=== PATIENT | male | born 1960 | race Caucasian/White ===

== ENCOUNTER 2020-01-26 09:06 | Outpatient (REF) | payer OTHER, SELFPAY ==
--- NOTE | 2020-01-26 09:42 | XR_ITS ---
EXAMINATION: XR HAND, LEFT XR HAND, RIGHT CLINICAL INFORMATION: Hand pain COMPARISON: Left hand radiographs 05/17/2016 TECHNIQUE: 3 views of each hand FINDINGS: Left hand: No fracture or dislocation. There is fusion at the first metacarpophalangeal joint, unchanged from prior. Remaining joint spaces are maintained. Small osteophytes at the first interphalangeal joint. The soft tissues are unremarkable. No osseous erosions. Right hand: No fracture or dislocation. Alignment is maintained. Mild joint space narrowing at the first metacarpophalangeal joint and first interphalangeal joint with osteophyte formation. Osteophytes are also noted at the second and third metacarpophalangeal joints. No osseous erosions. The soft tissues are unremarkable. XR/XR hand RT min 3V IMPRESSION: Arthritic changes as above. Chronic fusion of the left hand first metacarpophalangeal joint.
--- NOTE | 2020-01-26 09:42 | XR_ITS ---
EXAMINATION: XR HAND, LEFT XR HAND, RIGHT CLINICAL INFORMATION: Hand pain COMPARISON: Left hand radiographs 05/17/2016 TECHNIQUE: 3 views of each hand FINDINGS: Left hand: No fracture or dislocation. There is fusion at the first metacarpophalangeal joint, unchanged from prior. Remaining joint spaces are maintained. Small osteophytes at the first interphalangeal joint. The soft tissues are unremarkable. No osseous erosions. Right hand: No fracture or dislocation. Alignment is maintained. Mild joint space narrowing at the first metacarpophalangeal joint and first interphalangeal joint with osteophyte formation. Osteophytes are also noted at the second and third metacarpophalangeal joints. No osseous erosions. The soft tissues are unremarkable. XR/XR hand LT min 3V IMPRESSION: Arthritic changes as above. Chronic fusion of the left hand first metacarpophalangeal joint.
[2020-01-26 10:14] LABS: MANUAL DIFF FLAG NO
[2020-01-26 10:33] LABS: Basophils Percent Auto 0.3 % (0-2); Eosinophils Absolute Auto 0.2 X10*3/uL (0.0-0.4); Eosinophils Percent Auto 2.5 % (0-4); Hematocrit 41.3 % (42-52); Hemoglobin 13.5 g/dl (14.0-18.0); Imm Gran Abs Auto 0.04 X10*3/uL (0.00-0.03); Imm Gran Pct Auto 0.5 % (0.0-0.4); Mean Corpuscular HGB Conc 32.7 g/dl (31.0-36.0); Mean Corpuscular Hemoglobin 29.7 pg (27.0-33.0); Mean Corpuscular Volume 90.8 fL (80-98); Monocytes Absolute Auto 0.6 X10*3/uL (0.1-1.2); Monocytes Percent Auto 7.1 % (2-11); Neutrophils Absolute Auto 4.7 X10*3/uL (2.0-8.3); Neutrophils Percent Auto 54.6 % (45-73); Platelet Count 259 X10*3/uL (160-400); Red Blood Count 4.55 X10*6/uL (4.60-5.80); Red Cell Distribution Width 11.9 % (11.0-16.0); White Blood Count 8.6 X10*3/uL (4.8-10.8)
[2020-01-26 11:00] LABS: Alanine Aminotransferase 33 U/L (0-40); Albumin Level 4.5 g/dL (3.5-5.0); Alkaline Phosphatase 48 U/L (39-117); Anion Gap 14 (12-20); Aspartate Amino Transferase 24 U/L (5-37); Bilirubin Total 0.7 mg/dL (0.0-1.0); Blood Urea Nitrogen 17 mg/dL (9-16); Calcium 9.4 mg/dL (8.4-10.2); Carbon Dioxide 25 mmol/L (22-29); Chloride 104 mmol/L (96-108); Cholesterol 230 mg/dL; Estimated Glomerular Filt Rate 59; Glucose Random 89 mg/dL (60-115); HDL Cholesterol 41 mg/dL; LDL Cholesterol Calculated 147 mg/dl; Sodium 139 mmol/L (135-145); Total Protein 7.5 g/dL (6.5-8.0); Triglycerides 210 mg/dL
[2020-01-26 11:11] LABS: Free T4 (Free Thyroxine) 0.94 ng/dL (0.71-1.85); Prostate Specific Antigen Scr 1.73 ng/mL (<0.05-4.0); Thyroid Stimulating Hormone 1.24 uIU/mL (0.32-4.0)
[2020-01-26 11:42] LABS: Folate 12.5 ng/mL (> or = 4.0); Vitamin B12 323 pg/mL (200-900)
== END 2020-01-26 09:07 | disposition home or self-care (01) ==
LOC: HO.LAB 09:06
PROVIDERS: PCP Internal Medicine; Visit Provider Internal Medicine
DX: E78.2 Mixed hyperlipidemia (principal); E78.00 Pure hypercholesterolemia, unspecified; M79.641 Pain in right hand; M79.642 Pain in left hand
CPT/HCPCS: 36415; 73130; 80053; 80061; 82607; 82746; 84153; 84439; 84443; 85025

== ENCOUNTER 2020-08-02 06:58 | Outpatient (REF) | payer OTHER, SELFPAY ==
[2020-08-02 08:24] LABS: MANUAL DIFF FLAG NO
[2020-08-02 08:38] LABS: Basophils Percent Auto 0.4 % (0-2); Eosinophils Percent Auto 9.5 % (0-4); Hematocrit 41.3 % (42-52); Hemoglobin 13.2 g/dl (14.0-18.0); Imm Gran Abs Auto 0.06 X10*3/uL (0.00-0.03); Imm Gran Pct Auto 0.6 % (0.0-0.4); Immature Retic Fraction 13.6 % (2.3-13.4); Lymphocytes Absolute Auto 3.1 X10*3/uL (1.2-4.9); Lymphocytes Percent Auto 29.7 % (20-40); Mean Corpuscular Hemoglobin 29.4 pg (27.0-33.0); Mean Platelet Volume 10.2 fL (9.4-12.4); Monocytes Absolute Auto 0.8 X10*3/uL (0.1-1.2); Monocytes Percent Auto 7.9 % (2-11); Neutrophils Absolute Auto 5.4 X10*3/uL (2.0-8.3); Neutrophils Percent Auto 51.9 % (45-73); Platelet Count 239 X10*3/uL (160-400); Red Blood Count 4.49 X10*6/uL (4.60-5.80); Retic HGB Equivalent 34.1 pg (30.0-35.0); Reticulocyte Percent 2.6 % (0.5-1.8); Reticulocytes Absolute 0.115 X10*6/uL (0.026-0.095); White Blood Count 10.4 X10*3/uL (4.8-10.8)
[2020-08-02 08:53] LABS: Alanine Aminotransferase 36 U/L (0-40); Albumin Level 4.4 g/dL (3.5-5.0); Alkaline Phosphatase 39 U/L (39-117); Anion Gap 13 (12-20); Aspartate Amino Transferase 19 U/L (5-37); Bilirubin Total 0.8 mg/dL (0.0-1.0); Blood Urea Nitrogen 26 mg/dL (9-16); Calcium 9.6 mg/dL (8.4-10.2); Carbon Dioxide 24 mmol/L (22-29); Chloride 107 mmol/L (96-108); Cholesterol 236 mg/dL; Estimated Glomerular Filt Rate > 60; Glucose Random 89 mg/dL (60-115); HDL Cholesterol 46 mg/dL; Iron 131 mcg/dL (45-160); LDL Cholesterol Calculated 145 mg/dl; Percent Iron Saturation 34 % (15-50); Sodium 140 mmol/L (135-145); Total Iron Binding Capacity 390 mcg/dL (228-428); Total Protein 7.3 g/dL (6.5-8.0); Triglycerides 228 mg/dL; Unsaturated Iron Binding 259 ug/dL
[2020-08-02 09:14] LABS: HIV AB/AG Nonreactive (Nonreactive); HIV Num 1 0.13 S/CO (0.00-0.99); Hepatitis B Surface Antigen Negative (Negative); ~HepC Num1 0.11 S/CO (0.00-0.79); ~Hepatitis C Antibody Nonreactive (Nonreactive)
[2020-08-02 09:22] LABS: Ferritin 291 ng/mL (20-250); Free T4 (Free Thyroxine) 0.95 ng/dL (0.71-1.85); Thyroid Stimulating Hormone 1.78 uIU/mL (0.32-4.0)
[2020-08-02 09:35] LABS: Folate 11.9 ng/mL (> or = 4.0); Vitamin B12 266 pg/mL (200-900)
[2020-08-02 09:51] LABS: CT PCR NOT DETECTED (Not Detect.); NG PCR NOT DETECTED (Not Detect.)
[2020-08-02 09:54] LABS: HBS Num1 0.25 mIU/mL (0-7.99); HBc Num1 0.09 S/CO (0.00-0.79); Hepatitis B Core Antibody Nonreactive (Nonreactive); ~Hepatitis B Surface Antibody NONREACTIVE (Nonreactive)
[2020-08-02 09:55] LABS: Prostate Specific Antigen Scr 2.61 ng/mL (<0.05-4.0)
[2020-08-03 08:02] LABS: Syphilis Screen Nonreactive (Nonreactive)
== END 2020-08-02 06:59 | disposition home or self-care (01) ==
LOC: HO.LAB 06:58
PROVIDERS: PCP Internal Medicine; Visit Provider Internal Medicine
DX: Z01.84 Encounter for antibody response examination (principal); Z12.5 Encounter for screening for malignant neoplasm of prostate; Z11.4 Encounter for screening for human immunodeficiency virus [HIV]; Z11.3 Encounter for screening for infections with a predominantly sexual mode of transmission; E78.00 Pure hypercholesterolemia, unspecified; K21.9 Gastro-esophageal reflux disease without esophagitis; E78.2 Mixed hyperlipidemia; D64.9 Anemia, unspecified
CPT/HCPCS: 80053; 80061; 82607; 82728; 82746; 83540; 84153; 84439; 84443; 85025; 85045; 86704; 86706; 86780; 86803; 87340; 87389; 87491; 87591

== ENCOUNTER 2020-10-19 08:18 | Outpatient (REF) | payer OTHER, SELFPAY ==
--- NOTE | 2020-10-19 08:22 | EMG_ITS ---
This is a 60-year-old man, who is a poor historian, has had bilateral upper extremity pain, numbness, and tingling for an undetermined period of time. He is not on medications except something for high cholesterol, but does not know the name. PHYSICAL EXAMINATION: On examination, he is alert and oriented with normal intellectual functions. Cranial nerves normal. Muscle tone and strength are normal. DTRs symmetrical. No Tinel or Phalen sign. IMPRESSION: Rule out carpal tunnel syndrome. Nerve conduction EMG study: Early carpal tunnel syndrome on the right, otherwise normal study. Normal EMG of the right C5-T1 innervated muscles. MD KOLTON Roman/STUART / [id number]
== END 2020-10-19 08:19 | disposition home or self-care (01) ==
LOC: HO.NEURO 08:18
PROVIDERS: PCP Internal Medicine; Visit Provider Physician Assistant
DX: R20.0 Anesthesia of skin (principal)
CPT/HCPCS: 95885; 95913

== ENCOUNTER 2021-01-17 06:50 | Outpatient (REF) | payer OTHER, SELFPAY ==
[2021-01-17 06:56] LABS: MANUAL DIFF FLAG NO
[2021-01-17 07:28] LABS: Basophils Percent Auto 0.4 % (0-2); Eosinophils Absolute Auto 0.3 X10*3/uL (0.0-0.4); Eosinophils Percent Auto 3.3 % (0-4); Hematocrit 41.4 % (42.0-52.0); Hemoglobin 13.4 g/dl (14.0-18.0); Imm Gran Abs Auto 0.03 X10*3/uL (0.00-0.03); Imm Gran Pct Auto 0.4 % (0.0-0.4); Immature Retic Fraction 9.7 % (2.3-13.4); Lymphocytes Absolute Auto 2.6 X10*3/uL (1.2-4.9); Lymphocytes Percent Auto 30.5 % (20-40); Mean Corpuscular HGB Conc 32.4 g/dl (31.0-36.0); Mean Corpuscular Hemoglobin 29.1 pg (27.0-33.0); Mean Platelet Volume 9.8 fL (9.4-12.4); Monocytes Absolute Auto 0.8 X10*3/uL (0.1-1.2); Monocytes Percent Auto 9.4 % (2-11); Neutrophils Absolute Auto 4.7 x10*3/uL (2.0-8.3); Platelet Count 236 X10*3/uL (160-400); Retic HGB Equivalent 32.6 pg (30.0-35.0); Reticulocyte Percent 2.4 % (0.5-1.8); Reticulocytes Absolute 0.109 X10*6/uL (0.026-0.095); White Blood Count 8.4 X10*3/uL (4.8-10.8)
[2021-01-17 08:26] LABS: Ferritin 265 ng/mL (20-250)
[2021-01-17 08:41] LABS: Alanine Aminotransferase 26 U/L (0-40); Albumin Level 4.5 g/dL (3.5-5.0); Alkaline Phosphatase 40 U/L (39-117); Anion Gap 13 (12-20); Aspartate Amino Transferase 17 U/L (5-37); Bilirubin Total 0.6 mg/dL (0.0-1.0); Blood Urea Nitrogen 17 mg/dL (9-16); Calcium 9.5 mg/dL (8.4-10.2); Carbon Dioxide 24 mmol/L (22-29); Chloride 106 mmol/L (96-108); Cholesterol 196 mg/dL; Estimated Glomerular Filt Rate > 60; Glucose Random 102 mg/dL (60-115); HDL Cholesterol 43 mg/dL; Iron 94 mcg/dL (45-160); LDL Cholesterol Calculated 119 mg/dl; Percent Iron Saturation 24 % (15-50); Potassium 3.8 mmol/L (3.3-5.1); Sodium 139 mmol/L (135-145); Total Iron Binding Capacity 388 mcg/dL (228-428); Total Protein 7.3 g/dL (6.5-8.0); Triglycerides 170 mg/dL; Unsaturated Iron Binding 294 ug/dL
[2021-01-17 09:22] LABS: Folate 15.7 ng/mL (> or = 4.0); Vitamin B12 579 pg/mL (200-900)
== END 2021-01-17 06:51 | disposition home or self-care (01) ==
LOC: HO.LAB 06:50
PROVIDERS: PCP Internal Medicine; Visit Provider Internal Medicine
DX: E53.8 Deficiency of other specified B group vitamins (principal); D64.9 Anemia, unspecified; E78.00 Pure hypercholesterolemia, unspecified; E78.2 Mixed hyperlipidemia
CPT/HCPCS: 36415; 80053; 80061; 82607; 82728; 82746; 83540; 85025; 85045

== ENCOUNTER 2022-01-09 07:50 | Outpatient (REF) | payer OTHER, SELFPAY ==
[2022-01-09 07:58] LABS: MANUAL DIFF FLAG NO
[2022-01-09 08:45] LABS: Basophils Percent Auto 0.2 % (0-2); Eosinophils Absolute Auto 0.2 X10*3/uL (0.0-0.4); Eosinophils Percent Auto 2.1 % (0-4); Hematocrit 42.2 % (42.0-52.0); Hemoglobin 13.7 g/dl (14.0-18.0); Imm Gran Abs Auto 0.04 X10*3/uL (0.00-0.03); Imm Gran Pct Auto 0.4 % (0.0-0.4); Lymphocytes Percent Auto 34.2 % (20-40); Mean Corpuscular HGB Conc 32.5 g/dl (31.0-36.0); Mean Corpuscular Hemoglobin 29.1 pg (27.0-33.0); Mean Corpuscular Volume 89.8 fL (80.0-98.0); Mean Platelet Volume 9.9 fL (9.4-12.4); Monocytes Absolute Auto 0.8 X10*3/uL (0.1-1.2); Monocytes Percent Auto 8.4 % (2-11); Neutrophils Absolute Auto 4.9 x10*3/uL (2.0-8.3); Neutrophils Percent Auto 54.7 % (45-73); Platelet Count 256 X10*3/uL (160-400); Red Cell Distribution Width 11.9 % (11.0-16.0); White Blood Count 8.9 X10*3/uL (4.8-10.8)
[2022-01-09 08:55] LABS: Estimated Average Glucose 105 mg/dL; Hemoglobin A1c % 5.3 %
[2022-01-09 09:24] LABS: Alanine Aminotransferase 23 U/L (0-40); Albumin Level 4.7 g/dL (3.5-5.0); Alkaline Phosphatase 41 U/L (39-117); Anion Gap 17 (12-20); Aspartate Amino Transferase 17 U/L (5-37); Bilirubin Total 0.3 mg/dL (0.0-1.0); Blood Urea Nitrogen 18 mg/dL (9-16); Calcium 9.9 mg/dL (8.4-10.2); Carbon Dioxide 24 mmol/L (22-29); Chloride 106 mmol/L (96-108); Cholesterol 227 mg/dL; Estimated Glomerular Filt Rate 58; Glucose Random 96 mg/dL (60-115); HDL Cholesterol 44 mg/dL; LDL Cholesterol Calculated 131 mg/dl; Potassium 4.2 mmol/L (3.3-5.1); Sodium 143 mmol/L (135-145); Total Protein 7.6 g/dL (6.5-8.0); Triglycerides 262 mg/dL
[2022-01-09 09:49] LABS: Prostate Specific Antigen Scr 2.31 ng/mL (<0.05-4.0); Thyroid Stimulating Hormone 1.35 uIU/mL (0.32-4.0)
[2022-01-09 09:59] LABS: Folate 14.9 ng/mL (> or = 4.0); Vitamin B12 530 pg/mL (200-900)
== END 2022-01-09 07:51 | disposition home or self-care (01) ==
LOC: HO.LAB 07:50
PROVIDERS: PCP Internal Medicine; Visit Provider Internal Medicine
DX: E78.2 Mixed hyperlipidemia (principal); E78.00 Pure hypercholesterolemia, unspecified
CPT/HCPCS: 36415; 80053; 80061; 82607; 82746; 83036; 84153; 84439; 84443; 85025

== ENCOUNTER 2022-01-25 08:26 | Outpatient (REF) | payer OTHER, SELFPAY ==
--- NOTE | ~2022-01-25 | XR_ITS ---
EXAMINATION: BILATERAL KNEE X-RAY CLINICAL INFORMATION: Pain COMPARISON: None TECHNIQUE: 2 views of each knee FINDINGS: Bone alignment is normal. No fracture or dislocation. Normal joint spaces. No joint effusion. Atherosclerotic disease. XR/XR knee LT 2V IMPRESSION: Atherosclerotic disease otherwise unremarkable exam.
--- NOTE | ~2022-01-25 | XR_ITS ---
EXAMINATION: BILATERAL KNEE X-RAY CLINICAL INFORMATION: Pain COMPARISON: None TECHNIQUE: 2 views of each knee FINDINGS: Bone alignment is normal. No fracture or dislocation. Normal joint spaces. No joint effusion. Atherosclerotic disease. XR/XR knee RT 2V IMPRESSION: Atherosclerotic disease otherwise unremarkable exam.
== END 2022-01-25 08:27 | disposition home or self-care (01) ==
LOC: HO.XRAY 08:26
PROVIDERS: PCP Internal Medicine; Visit Provider Internal Medicine
DX: M25.561 Pain in right knee (principal); M25.562 Pain in left knee
CPT/HCPCS: 73560

== ENCOUNTER 2022-04-16 07:51 | Outpatient (REF) | payer OTHER, SELFPAY ==
[2022-04-16 08:03] LABS: MANUAL DIFF FLAG NO
[2022-04-16 08:25] LABS: Basophils Absolute Auto 0.1 X10*3/uL (0.0-0.2); Basophils Percent Auto 0.5 % (0-2); Eosinophils Absolute Auto 0.3 X10*3/uL (0.0-0.4); Hematocrit 43.3 % (42.0-52.0); Hemoglobin 14.2 g/dl (14.0-18.0); Imm Gran Abs Auto 0.08 X10*3/uL (0.00-0.03); Imm Gran Pct Auto 0.7 % (0.0-0.4); Immature Retic Fraction 12.7 % (2.3-13.4); Lymphocytes Absolute Auto 3.2 X10*3/uL (1.2-4.9); Lymphocytes Percent Auto 29.5 % (20-40); Mean Corpuscular HGB Conc 32.8 g/dl (31.0-36.0); Mean Corpuscular Hemoglobin 29.6 pg (27.0-33.0); Mean Corpuscular Volume 90.2 fL (80.0-98.0); Mean Platelet Volume 9.9 fL (9.4-12.4); Monocytes Percent Auto 8.9 % (2-11); Neutrophils Absolute Auto 6.2 x10*3/uL (2.0-8.3); Neutrophils Percent Auto 57.4 % (45-73); Platelet Count 246 X10*3/uL (160-400); Retic HGB Equivalent 34.7 pg (30.0-35.0); Reticulocyte Percent 2.6 % (0.5-1.8); Reticulocytes Absolute 0.126 X10*6/uL (0.026-0.095); White Blood Count 10.8 X10*3/uL (4.8-10.8)
[2022-04-16 08:57] LABS: Alanine Aminotransferase 35 U/L (0-40); Albumin Level 4.6 g/dL (3.5-5.0); Alkaline Phosphatase 42 U/L (39-117); Anion Gap 16 (12-20); Aspartate Amino Transferase 22 U/L (5-37); Bilirubin Total 0.8 mg/dL (0.0-1.0); Blood Urea Nitrogen 21 mg/dL (9-16); Calcium 9.9 mg/dL (8.4-10.2); Carbon Dioxide 23 mmol/L (22-29); Chloride 105 mmol/L (96-108); Cholesterol 227 mg/dL; Estimated Glomerular Filt Rate > 60; Glucose Random 106 mg/dL (60-115); HDL Cholesterol 47 mg/dL; Iron 109 mcg/dL (45-160); LDL Cholesterol Calculated 133 mg/dl; Percent Iron Saturation 28 % (15-50); Potassium 4.1 mmol/L (3.3-5.1); Sodium 140 mmol/L (135-145); Total Iron Binding Capacity 386 mcg/dL (228-428); Total Protein 7.4 g/dL (6.5-8.0); Triglycerides 237 mg/dL; Unsaturated Iron Binding 277 ug/dL
[2022-04-16 09:27] LABS: Ferritin 306 ng/mL (20-250); Folate 9.5 ng/mL (> or = 4.0); Vitamin B12 787 pg/mL (200-900)
== END 2022-04-16 07:52 | disposition home or self-care (01) ==
LOC: HO.LAB 07:51
PROVIDERS: PCP Internal Medicine; Visit Provider Internal Medicine
DX: D64.9 Anemia, unspecified (principal); E78.2 Mixed hyperlipidemia; E78.00 Pure hypercholesterolemia, unspecified
CPT/HCPCS: 36415; 80053; 80061; 82607; 82728; 82746; 83540; 85025; 85045

== ENCOUNTER 2022-05-16 06:34 | Outpatient (REF) | payer OTHER, SELFPAY ==
--- NOTE | ~2022-05-16 | XR_ITS ---
EXAMINATION: XR CHEST CLINICAL INFORMATION: Mild intermittent asthma. COMPARISON: None TECHNIQUE: 2 views of the chest were obtained. FINDINGS: The lungs are somewhat expanded but clear acute pneumonic process. There is mild increased interstitial markings. The heart size and pulmonary vascularity is normal. No gross bony abnormality seen. XR/XR chest 2V IMPRESSION: Unremarkable chest exam. No change from 09/03/2015
[2022-05-16 07:27] LABS: Estimated Average Glucose 111 mg/dL; Hemoglobin A1c % 5.5 %
[2022-05-16 07:35] LABS: Alanine Aminotransferase 30 U/L (0-40); Albumin Level 4.4 g/dL (3.5-5.0); Alkaline Phosphatase 41 U/L (39-117); Anion Gap 13 (12-20); Aspartate Amino Transferase 17 U/L (5-37); Bilirubin Total 0.6 mg/dL (0.0-1.0); Blood Urea Nitrogen 15 mg/dL (9-16); Calcium 9.3 mg/dL (8.4-10.2); Carbon Dioxide 25 mmol/L (22-29); Chloride 108 mmol/L (96-108); Estimated Glomerular Filt Rate > 60; Glucose Random 103 mg/dL (60-115); Potassium 3.9 mmol/L (3.3-5.1); Sodium 142 mmol/L (135-145)
[2022-05-16 07:53] LABS: HBS Num1 0.11 mIU/mL (0-7.99); HBc Num1 0.08 S/CO (0.00-0.79); HBsAGNum1 0.29 S/CO (0.00-0.99); HIV AB/AG Nonreactive (Nonreactive); HIV Num 1 0.12 S/CO (0.00-0.99); Hepatitis B Core Antibody Nonreactive (Nonreactive); Hepatitis B Surface Antigen Negative (Negative); Syphilis Screen Nonreactive (Nonreactive); ~HepC Num1 0.13 S/CO (0.00-0.79); ~Hepatitis B Surface Antibody NONREACTIVE (Nonreactive); ~Hepatitis C Antibody Nonreactive (Nonreactive)
== END 2022-05-16 06:35 | disposition home or self-care (01) ==
LOC: HO.XRAY 06:34
PROVIDERS: PCP Internal Medicine; Visit Provider Internal Medicine
DX: Z11.4 Encounter for screening for human immunodeficiency virus [HIV] (principal); Z20.2 Contact with and (suspected) exposure to infections with a predominantly sexual mode of transmission; R79.89 Other specified abnormal findings of blood chemistry; R73.01 Impaired fasting glucose; E78.2 Mixed hyperlipidemia; J45.20 Mild intermittent asthma, uncomplicated
CPT/HCPCS: 36415; 71046; 80053; 83036; 86704; 86706; 86780; 86803; 87340; 87389

== ENCOUNTER → 2022-06-04 08:42 | Outpatient (REF) | payer OTHER, SELFPAY ==
--- NOTE | 2022-06-04 08:44 | CA_ITS ---
Acquisition Time: 2022-06-04 08:52:05 Total Exercise Time: 00:04:28 Test Indications: R06.02 - Shortness of breath Medications: Protocol: KODI Max HR: 118 BPM 75% of Pred: 156 BPM Max BP: 140/090 mmHG Max Work Load: 6.3 METS Exercise stress test with exercise 4 min 28 sec of Kodi protocol, achieving 75% MPHR with request to stop due to knee pain, with report of 8/10 chest tightness and mild to moderate sob with exercise, without arrythmia, with normotensive response to exercise, with nondiagnostic EKG for ischemia due to suboptimal heart rate. In recovery his symptoms gradually resolved. Test reviewed with Dr Cabrera Message sent to Dr Robertson with results and recommendation for a pharmacological nuclear stress test for further evaluation. Referred By: Brain Robertson Overread By: HERSON MONTEMAYOR
== END ==
LOC: HO.CARD 08:42
PROVIDERS: PCP Internal Medicine; Visit Provider Internal Medicine
DX: R06.02 Shortness of breath (principal)
CPT/HCPCS: 93017

== ENCOUNTER → 2022-06-21 08:02 | Outpatient (REF) | payer OTHER, SELFPAY ==
--- NOTE | ~2022-06-21 | NM_ITS ---
Myocardial perfusion study Indication: Shortness of breath evaluate for myocardial ischemia Technique: The patient was brought in for a Lexiscan perfusion study on 06/21/2022. Patient performed low-level exercise and was injected 0.4 mg of Lexiscan intravenously. Within a minute of injection, 30 mCi of sestamibi was given intravenously. Images were obtained using the SPECT gamma camera interlaced with the gating device. Images were obtained in supine position. Resting perfusion study was performed on 06/22/2022. Patient was administered 30 mCi of sestamibi intravenously at rest. Images were then obtained in supine position. Images obtained with and without CT attenuation. Total DLP 95 mGy-cm. Images were processed with the software and compared side to side in short axis, horizontal long axis and vertical long axis views. Findings: The stress perfusion study showed non attenuated images show mildly reduced uptake in the basal inferior and basal inferolateral wall of the LV myocardium. Remainder of the LV myocardium is normally perfused. Attenuation corrected images show mildly reduced uptake in the apex of the LV myocardium.. The gated study shows normal LV systolic function with calculated LVEF of 73%. LV cavity is mildly dilated size. The gated study shows no wall thickening and contraction of segments. Resting study shows no change in perfusion pattern compared to stress perfusion study. Gating at rest reveals normal systolic wall motion with ejection fraction at greater than 60%. The findings are consistent with no reversible defect, most likely normal myocardial perfusion. NM/NM cardiolite stress test Impression: 1. Myocardial perfusion imaging study shows likely normal myocardial perfusion 2. Gated LVEF is greater than 60% 3. Transient ischemic dilatation not present EKG is nondiagnostic for ischemia
--- NOTE | 2022-06-21 08:07 | CA_ITS ---
Acquisition Time: 2022-06-21 08:21:27 Total Exercise Time: 00:02:00 Test Indications: Dyspnea Medications: FENOFIBRATE MELOXICAM PRAVASTATIN ZOLPIDEM Protocol: LEXISCAN Max HR: 096 BPM 61% of Pred: 156 BPM Max BP: 146/074 mmHG Max Work Load: 1.0 METS Pharmacological stress test with Lexiscan injection while sitting and kicking his legs, without anignal symptoms, without arryhtmias, with normotensive response to injection, without EKG changes. Nuclear images pending. Test reciewed with Dr. Trujillo. Referred By: Brain Robertson Overread By: HERSON MONTEMAYOR
== END ==
LOC: HO.CARD 08:02
PROVIDERS: Visit Provider Internal Medicine
DX: R06.02 Shortness of breath (principal)
CPT/HCPCS: 78452; 93017; A9500; J0280; J2785

== ENCOUNTER 2022-07-11 10:10 | Outpatient (REF) | payer OTHER, SELFPAY ==
--- NOTE | ~2022-07-11 | US_ITS ---
EXAMINATION: NONINVASIVE ASSESSMENT OF THE ARTERIES OF BOTH LOWER EXTREMITIES WITH BILATERAL LOWER EXTREMITY DUPLEX CLINICAL INFORMATION: Peripheral vascular disease TECHNIQUE: Bilateral lower extremity duplex Doppler techniques with wave form analysis and measurement of velocities in the common femoral, profunda femoral, superficial femoral, popliteal and tibial arteries. The study was performed only at rest. COMPARISON: None FINDINGS: a) AT REST: RIGHT LEG: Right direct duplex Doppler findings: Normal * Common femoral artery: 125 cm/s, Diastolic flow reversal: Yes * Superficial femoral artery (proximal, mid, distal): 87, 108 and 73 cm/s, Diastolic flow reversal: Yes * Popliteal artery: 83 cm/s, Diastolic flow reversal: Yes * Posterior tibial artery: 85 cm/s, Diastolic flow reversal: Yes LEFT LE. Left direct duplex Doppler findings: Normal * Common femoral artery: 103 cm/s, Diastolic flow reversal: Yes * Superficial femoral artery (proximal, mid, distal): 77, 89 and 75 cm/s, Diastolic flow reversal: Yes * Popliteal artery: 78 cm/s, Diastolic flow reversal: Yes * Posterior tibial artery: 75 cm/s, Diastolic flow reversal: Yes * US/US arterial duplex LE IMPRESSION: There is no evidence of any hemodynamically significant lower extremity arterial disease by duplex Doppler criteria at rest.
== END 2022-07-11 10:11 | disposition home or self-care (01) ==
LOC: HO.US 10:10
PROVIDERS: PCP Internal Medicine; Visit Provider Internal Medicine
DX: I73.9 Peripheral vascular disease, unspecified (principal)
CPT/HCPCS: 93925

== ENCOUNTER 2022-08-01 06:23 | Outpatient (REF) | payer OTHER, SELFPAY ==
[2022-08-01 08:21] LABS: Cholesterol 202 mg/dL; HDL Cholesterol 38 mg/dL; Triglycerides 663 mg/dL
== END 2022-08-01 06:24 | disposition home or self-care (01) ==
LOC: HO.LAB 06:23
PROVIDERS: PCP Internal Medicine; Visit Provider Internal Medicine
DX: E78.00 Pure hypercholesterolemia, unspecified (principal); E78.2 Mixed hyperlipidemia
CPT/HCPCS: 36415; 80061

== ENCOUNTER 2022-10-10 08:12 | Outpatient (AMB) | payer OTHER, SELFPAY ==
[2022-10-10 08:16] VITALS: BP 122/68; PULSE 65; O2SAT 97; BMI 30.2
--- NOTE | 2022-10-10 08:16 | A.OFFPC_ITS ---
Vital Signs 10/10/22 08:16 Height 5 ft 6 in Weight 187 lb BMI 30.2 BP 122/68 Blood Pressure Location Lt brachial Position Sitting Pulse 65 Pulse Source Pulse Oximeter Pulse Oximetry (%) 97 Oxygen Delivery Method Room Air Intake Visit Reasons: Hypercholesterolemia,IGT,anemia, left knee pain Allergies No Known Allergies [No Known Allergies*] Allergy (Verified 10/10/22 08:17) Tobacco use date assessed: 05/11/22 Fall risk assessment: No Falls in past year Last assessed Fall Risk: 10/10/22 Dental Screening Dental Screen Date: 10/10/22 Did you have a dental visit in the last 12 months?: Yes Did you have a dental problem in the last 6 months where you did not have access to dental care?: No Was dental information given to patient?: Patient has dentist HPI Hypercholesterolemia,IGT,anemia HPI Details 62-year-old obese male with hypercholesterolemia GERD impaired glucose tolerance peripheral arterial disease asthma coming in for follow-up. Last seen in May 2022 for physical exam. Patient had arterial workup of the lower extremity results:There is no evidence of any hemodynamically significant lower extremity arterial disease by duplex Doppler criteria at rest. July 2022 Nuclear stress test June 2022Myocardial perfusion imaging study shows likely normal myocardial perfusion 2. Gated LVEF is greater than 60% 3. Transient ischemic dilatation not present [facility] Medical History (Updated 10/10/22 @ 08:53 by Brain Robertson MD) Alcohol abuse Anemia Anxiety and depression Asthma Bilateral hand numbness BPH (benign prostatic hyperplasia) Fatty liver GERD (gastroesophageal reflux disease) Hard of hearing Hyperlipidemia Obesity (BMI 30-39.9) SOB (shortness of breath) on exertion Vitamin D deficiency Surgical History History of deviated nasal septum History of thumb surgery Family History (Updated 10/10/22 @ 08:17 by Ashley Wilder CMA) Father Medical history unknown Mother No problems noted. Sister Heart attack Other Breast cancer Social History (Updated 05/11/22 @ 16:50 by Brain Robertson MD) Housing: Apartment Alcohol intake: current Alcohol intake frequency: holidays/special occasions only Alcohol type: beer and wine Patient Tobacco Use Status: Never used Tobacco e-Cigarette/Vaping Use: Never Used Second Hand Smoke Exposure: No service: No Current occupational status: unemployed Cognitive needs: No Hearing needs: No Vision needs: No Questionnaire PHQ-9 Over the last 2 weeks, how often have you been bothered by any of the following problems? 1. Little interest or pleasure in doing things: not at all 2. Feeling down, depressed, or hopeless: not at all 3. Trouble falling or staying asleep, or sleeping too much: not at all 4. Feeling tired or having little energy: not at all 5. Poor appetite or overeating: not at all 6. Feeling bad about yourself - or that you are a failure or have let yourself or your family down: not at all 7. Trouble concentrating on things, such as reading the newspaper or watching television: not at all 8. Moving or speaking so slowly that other people could have noticed. Or the opposite - being so fidgety or restless that you have been moving around a lot more than usual: not at all 9. Thoughts that you would be better off or of hurting yourself in some way: not at all Total score: 0 Depression Screening Interpretation: Negative Source: Developed by Drs. Pavan Thomas, Leanne Sam, Mathew Wray and colleagues, with an educational mario from [employer]. Thrive Questionnaire Date Thrive assessed: 05/11/22 AUDIT C Alcohol Use Questionnaire (AUDIT-C) 1. How often do you have a drink containing alcohol?: Monthly or less 2. How many drinks containing alcohol do you have on a typical day when you are drinking?: 1 or 2 3. How often do you have six or more drinks on one occasion?: Never Total Score: 1 JOCELYN-7 AMB Questionnaire JOCELYN-7 Date JOCELYN - 7 assessed: 05/11/22 Source: Developed by Drs. Pavan Thomas, Leanne Sam, Mathew Wray and colleagues, with an educational mario from [employer]. Physical exam (Primary Care) Vital Signs: Last Vital Signs Pulse 65 10/10/22 08:16 BP 122/68 10/10/22 08:16 Pulse Ox 97 10/10/22 08:16 Oxygen Delivery Method Room Air 10/10/22 08:16 BMI result Body Mass Index 30.2 Tobacco/Smoking Status: Tobacco use Status Tobacco use date assessed 05/11/22 10/10/22 08:21 Patient Tobacco Use Status Never used Tobacco 10/10/22 08:21 e-Cigarette/Vaping Use Never Used 10/10/22 08:21 PHQ-9: PHQ-9 Score PHQ-9: Total score 0 10/10/22 08:21 Depression Screening Interpretation: Negative Thrive Assessment: Date of Thrive Assessment Date Thrive assessed 05/11/22 10/10/22 08:21 Const General: alert; No acute distress Eyes Conjunctivae: conjunctivae normal Resp Auscultation: clear to auscultation bilaterally Cardio Rate: regular rate Rhythm: regular rhythm GI Inspection: Yes normal to inspection Extrem General: Yes normal to inspection and No edema Assessment and Plan Assessment & Plan (1) Peripheral arterial disease: Comment: July 2022 workup negative Code(s): I73.9 - Peripheral vascular disease, unspecified Plan: Test normal no problem with circulation (2) Impaired fasting blood sugar: Code(s): R73.01 - Impaired fasting glucose Plan: Decrease the amount of carbohydrate intake, pasta, bread, rice and potatoes are all sugar and that is aside from all the sweet stuff, remember that fruits are good but they are Sweet also. (3) Obesity (BMI 30-39.9): Code(s): E66.9 - Obesity, unspecified Plan: Diet and exercise noted waiting (4) Hyperlipidemia: Code(s): E78.5 - Hyperlipidemia, unspecified Qualifiers: Hyperlipidemia type: mixed hyperlipidemia Qualified Code(s): E78.2 - Mixed hyperlipidemia Plan: Avoid fried foods, chicken skin, eggs, butter margarine, pastries and meat. Be it pork or beef they have a lot of cholesterol LDL going of less than 30 and triglyceride of less than 150 patient is presently on atorvastatin 40 in fenofibrate 160 mg once a day (5) Asthma: Comment: PFT 2011 Code(s): J45.909 - Unspecified asthma, uncomplicated Qualifiers: Asthma severity: mild Asthma persistence: intermittent Asthma complication type: uncomplicated Qualified Code(s): J45.20 - Mild intermittent asthma, uncomplicated Plan: Continue with the inhalers (6) GERD (gastroesophageal reflux disease): Code(s): K21.9 - Gastro-esophageal reflux disease without esophagitis Qualifiers: Esophagitis presence: without esophagitis Qualified Code(s): K21.9 - Gastro-esophageal reflux disease without esophagitis Plan: Avoid the foods that causes that usually spicy foods, tomato products, juices, coffee, soda and foods that your sensitive to. After eating do not lie down, allow 3-4 hours before in lie down. And keep the head of bed above 30 degrees to avoid the acid from going up. (7) Hip pain, left: Code(s): M25.552 - Pain in left hip Orders: Orders Comprehensive Met. Panel Today E78.2 - Mixed hyperlipidemia Hemoglobin A1c Today R73.01 - Impaired fasting glucose Lipid Panel Today E78.00 - Pure hypercholesterolemia, unspecified, E78.2 - Mixed hyperlipidemia Free T4 (Free Thyroxine) Today R73.01 - Impaired fasting glucose Thyroid Stimulating Hormone Today R73.01 - Impaired fasting glucose XR hip LT min 2V Today M25.552 - Pain in left hip Coding Level of Care Code Est Pt Level 4 (39069) Diagnoses Peripheral arterial disease I73.9 Impaired fasting blood sugar R73.01 Obesity (BMI 30-39.9) E66.9 Hyperlipidemia E78.2 Hyperlipidemia type: mixed hyperlipidemia Asthma J45.20 Asthma severity: mild Asthma persistence: intermittent Asthma complication type: uncomplicated GERD (gastroesophageal reflux disease) K21.9 Esophagitis presence: without esophagitis Hip pain, left M25.552 Additional Codes PHQ-9 - 07346 - PHQ-9 Billing: Y ([id number])
== END 2022-10-10 09:23 | disposition home or self-care (01) ==
PROVIDERS: PCP Internal Medicine; Visit Provider Internal Medicine
DX: I73.9 Peripheral vascular disease, unspecified (principal); E66.9 Obesity, unspecified; J45.20 Mild intermittent asthma, uncomplicated; Z68.30 Body mass index [BMI] 30.0-30.9, adult; K21.9 Gastro-esophageal reflux disease without esophagitis; R73.01 Impaired fasting glucose; E78.2 Mixed hyperlipidemia; M25.552 Pain in left hip
CPT/HCPCS: 99214

== ENCOUNTER 2022-10-10 09:09 | Outpatient (REF) | payer OTHER, SELFPAY ==
--- NOTE | ~2022-10-10 | XR_ITS ---
EXAMINATION: XR HIP, LEFT With One View Pelvis CLINICAL INFORMATION: Pain in left hip COMPARISON: None available. TECHNIQUE: Two views of the left hip. AP pelvis FINDINGS: No fracture. Alignment is anatomic. The sacroiliac joints and hip joints are normal. Minimal degenerative change of the pubic symphysis. Soft tissues are unremarkable. XR/XR hip LT w PEL1V IMPRESSION: Minimal degenerative change of the pubic symphysis. No bony abnormality of the left hip.
[2022-10-10 10:13] LABS: Estimated Average Glucose 100 mg/dL; Hemoglobin A1c % 5.1 %
[2022-10-10 11:08] LABS: Alanine Aminotransferase 29 U/L (0-40); Albumin Level 4.4 g/dL (3.5-5.0); Alkaline Phosphatase 69 U/L (39-117); Anion Gap 15 (12-20); Aspartate Amino Transferase 20 U/L (5-37); Bilirubin Total 0.7 mg/dL (0.0-1.0); Blood Urea Nitrogen 16 mg/dL (9-16); Calcium 9.7 mg/dL (8.4-10.2); Carbon Dioxide 24 mmol/L (22-29); Chloride 106 mmol/L (96-108); Cholesterol 190 mg/dL; Estimated Glomerular Filt Rate > 60; Glucose Random 106 mg/dL (60-115); HDL Cholesterol 38 mg/dL; Potassium 4.2 mmol/L (3.3-5.1); Sodium 141 mmol/L (135-145); Total Protein 7.5 g/dL (6.5-8.0); Triglycerides 444 mg/dL
[2022-10-10 11:15] LABS: Free T4 (Free Thyroxine) 0.85 ng/dL (0.71-1.85); Thyroid Stimulating Hormone 1.33 uIU/mL (0.32-4.0)
== END 2022-10-10 09:10 | disposition home or self-care (01) ==
LOC: HO.LAB 09:09
PROVIDERS: PCP Internal Medicine; Visit Provider Internal Medicine
DX: E78.2 Mixed hyperlipidemia (principal); M25.552 Pain in left hip; R73.01 Impaired fasting glucose; E78.00 Pure hypercholesterolemia, unspecified
CPT/HCPCS: 36415; 73502; 80053; 80061; 83036; 84439; 84443

== ENCOUNTER 2023-01-22 08:04 | Outpatient (AMB) | payer OTHER, SELFPAY ==
--- NOTE | 2023-01-22 08:29 | MHC.PC.OV ---
Vital Signs 01/22/23 08:31 Height 5 ft 6 in Weight 191 lb 8 oz BMI 30.9 BP 130/70 Blood Pressure Location Lt brachial Position Sitting Pulse 80 Pulse Source Pulse Oximeter Pulse Oximetry (%) 95 Oxygen Delivery Method Room Air Intake Visit Reasons: hypertriglyceride, L hip pain Intake Note: Patient is here to follow up on hypertriglyceride, left hip pain. Complaint of right need pain and difficult sleep. 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 Allergies No Known Allergies [No Known Allergies*] Allergy (Verified 01/22/23 08:30) Medication List - Last Reconciled 01/22/23 by Brain Robertson MD albuterol sulfate 90 mcg/actuation (Proventil HFA) 2 puffs inhalation Q4-6H PRN albuterol sulfate 90 mcg/actuation (Ventolin HFA) 2 puffs inhalation Q6H PRN atorvastatin 40 mg PO BEDTIME cyanocobalamin (vitamin B-12) 1,000 mcg PO DAILY docusate sodium (Colace) 100 mg PO DAILY fenofibrate 160 mg PO DAILY meloxicam 15 mg PO DAILY zolpidem 10 mg PO BEDTIME PRN Tobacco use date assessed: 01/22/23 Fall risk assessment: 2 + Falls in past year Last assessed Fall Risk: 01/22/23 Dental Screening Dental Screen Date: 01/22/23 Did you have a dental visit in the last 12 months?: Yes Did you have a dental problem in the last 6 months where you did not have access to dental care?: No Was dental information given to patient?: Patient has dentist HPI hypertriglyceride, L hip pain HPI Details 62-year-old obese male with impaired glucose tolerance hypercholesterolemia asthma and GERD last seen in October 2022. Colonoscopy is up-to-date September 2013 patient comes in for follow-up REPLACED BY [facility] Medical History (Updated 01/22/23 @ 08:43 by Brain Robertson MD) Insomnia SOB (shortness of breath) on exertion Bilateral hand numbness Hard of hearing Obesity (BMI 30-39.9) BPH (benign prostatic hyperplasia) Vitamin D deficiency Hyperlipidemia Alcohol abuse Anxiety and depression Fatty liver Asthma Anemia GERD (gastroesophageal reflux disease) Surgical History History of thumb surgery History of deviated nasal septum Family History Father Medical history unknown Mother No problems noted. Sister Heart attack Other Breast cancer Social History Housing: Apartment Alcohol intake: current Alcohol intake frequency: holidays/special occasions only Alcohol type: beer and wine Patient Tobacco Use Status: Never used Tobacco e-Cigarette/Vaping Use: Never Used Second Hand Smoke Exposure: No service: No Current occupational status: unemployed Cognitive needs: No Hearing needs: No Vision needs: No Questionnaire Thrive Questionnaire Date Thrive assessed: 05/11/22 JOCELYN-7 AMB Questionnaire JOCELYN-7 Date JOCELYN - 7 assessed: 05/11/22 Source: Developed by Drs. Pavan Thomas, Leanne Sam, Mathew Wray and colleagues, with an educational mario from [employer]. Physical exam (Primary Care) Vital Signs: Last Vital Signs Pulse 80 01/22/23 08:31 BP 130/70 01/22/23 08:31 Pulse Ox 95 01/22/23 08:31 Oxygen Delivery Method Room Air 01/22/23 08:31 BMI result Body Mass Index 30.9 Tobacco/Smoking Status: Tobacco use Status Tobacco use date assessed 01/22/23 01/22/23 08:38 Patient Tobacco Use Status Never used Tobacco 01/22/23 08:38 e-Cigarette/Vaping Use Never Used 01/22/23 08:38 Thrive Assessment: Date of Thrive Assessment Date Thrive assessed 05/11/22 01/22/23 08:38 Const General: alert; No acute distress Eyes Conjunctivae: conjunctivae normal Resp Auscultation: clear to auscultation bilaterally Cardio Rate: regular rate Rhythm: regular rhythm GI Inspection: Yes normal to inspection Extrem General: Yes normal to inspection and No edema Office Procedures Flu Questionnaire Does the patient have a severe egg allergy?: No Does the patient have severe life threatening allergies?: No Does the patient have a fever or illness today?: No Has the patient ever had Guillain-[place] Syndrome?: No Has the patient ever had any past reaction to a flu shot?: No Immunizations flu vacc [id number] 6mos up(PF) 60 mcg(15 mcgx4)/0.5 mL IM syringe Performing Provider: Brain Robertson MD [facility] Administered by: Ashley Wilder CMA on 01/22/23 08:42 Dose Route Admin Location Dispensed Lot Number Expiration Date [employer] 0.5 mL IM Left Deltoid 0.5 mL [id number] 09/07/22 [id number] [employer] VIS Given Date VIS Provided VIS Publication Date 01/22/23 Single Vaccine 20 Eligibility Eligibility Date Funding Source Not [facility] Eligible 01/22/23 Private Assessment and Plan Assessment & Plan (1) Obesity (BMI 30-39.9): Code(s): E66.9 - Obesity, unspecified Plan: Diet and exercise patient continues to gain weight (2) Hyperlipidemia: Code(s): E78.5 - Hyperlipidemia, unspecified Qualifiers: Hyperlipidemia type: mixed hyperlipidemia Qualified Code(s): E78.2 - Mixed hyperlipidemia Plan: Avoid fried foods, chicken skin, eggs, butter margarine, pastries and meat. Be it pork or beef they have a lot of cholesterol LDL goal of less than 130 and triglyceride of less than 150 patient is presently on fenofibrate and atorvastatin (3) Asthma: Comment: PFT 2011 Code(s): J45.909 - Unspecified asthma, uncomplicated Qualifiers: Asthma complication type: uncomplicated Asthma persistence: intermittent Asthma severity: mild Qualified Code(s): J45.20 - Mild intermittent asthma, uncomplicated Plan: Continue with inhaler (4) GERD (gastroesophageal reflux disease): Code(s): K21.9 - Gastro-esophageal reflux disease without esophagitis Qualifiers: Esophagitis presence: without esophagitis Qualified Code(s): K21.9 - Gastro-esophageal reflux disease without esophagitis Plan: Avoid the foods that causes that usually spicy foods, tomato products, juices, coffee, soda and foods that your sensitive to. After eating do not lie down, allow 3-4 hours before in lie down. And keep the head of bed above 30 degrees to avoid the acid from going up. (5) Impaired fasting blood sugar: Code(s): R73.01 - Impaired fasting glucose Plan: Decrease the amount of carbohydrate intake, pasta, bread, rice and potatoes are all sugar and that is aside from all the sweet stuff, remember that fruits are good but they are Sweet also. (6) Insomnia: Code(s): G47.00 - Insomnia, unspecified Plan: Continue with medication as needed Orders: Orders Influenza [id number] Immunization Today Z23 - Encounter for immunization Comprehensive Met. Panel 3 Months E78.2 - Mixed hyperlipidemia Thyroid Stimulating Hormone 3 Months E78.2 - Mixed hyperlipidemia Hemoglobin A1c 3 Months R73.01 - Impaired fasting glucose Complete Blood Count Auto Diff 3 Months E78.2 - Mixed hyperlipidemia Lipid Panel 3 Months E78.00 - Pure hypercholesterolemia, unspecified, E78.2 - Mixed hyperlipidemia Free T4 (Free Thyroxine) 3 Months E78.2 - Mixed hyperlipidemia Medications: Changed From zolpidem (Ambien) 5 mg PO BEDTIME PRN 30 tabs 0RF sleep G47.00 - Insomnia, unspecified To zolpidem 10 mg PO BEDTIME PRN 30 tabs 1RF sleep G47.00 - Insomnia, unspecified Coding Level of Care Code Est Pt Level 4 (67258) Diagnoses Obesity (BMI 30-39.9) E66.9 Mixed hyperlipidemia E78.2 Hyperlipidemia type: mixed hyperlipidemia Mild intermittent asthma without complication J45.20 Asthma complication type: uncomplicated Asthma persistence: intermittent Asthma severity: mild Gastroesophageal reflux disease without esophagitis K21.9 Esophagitis presence: without esophagitis Impaired fasting blood sugar R73.01 Insomnia G47.00
[2023-01-22 08:31] VITALS: BP 130/70; PULSE 80; O2SAT 95; BMI 30.9
== END 2023-01-22 09:05 | disposition home or self-care (01) ==
PROVIDERS: PCP Internal Medicine; Visit Provider Internal Medicine
DX: E78.2 Mixed hyperlipidemia (principal); J45.20 Mild intermittent asthma, uncomplicated; E66.9 Obesity, unspecified; K21.9 Gastro-esophageal reflux disease without esophagitis; R73.01 Impaired fasting glucose; Z23 Encounter for immunization; G47.00 Insomnia, unspecified; Z68.30 Body mass index [BMI] 30.0-30.9, adult
CPT/HCPCS: 90471; 90686; 99214

== ENCOUNTER 2023-04-03 10:41 | Outpatient (REF) | payer OTHER, SELFPAY ==
[2023-04-03 11:19] LABS: MANUAL DIFF FLAG NO
[2023-04-03 11:59] LABS: Basophils Percent Auto 0.3 % (0-2); Eosinophils Absolute Auto 0.2 X10*3/uL (0.0-0.4); Eosinophils Percent Auto 2.2 % (0-4); Hematocrit 42.5 % (42.0-52.0); Hemoglobin 13.8 g/dl (14.0-18.0); Imm Gran Abs Auto 0.04 X10*3/uL (0.00-0.03); Imm Gran Pct Auto 0.4 % (0.0-0.4); Lymphocytes Absolute Auto 2.2 X10*3/uL (1.2-4.9); Lymphocytes Percent Auto 24.2 % (20-40); Mean Corpuscular HGB Conc 32.5 g/dl (31.0-36.0); Mean Corpuscular Hemoglobin 29.6 pg (27.0-33.0); Mean Platelet Volume 9.9 fL (9.4-12.4); Monocytes Absolute Auto 0.7 X10*3/uL (0.1-1.2); Monocytes Percent Auto 8.1 % (2-11); Neutrophils Absolute Auto 5.9 x10*3/uL (2.0-8.3); Neutrophils Percent Auto 64.8 % (45-73); Platelet Count 245 X10*3/uL (160-400); Red Blood Count 4.67 X10*6/uL (4.60-5.80); Red Cell Distribution Width 12.1 % (11.0-16.0); White Blood Count 9.1 X10*3/uL (4.8-10.8)
[2023-04-03 12:03] LABS: Estimated Average Glucose 103 mg/dL; Hemoglobin A1C 116.9153 umol/L; Hemoglobin A1c % 5.2 % (<6.0)
[2023-04-03 12:40] LABS: Alanine Aminotransferase 28 U/L (0-40); Albumin Level 4.5 g/dL (3.5-5.0); Alkaline Phosphatase 42 U/L (39-117); Anion Gap 13 (12-20); Aspartate Amino Transferase 18 U/L (5-37); Bilirubin Total 0.5 mg/dL (0.0-1.0); Blood Urea Nitrogen 16 mg/dL (9-16); Calcium 9.9 mg/dL (8.4-10.2); Carbon Dioxide 25 mmol/L (22-29); Chloride 104 mmol/L (96-108); Cholesterol 220 mg/dL (<200); Estimated Glomerular Filt Rate > 60; Glucose Random 92 mg/dL (60-115); HDL Cholesterol 44 mg/dL (>40); LDL Cholesterol Calculated 138 mg/dL (<100); Sodium 138 mmol/L (135-145); Total Protein 7.9 g/dL (6.5-8.0); Triglycerides 190 mg/dL (<150)
[2023-04-03 12:58] LABS: Free T4 (Free Thyroxine) 0.88 ng/dL (0.71-1.85); Thyroid Stimulating Hormone 1.11 uIU/mL (0.32-4.0)
== END 2023-04-03 10:42 | disposition home or self-care (01) ==
LOC: HO.LAB 10:41
PROVIDERS: PCP Internal Medicine; Visit Provider Internal Medicine
DX: E78.2 Mixed hyperlipidemia (principal); E78.00 Pure hypercholesterolemia, unspecified; R73.01 Impaired fasting glucose
CPT/HCPCS: 36415; 80053; 80061; 83036; 84439; 84443; 85025

== ENCOUNTER 2023-05-03 09:34 | Outpatient (AMB) | payer OTHER, SELFPAY ==
[2023-05-03 09:45] VITALS: BP 138/82; PULSE 64; O2SAT 96; BMI 29.7
--- NOTE | 2023-05-03 09:45 | A.OFFPC_ITS ---
Vital Signs 05/03/23 09:45 Height 5 ft 6 in Weight 184 lb BMI 29.7 BP 138/82 Blood Pressure Location Lt brachial Position Sitting Pulse 64 Pulse Source Pulse Oximeter Pulse Oximetry (%) 96 Oxygen Delivery Method Room Air Intake Visit Reasons: hypertriglyceride Fabric Normalizer Required: No Allergies No Known Allergies [No Known Allergies*] Allergy (Verified 01/22/23 08:30) Medication List - Last Reconciled 05/03/23 by Brain Robertson MD albuterol sulfate 90 mcg/actuation (Ventolin HFA) 2 puffs inhalation Q6H PRN atorvastatin 40 mg PO BEDTIME cyanocobalamin (vitamin B-12) 1,000 mcg PO DAILY docusate sodium (Colace) 100 mg PO DAILY fenofibrate 160 mg PO DAILY fluticasone propionate 110 mcg/actuation 2 inhalations inhalation BID meloxicam 15 mg PO DAILY zolpidem 10 mg PO BEDTIME PRN Tobacco use date assessed: 05/03/23 Fall risk assessment: No Falls in past year Last assessed Fall Risk: 05/03/23 Dental Screening Dental Screen Date: 05/03/23 Did you have a dental visit in the last 12 months?: Yes Did you have a dental problem in the last 6 months where you did not have access to dental care?: No Was dental information given to patient?: Patient has dentist HPI hypertriglyceride HPI Details 63-year-old overweight male with hyperch olesterolemia asthma GERD impaired glucose tolerance and insomnia last seen in January 2023. Patient's colonoscopy was last done in September 2013. daughter is interpret. discussed about the asthma med patient states that the albuterol inhaler has . Discussed about the albuterol inhaler and with him getting short of breath on exertion discussed about use of albuterol short-acting and will start on Flovent as a controller. Discussed about insurance coverages and they will call and let me know. Also as far as cholesterol is concerned discussed about the results and discussed about diet will increase atorvastatin to 80 mg and retest cholesterol in 3 months. Discussed about eating better also as for insomnia was asking for a higher dose but discussed that his dose is also high already and so will just need refill. [facility] Medical History (Updated 05/03/23 @ 10:12 by Brain Robertson MD) Insomnia SOB (shortness of breath) on exertion Bilateral hand numbness Hard of hearing Obesity (BMI 30-39.9) BPH (benign prostatic hyperplasia) Vitamin D deficiency Hyperlipidemia Alcohol abuse Anxiety and depression Fatty liver Asthma Anemia GERD (gastroesophageal reflux disease) Surgical History History of thumb surgery History of deviated nasal septum Family History Father Medical history unknown Mother No problems noted. Sister Heart attack Other Breast cancer Social History Housing: Apartment Alcohol intake: current Alcohol intake frequency: holidays/special occasions only Alcohol type: beer and wine Patient Tobacco Use Status: Never used Tobacco e-Cigarette/Vaping Use: Never Used Second Hand Smoke Exposure: No service: No Current occupational status: unemployed Cognitive needs: No Hearing needs: No Vision needs: No Questionnaire PHQ-9 Over the last 2 weeks, how often have you been bothered by any of the following problems? 1. Little interest or pleasure in doing things: not at all 2. Feeling down, depressed, or hopeless: not at all 3. Trouble falling or staying asleep, or sleeping too much: not at all 4. Feeling tired or having little energy: not at all 5. Poor appetite or overeating: not at all 6. Feeling bad about yourself - or that you are a failure or have let yourself or your family down: not at all 7. Trouble concentrating on things, such as reading the newspaper or watching television: not at all 8. Moving or speaking so slowly that other people could have noticed. Or the opposite - being so fidgety or restless that you have been moving around a lot more than usual: not at all 9. Thoughts that you would be better off or of hurting yourself in some way: not at all Total score: 0 Depression Screening Interpretation: Negative Depression Screening Done: Yes Source: Developed by Drs. Pavan Thomas, Leanne Sam, Mathew Wray and colleagues, with an educational mario from [employer]. Thrive Questionnaire Date Thrive assessed: 05/03/23 I am a: Patient What is your living situation today?: I have a steady place to live Within the past 12 months, did the food you bought not last and you didn't have the money to get more?: Never true Within the past 12 months, did you worry whether your food would run out before you got money to buy more?: Never true Do you have trouble paying for medicines?: No Do you have trouble getting transportation to medical appointments?: No Do you have trouble paying your heating and electricity bill?: No Do you have trouble taking care of your child, family member or friend?: No Do you have trouble with day-to-day activities such as bathing, preparing meals, shopping, managing finances, etc.?: No Are you currently unemployed and looking for a job?: No Are you interested in more education?: No Please select the resources that you would like help with: None THRIVE Score: 0 AUDIT C Alcohol Use Questionnaire (AUDIT-C) 1. How often do you have a drink containing alcohol?: Monthly or less 2. How many drinks containing alcohol do you have on a typical day when you are drinking?: 1 or 2 3. How often do you have six or more drinks on one occasion?: Never Total Score: 1 JOCELYN-7 AMB Questionnaire JOCELYN-7 Date JOCELYN - 7 assessed: 05/03/23 Feeling nervous, anxious, or on edge: 0 = Not at all Not being able to stop or control worryin = Not at all Worrying too much about different things: 0 = Not at all Trouble relaxin = Not at all Being so restless that it is hard to sit still: 0 = Not at all Becoming easily annoyed or irritable: 0 = Not at all Feeling afraid as if something awful might happen: 0 = Not at all Total JOCELYN-7 score (0-4 normal; 5-9 mild; 10-14 moderate; 15-21 severe): 0 Source: Developed by Drs. Pavan Thomas, Leanne Sam, Mathew Wray and colleagues, with an educational mario from [employer]. Physical exam (Primary Care) Vital Signs: Last Vital Signs Pulse 64 05/03/23 09:45 BP 138/82 05/03/23 09:45 Pulse Ox 96 05/03/23 09:45 Oxygen Delivery Method Room Air 05/03/23 09:45 BMI result Body Mass Index 29.7 Tobacco/Smoking Status: Tobacco use Status Tobacco use date assessed 05/03/23 05/03/23 09:50 Patient Tobacco Use Status Never used Tobacco 05/03/23 09:50 e-Cigarette/Vaping Use Never Used 05/03/23 09:50 PHQ-9: PHQ-9 Score PHQ-9: Total score 0 05/03/23 09:50 Depression Screening Interpretation: Negative Thrive Assessment: Date of Thrive Assessment Date Thrive assessed 05/03/23 05/03/23 09:50 Const General: alert; No acute distress Eyes Conjunctivae: conjunctivae normal Resp Auscultation: clear to auscultation bilaterally Cardio Rate: regular rate Rhythm: regular rhythm GI Inspection: Yes normal to inspection Extrem General: Yes normal to inspection and No edema Assessment and Plan Assessment & Plan (1) Overweight (BMI 25.0-29.9): Code(s): E66.3 - Overweight Plan: Continue with diet and exercise (2) Hyperlipidemia: Code(s): E78.5 - Hyperlipidemia, unspecified Qualifiers: Hyperlipidemia type: mixed hyperlipidemia Qualified Code(s): E78.2 - Mixed hyperlipidemia Plan: Avoid fried foods, chicken skin, eggs, butter margarine, pastries and meat. Be it pork or beef they have a lot of cholesterol LDL goal of less than 130 and triglyceride of less than 150. (3) GERD (gastroesophageal reflux disease): Code(s): K21.9 - Gastro-esophageal reflux disease without esophagitis Qualifiers: Esophagitis presence: without esophagitis Qualified Code(s): K21.9 - Gastro-esophageal reflux disease without esophagitis Plan: Avoid the foods that causes that usually spicy foods, tomato products, juices, coffee, soda and foods that your sensitive to. After eating do not lie down, allow 3-4 hours before in lie down. And keep the head of bed above 30 degrees to avoid the acid from going up. (4) Asthma: Comment: PFT 2011 Code(s): J45.909 - Unspecified asthma, uncomplicated Qualifiers: Asthma severity: mild Asthma persistence: intermittent Asthma complication type: uncomplicated Qualified Code(s): J45.20 - Mild intermittent asthma, uncomplicated Orders: Orders Comprehensive Met. Panel 3 Months E78.2 - Mixed hyperlipidemia Lipid Panel 3 Months E78.00 - Pure hypercholesterolemia, unspecified, E78.2 - Mixed hyperlipidemia Medications: New fluticasone propionate 110 mcg/actuation 2 inhalations inhalation BID 12 grams 12RF J45.20 - Mild intermittent asthma, uncomplicated Changed From atorvastatin 40 mg PO BEDTIME 90 tabs 1RF E78.2 - Mixed hyperlipidemia To atorvastatin 80 mg PO BEDTIME 90 days 90 tabs 3RF E78.2 - Mixed hyperlipidemia Refilled albuterol sulfate 90 mcg/actuation (Ventolin HFA) 2 puffs inhalation Q6H PRN 8.5 grams 0RF shortness of breath or wheezing J45.20 - Mild intermittent asthma, uncomplicated zolpidem 10 mg PO BEDTIME PRN 30 tabs 1RF sleep G47.00 - Insomnia, unspecified meloxicam 15 mg PO DAILY 90 tabs 1RF M79.641 - Pain in right hand, M79.642 - Pain in left hand Discontinued albuterol sulfate 90 mcg/actuation (Proventil HFA) Discontinued Reason: Doctor's Order 2 puffs inhalation Q4-6H PRN 8.5 grams 0RF Shortness Of Breath J45.20 - Mild intermittent asthma, uncomplicated, J45.909 - Unspecified asthma, uncomplicated Coding Level of Care Code Est Pt Level 4 (66313) Diagnoses Overweight (BMI 25.0-29.9) E66.3 Mixed hyperlipidemia E78.2 Hyperlipidemia type: mixed hyperlipidemia Gastroesophageal reflux disease without esophagitis K21.9 Esophagitis presence: without esophagitis Mild intermittent asthma without complication J45.20 Asthma severity: mild Asthma persistence: intermittent Asthma complication type: uncomplicated Additional Codes PHQ-9 - 12843 - PHQ-9 Billing: ([id number])
== END 2023-05-03 10:31 | disposition home or self-care (01) ==
PROVIDERS: PCP Internal Medicine; Visit Provider Internal Medicine
DX: E66.3 Overweight (principal); E78.2 Mixed hyperlipidemia; K21.9 Gastro-esophageal reflux disease without esophagitis; J45.20 Mild intermittent asthma, uncomplicated
CPT/HCPCS: 99214

== ENCOUNTER 2023-05-13 14:14 | Outpatient (AMB) | payer OTHER, SELFPAY ==
--- NOTE | 2023-05-13 14:21 | MHC.PC.OV ---
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 Allergies No Known Allergies [No Known Allergies*] Allergy (Verified 05/13/23 14:22) Medication List - Last Reconciled 05/13/23 by Brain Robertson MD albuterol sulfate 90 mcg/actuation (Ventolin HFA) 2 puffs inhalation Q6H PRN atorvastatin 80 mg PO BEDTIME 90 days cyanocobalamin (vitamin B-12) 1,000 mcg PO DAILY docusate sodium (Colace) 100 mg PO DAILY fenofibrate 160 mg PO DAILY fluticasone propionate 110 mcg/actuation 2 inhalations inhalation BID meloxicam 15 mg PO DAILY zolpidem 10 mg PO BEDTIME PRN Tobacco use date assessed: 05/03/23 Fall risk assessment: No Falls in past year Last assessed Fall Risk: 05/13/23 Dental Screening Dental Screen Date: 05/13/23 Did you have a dental visit in the last 12 months?: Yes Did you have a dental problem in the last 6 months where you did not have access to dental care?: No Was dental information given to patient?: Patient has dentist HPI pe HPI Details 63-year-old obese male with asthma hypercholesterolemia GERD coming in for physical exam. Last seen in April 2023. Patient is here for physical exam.occ dizzy, PFSH Medical History (Updated 05/13/23 @ 14:46 by Brain Robertson MD) Insomnia SOB (shortness of breath) on exertion Bilateral hand numbness Hard of hearing Obesity (BMI 30-39.9) BPH (benign prostatic hyperplasia) Vitamin D deficiency Hyperlipidemia Alcohol abuse Anxiety and depression Fatty liver Asthma Anemia GERD (gastroesophageal reflux disease) Surgical History History of thumb surgery History of deviated nasal septum Family History Father Medical history unknown Mother No problems noted. Sister Heart attack Other Breast cancer Social History (Updated 05/13/23 @ 14:43 by Brain Robertson MD) Housing: Apartment Alcohol intake: current Alcohol intake frequency: holidays/special occasions only Alcohol type: beer and wine Comment: once a week 6-8 glasses Patient Tobacco Use Status: Never used Tobacco e-Cigarette/Vaping Use: Never Used Second Hand Smoke Exposure: No service: No Current occupational status: unemployed Cognitive needs: No Hearing needs: No Vision needs: No Questionnaire Thrive Questionnaire Date Thrive assessed: 05/03/23 JOCELYN-7 AMB Questionnaire JOCELYN-7 Date JOCELYN - 7 assessed: 05/03/23 Source: Developed by Drs. Pavan Thomas, Leanne Sam, Mathew Wray and colleagues, with an educational mario from [employer]. Review of Systems Const Denies poor appetite and Denies weakness Eyes Denies no additional complaints ENT Reports Normal hearing present, Denies dizziness, Denies nasal congestion, Denies tinnitus and Denies sore throat Card Denies chest pain, Denies syncope, Denies rapid heart rate and Denies dyspnea Resp Denies cough and Denies dyspnea GI Denies change in stool character, Reports constipation, Denies diarrhea, Denies nausea and Denies vomiting Denies dysuria and Denies urinary frequency Neuro Reports Normal hearing present, Denies confusion, Denies dizziness, Denies syncope and Denies weakness Psych Denies confusion Physical exam (Primary Care) Vital Signs: Last Vital Signs Pulse 67 05/13/23 14:22 BP 148/90 H 05/13/23 14:22 Pulse Ox 96 05/13/23 14:22 Oxygen Delivery Method Room Air 05/13/23 14:22 BMI result Body Mass Index 30.7 Tobacco/Smoking Status: Tobacco use Status Tobacco use date assessed 05/03/23 05/13/23 14:22 Patient Tobacco Use Status Never used Tobacco 05/13/23 14:22 e-Cigarette/Vaping Use Never Used 05/13/23 14:22 Thrive Assessment: Date of Thrive Assessment Date Thrive assessed 05/03/23 05/13/23 14:22 Const General: No confusion Orientation/consciousness: No confusion HENMT Head: Yes normocephalic Ears: external ears normal and TM's normal bilaterally Face and sinus: Yes normal facial exam Mouth: moist mucous membranes Throat: Yes tonsils normal Eyes Conjunctivae: conjunctivae normal Pupils: Equal, round and reactive pupils present and Pupil accommodation reflex normal Direct Ophthalmoscopy: normal light reflex Neck Neck: No lymphadenopathy Thyroid: Thyroid normal Chest Chest palpation & inspection: normal inspection of the chest Resp Effort & Inspection: normal respiratory effort and no audible wheezes Auscultation: clear to auscultation bilaterally, no crackles, no wheezes and lung sounds not diminished Cardio Rate: regular rate Rhythm: regular rhythm Peripheral pulses: radial pulses present and dorsalis pedis present GI Palpation (GI): no masses Auscultation: normal bowel sounds and normoactive bowel sounds Rectal Exam - Male: Yes deferred Skin General skin exam: no rashes or lesions noted Rashes: no rashes Neuro General: No confusion Cranial nerves: Yes Equal, round and reactive pupils present and Yes Normal hearing present Cognition (Neuro): normal cognition Gait exam (Neuro): Normal gait present Motor exam (neuro): 5/5 motor strength present throughout Deep tendon reflexes (DTR's): Right brachioradialis reflex intensity grade: 2+, Left brachioradialis reflex intensity grade: 2+, Right patellar reflex intensity grade: 2+ and Left patellar reflex intensity grade: 2+ Extrem General: No edema Assessment and Plan Assessment & Plan (1) Annual physical exam: Code(s): Z00.00 - Encounter for general adult medical examination without abnormal findings (2) Impaired fasting blood sugar: Code(s): R73.01 - Impaired fasting glucose Plan: Decrease the amount of carbohydrate intake, pasta, bread, rice and potatoes are all sugar and that is aside from all the sweet stuff, remember that fruits are good but they are Sweet also. (3) Obesity (BMI 30-39.9): Code(s): E66.9 - Obesity, unspecified Plan: Diet and exercise (4) Hyperlipidemia: Code(s): E78.5 - Hyperlipidemia, unspecified Qualifiers: Hyperlipidemia type: mixed hyperlipidemia Qualified Code(s): E78.2 - Mixed hyperlipidemia Plan: Avoid fried foods, chicken skin, eggs, butter margarine, pastries and meat. Be it pork or beef they have a lot of cholesterol LDL goal of less than 130 and triglyceride of less than 150 presently on fenofibrate (5) Asthma: Comment: PFT 2011 Code(s): J45.909 - Unspecified asthma, uncomplicated Qualifiers: Asthma severity: mild Asthma persistence: intermittent Asthma complication type: uncomplicated Qualified Code(s): J45.20 - Mild intermittent asthma, uncomplicated Plan: Continue with the inhaler as needed (6) GERD (gastroesophageal reflux disease): Code(s): K21.9 - Gastro-esophageal reflux disease without esophagitis Qualifiers: Esophagitis presence: without esophagitis Qualified Code(s): K21.9 - Gastro-esophageal reflux disease without esophagitis Plan: Avoid the foods that causes that usually spicy foods, tomato products, juices, coffee, soda and foods that your sensitive to. After eating do not lie down, allow 3-4 hours before in lie down. And keep the head of bed above 30 degrees to avoid the acid from going up. (7) Blood pressure elevated without history of HTN: Code(s): R03.0 - Elevated blood-pressure reading, without diagnosis of hypertension Plan: monitor the BP (8) Colon cancer screening: Code(s): Z12.11 - Encounter for screening for malignant neoplasm of colon Orders: Referrals Gastroenterology Referral Z12.11 - Encounter for screening for malignant neoplasm of colon Medications: Refilled cyanocobalamin (vitamin B-12) 1,000 mcg PO DAILY 90 caps 3RF E53.8 - Deficiency of other specified B group vitamins Coding Level of Care Code Est Pt Prev Care >65y(84415) Diagnoses Annual physical exam Z00.00 Impaired fasting blood sugar R73.01 Obesity (BMI 30-39.9) E66.9 Mixed hyperlipidemia E78.2 Hyperlipidemia type: mixed hyperlipidemia Mild intermittent asthma without complication J45.20 Asthma severity: mild Asthma persistence: intermittent Asthma complication type: uncomplicated Gastroesophageal reflux disease without esophagitis K21.9 Esophagitis presence: without esophagitis Blood pressure elevated without history of HTN R03.0 Colon cancer screening Z12.11
[2023-05-13 14:22] VITALS: BP 148/90; PULSE 67; O2SAT 96; BMI 30.7
[2023-05-13 14:35] VITALS: BP 146/80
== END 2023-05-13 15:07 | disposition home or self-care (01) ==
PROVIDERS: Visit Provider Internal Medicine
DX: Z00.00 Encounter for general adult medical examination without abnormal findings (principal); R73.01 Impaired fasting glucose; E66.9 Obesity, unspecified; Z68.30 Body mass index [BMI] 30.0-30.9, adult; E78.2 Mixed hyperlipidemia; J45.20 Mild intermittent asthma, uncomplicated; K21.9 Gastro-esophageal reflux disease without esophagitis; R03.0 Elevated blood-pressure reading, without diagnosis of hypertension; Z12.11 Encounter for screening for malignant neoplasm of colon
CPT/HCPCS: 99397

== ENCOUNTER 2023-08-14 09:52 | Outpatient (AMB) | payer MEDICARE, MEDICAID, SELFPAY ==
[2023-08-14 10:00] VITALS: BP 148/92; PULSE 80; O2SAT 98
--- NOTE | 2023-08-14 10:00 | A.OFFPC_ITS ---
Vital Signs 08/14/23 10:00 Height 5 ft 6 in Weight 186 lb BMI 30.0 BP 148/92 H Blood Pressure Location Lt brachial Position Sitting Pulse 80 Pulse Source Pulse Oximeter Pulse Oximetry (%) 98 Oxygen Delivery Method Room Air Intake Visit Reasons: asthma, cholesterol, insomnia, BP elevated Allergies No Known Allergies [No Known Allergies*] Allergy (Verified 08/14/23 10:00) Medication List - Last Reconciled 08/14/23 by Brain Robertson MD albuterol sulfate 90 mcg/actuation (Ventolin HFA) 2 puffs inhalation Q6H PRN atorvastatin 80 mg PO BEDTIME 90 days cyanocobalamin (vitamin B-12) 1,000 mcg PO DAILY docusate sodium (Colace) 100 mg PO DAILY fenofibrate 160 mg PO DAILY fluticasone propionate 110 mcg/actuation 2 inhalations inhalation BID lisinopril-hydrochlorothiazide 10-12.5 mg 1 tab PO DAILY meloxicam 15 mg PO DAILY zolpidem 10 mg PO BEDTIME PRN Tobacco use date assessed: 05/03/23 Fall risk assessment: No Falls in past year Last assessed Fall Risk: 08/14/23 Dental Screening Dental Screen Date: 05/13/23 HPI asthma, cholesterol, insomnia, BP elevated HPI Details 63-year-old obese male with impaired glu cose tolerance hypercholesterolemia asthma GERD last seen in 05/29/2023 patient is due for colonoscopy and was reminded about this noted also to have an elevated blood pressure. Patient is here for follow-up. colon test September 2023 [facility] Medical History (Updated 08/14/23 @ 10:26 by Brain Robertson MD) Insomnia SOB (shortness of breath) on exertion Bilateral hand numbness Hard of hearing Obesity (BMI 30-39.9) BPH (benign prostatic hyperplasia) Vitamin D deficiency Hyperlipidemia Alcohol abuse Anxiety and depression Fatty liver Asthma Anemia GERD (gastroesophageal reflux disease) Surgical History History of thumb surgery History of deviated nasal septum Family History Father Medical history unknown Mother No problems noted. Sister Heart attack Other Breast cancer Social History (Updated 05/13/23 @ 14:43 by Brain Robertson MD) Housing: Apartment Alcohol intake: current Alcohol intake frequency: holidays/special occasions only Alcohol type: beer and wine Comment: once a week 6-8 glasses Patient Tobacco Use Status: Never used Tobacco e-Cigarette/Vaping Use: Never Used Second Hand Smoke Exposure: No service: No Current occupational status: unemployed Cognitive needs: No Hearing needs: No Vision needs: No Questionnaire PHQ-9 Over the last 2 weeks, how often have you been bothered by any of the following problems? 1. Little interest or pleasure in doing things: not at all 2. Feeling down, depressed, or hopeless: not at all 3. Trouble falling or staying asleep, or sleeping too much: not at all 4. Feeling tired or having little energy: not at all 5. Poor appetite or overeating: not at all 6. Feeling bad about yourself - or that you are a failure or have let yourself or your family down: not at all 7. Trouble concentrating on things, such as reading the newspaper or watching television: not at all 8. Moving or speaking so slowly that other people could have noticed. Or the opposite - being so fidgety or restless that you have been moving around a lot more than usual: not at all 9. Thoughts that you would be better off or of hurting yourself in some way: not at all Total score: 0 Depression Screening Interpretation: Negative Depression Screening Done: Yes Source: Developed by Drs. Pavan Thomas, Leanne Sam, Mathew Wray and colleagues, with an educational mario from [employer]. Thrive Questionnaire Date Thrive assessed: 05/03/23 AUDIT C Alcohol Use Questionnaire (AUDIT-C) 1. How often do you have a drink containing alcohol?: Monthly or less 2. How many drinks containing alcohol do you have on a typical day when you are drinking?: 1 or 2 3. How often do you have six or more drinks on one occasion?: Never Total Score: 1 JOCELYN-7 AMB Questionnaire JOCELYN-7 Date JOCELYN - 7 assessed: 05/03/23 Source: Developed by Drs. Pavan Thomas, Leanne Sam, Mathew Wray and colleagues, with an educational mario from [employer]. Physical exam (Primary Care) Vital Signs: Last Vital Signs Pulse 80 08/14/23 10:00 BP 148/92 H 08/14/23 10:00 Pulse Ox 98 08/14/23 10:00 Oxygen Delivery Method Room Air 08/14/23 10:00 BMI result Body Mass Index 30.0 Tobacco/Smoking Status: Tobacco use Status Tobacco use date assessed 05/03/23 08/14/23 10:06 Patient Tobacco Use Status Never used Tobacco 08/14/23 10:06 e-Cigarette/Vaping Use Never Used 08/14/23 10:06 PHQ-9: PHQ-9 Score PHQ-9: Total score 0 08/14/23 10:06 Depression Screening Interpretation: Negative Thrive Assessment: Date of Thrive Assessment Date Thrive assessed 05/03/23 08/14/23 10:06 Const General: alert; No acute distress Eyes Conjunctivae: conjunctivae normal Resp Auscultation: clear to auscultation bilaterally Cardio Rate: regular rate Rhythm: regular rhythm GI Inspection: Yes normal to inspection Extrem General: Yes normal to inspection and No edema Assessment and Plan Assessment & Plan (1) Colon cancer screening: Code(s): Z12.11 - Encounter for screening for malignant neoplasm of colon Plan: Patient is reminded about colonoscopy (2) Blood pressure elevated without history of HTN: Code(s): R03.0 - Elevated blood-pressure reading, without diagnosis of hypertension Plan: Patient is advised to have low salt diet (3) Obesity (BMI 30-39.9): Code(s): E66.9 - Obesity, unspecified Plan: Diet and exercise (4) Hyperlipidemia: Code(s): E78.5 - Hyperlipidemia, unspecified Qualifiers: Hyperlipidemia type: mixed hyperlipidemia Qualified Code(s): E78.2 - Mixed hyperlipidemia Plan: Avoid fried foods, chicken skin, eggs, butter margarine, pastries and meat. Be it pork or beef they have a lot of cholesterol LDL goal of less than 130 and triglyceride of less than 150 on fenofibrate 160 mg once a day and atorvastatin 80 mg once a day (5) Asthma: Comment: PFT 2011 Code(s): J45.909 - Unspecified asthma, uncomplicated Qualifiers: Asthma severity: mild Asthma persistence: intermittent Asthma complication type: uncomplicated Qualified Code(s): J45.20 - Mild intermittent asthma, uncomplicated Plan: Albuterol inhaler and Flovent. (6) GERD (gastroesophageal reflux disease): Code(s): K21.9 - Gastro-esophageal reflux disease without esophagitis Qualifiers: Esophagitis presence: without esophagitis Qualified Code(s): K21.9 - Gastro-esophageal reflux disease without esophagitis Plan: Avoid the foods that causes that usually spicy foods, tomato products, juices, coffee, soda and foods that your sensitive to. After eating do not lie down, allow 3-4 hours before in lie down. And keep the head of bed above 30 degrees to avoid the acid from going up. (7) Impaired fasting blood sugar: Code(s): R73.01 - Impaired fasting glucose Plan: Decrease the amount of carbohydrate intake, pasta, bread, rice and potatoes are all sugar and that is aside from all the sweet stuff, remember that fruits are good but they are Sweet also. (8) Hypertension: Code(s): I10 - Essential (primary) hypertension Orders: Orders Comprehensive Met. Panel Today I10 - Essential (primary) hypertension Medications: New lisinopril-hydrochlorothiazide 10-12.5 mg 1 tab PO DAILY 30 tabs 2RF I10 - Essential (primary) hypertension Coding Level of Care Code Est Pt Level 4 (53736) Complex EM visit Add On G2211 Diagnoses Colon cancer screening Z12.11 Blood pressure elevated without history of HTN R03.0 Obesity (BMI 30-39.9) E66.9 Mixed hyperlipidemia E78.2 Hyperlipidemia type: mixed hyperlipidemia Mild intermittent asthma without complication J45.20 Asthma severity: mild Asthma persistence: intermittent Asthma complication type: uncomplicated Gastroesophageal reflux disease without esophagitis K21.9 Esophagitis presence: without esophagitis Impaired fasting blood sugar R73.01 Hypertension I10 Additional Codes PHQ-9 - 72643 - PHQ-9 Billing: ([id number])
== END 2023-08-14 10:35 | disposition home or self-care (01) ==
PROVIDERS: PCP Internal Medicine; Visit Provider Internal Medicine
DX: R03.0 Elevated blood-pressure reading, without diagnosis of hypertension (principal); Z68.30 Body mass index [BMI] 30.0-30.9, adult; E66.9 Obesity, unspecified; Z12.11 Encounter for screening for malignant neoplasm of colon; E78.2 Mixed hyperlipidemia; J45.20 Mild intermittent asthma, uncomplicated; K21.9 Gastro-esophageal reflux disease without esophagitis; R73.01 Impaired fasting glucose; I10 Essential (primary) hypertension
CPT/HCPCS: 99214; G2211

== ENCOUNTER 2023-10-08 07:47 | Outpatient (REF) | payer MEDICARE, MEDICAID, SELFPAY ==
[2023-10-08 09:16] LABS: Alanine Aminotransferase 22 U/L (0-40); Albumin Level 4.5 g/dL (3.5-5.0); Alkaline Phosphatase 41 U/L (39-117); Anion Gap 14 (12-20); Aspartate Amino Transferase 15 U/L (5-37); Bilirubin Total 0.7 mg/dL (0.0-1.0); Blood Urea Nitrogen 20 mg/dL (9-16); Calcium 9.8 mg/dL (8.4-10.2); Carbon Dioxide 26 mmol/L (22-29); Chloride 103 mmol/L (96-108); Cholesterol 184 mg/dL (<200); Estimated Glomerular Filt Rate > 60; Glucose Random 98 mg/dL (60-115); HDL Cholesterol 42 mg/dL (>40); LDL Cholesterol Calculated 111 mg/dL (<100); Potassium 3.5 mmol/L (3.3-5.1); Sodium 139 mmol/L (135-145); Total Protein 7.5 g/dL (6.5-8.0); Triglycerides 158 mg/dL (<150)
== END 2023-10-08 07:48 | disposition home or self-care (01) ==
LOC: HO.LAB 07:47
PROVIDERS: PCP Internal Medicine; Visit Provider Internal Medicine
DX: E78.00 Pure hypercholesterolemia, unspecified (principal); I10 Essential (primary) hypertension; E78.2 Mixed hyperlipidemia
CPT/HCPCS: 36415; 80053; 80061

== ENCOUNTER 2023-10-24 10:07 | Outpatient (AMB) | payer OTHER, SELFPAY ==
--- NOTE | 2023-10-24 10:09 | MHC.PC.OV ---
Vital Signs 10/24/23 10:10 10/24/23 10:22 Height 5 ft 6 in Weight 184 lb BMI 29.7 BP 144/82 H 130/70 Blood Pressure Location Lt brachial Lt brachial Position Sitting Sitting Pulse 80 Pulse Source Pulse Oximeter Pulse Oximetry (%) 93 Oxygen Delivery Method Room Air Intake Visit Reasons: HTN, cholesterol Restaurant Front Manager Required: Yes Restaurant Front Manager Name: Leeroy [id number] Allergies No Known Allergies [No Known Allergies*] Allergy (Verified 10/24/23 10:10) Tobacco use date assessed: 05/03/23 Fall risk assessment: 1 Fall in past year Last assessed Fall Risk: 10/24/23 Dental Screening Dental Screen Date: 05/13/23 HPI HTN, cholesterol HPI Details 63-year-old overweight male with hypercholesterolemia asthma GERD impaired glucose tolerance and hypertension last seen in August 2023. Patient's colonoscopy was last done in September 2013 and has been referred to Gastroenterology. SHAKILA ELI [id number]. BP now is good with the BP med. GI has contacted november [facility] Medical History (Updated 10/24/23 @ 10:18 by Brain Robertson MD) Blood pressure elevated without history of HTN Insomnia SOB (shortness of breath) on exertion Bilateral hand numbness Hard of hearing Obesity (BMI 30-39.9) BPH (benign prostatic hyperplasia) Vitamin D deficiency Hyperlipidemia Alcohol abuse Anxiety and depression Fatty liver Asthma Anemia GERD (gastroesophageal reflux disease) Surgical History History of thumb surgery History of deviated nasal septum Family History Father Medical history unknown Mother No problems noted. Sister Heart attack Other Breast cancer Social History (Updated 05/13/23 @ 14:43 by Brain Robertson MD) Housing: Apartment Alcohol intake: current Alcohol intake frequency: holidays/special occasions only Alcohol type: beer and wine Comment: once a week 6-8 glasses Patient Tobacco Use Status: Never used Tobacco Tobacco use type: Cigarette e-Cigarette/Vaping Use: Never Used Second Hand Smoke Exposure: No service: No Current occupational status: unemployed Cognitive needs: No Hearing needs: No Vision needs: Yes Questionnaire PHQ-9 Over the last 2 weeks, how often have you been bothered by any of the following problems? 1. Little interest or pleasure in doing things: not at all 2. Feeling down, depressed, or hopeless: not at all 3. Trouble falling or staying asleep, or sleeping too much: not at all 4. Feeling tired or having little energy: not at all 5. Poor appetite or overeating: not at all 6. Feeling bad about yourself - or that you are a failure or have let yourself or your family down: not at all 7. Trouble concentrating on things, such as reading the newspaper or watching television: not at all 8. Moving or speaking so slowly that other people could have noticed. Or the opposite - being so fidgety or restless that you have been moving around a lot more than usual: not at all 9. Thoughts that you would be better off or of hurting yourself in some way: not at all Total score: 0 Depression Screening Interpretation: Negative Depression Screening Done: Yes Source: Developed by Drs. Pavan Thomas, Leanne Sam, Mathew Wray and colleagues, with an educational mario from [employer]. Thrive Questionnaire Date Thrive assessed: 05/03/23 AUDIT C Alcohol Use Questionnaire (AUDIT-C) 1. How often do you have a drink containing alcohol?: Monthly or less 2. How many drinks containing alcohol do you have on a typical day when you are drinking?: 1 or 2 3. How often do you have six or more drinks on one occasion?: Never Total Score: 1 JOCELYN-7 AMB Questionnaire JOCELYN-7 Date JOCELYN - 7 assessed: 05/03/23 Source: Developed by Drs. Pavan Thomas, Leanne Sam, Mathew Wray and colleagues, with an educational mario from [employer]. Physical exam (Primary Care) Vital Signs: Oxygen Delivery Method Room Air 10/24/23 10:10 BMI result Body Mass Index 29.7 Tobacco/Smoking Status: Tobacco use Status Tobacco use date assessed 05/03/23 10/24/23 10:09 Patient Tobacco Use Status Never used Tobacco 10/24/23 10:09 Tobacco use type Cigarette 10/24/23 10:12 e-Cigarette/Vaping Use Never Used 10/24/23 10:09 PHQ-9: PHQ-9 Score PHQ-9: Total score 0 10/24/23 10:12 Depression Screening Interpretation: Negative Thrive Assessment: Date of Thrive Assessment Date Thrive assessed 05/03/23 10/24/23 10:09 Const General: alert; No acute distress Eyes Conjunctivae: conjunctivae normal Resp Auscultation: clear to auscultation bilaterally Cardio Rate: regular rate Rhythm: regular rhythm GI Inspection: Yes normal to inspection Extrem General: Yes normal to inspection and No edema Assessment and Plan Assessment & Plan (1) Colon cancer screening: Code(s): Z12.11 - Encounter for screening for malignant neoplasm of colon Plan: Patient is reminded about colonoscopy (2) Overweight (BMI 25.0-29.9): Code(s): E66.3 - Overweight Plan: Diet and exercise (3) Hyperlipidemia: Code(s): E78.5 - Hyperlipidemia, unspecified Qualifiers: Hyperlipidemia type: mixed hyperlipidemia Qualified Code(s): E78.2 - Mixed hyperlipidemia Plan: Avoid fried foods, chicken skin, eggs, butter margarine, pastries and meat. Be it pork or beef they have a lot of cholesterol on atorvastatin 80 mg once a day and fenofibrate 160 mg once a day (4) GERD (gastroesophageal reflux disease): Code(s): K21.9 - Gastro-esophageal reflux disease without esophagitis Qualifiers: Esophagitis presence: without esophagitis Qualified Code(s): K21.9 - Gastro-esophageal reflux disease without esophagitis Plan: Avoid the foods that causes that usually spicy foods, tomato products, juices, coffee, soda and foods that your sensitive to. After eating do not lie down, allow 3-4 hours before in lie down. And keep the head of bed above 30 degrees to avoid the acid from going up. (5) Asthma: Comment: PFT 2011 Code(s): J45.909 - Unspecified asthma, uncomplicated Qualifiers: Asthma complication type: uncomplicated Asthma persistence: intermittent Asthma severity: mild Qualified Code(s): J45.20 - Mild intermittent asthma, uncomplicated Plan: Continue with albuterol inhaler and Flovent. (6) Hypertension: Code(s): I10 - Essential (primary) hypertension Plan: Continue with blood pressure medication. Decrease salt intake and exercise patient takes lisinopril hydrochlorothiazide 10/12.5 mg once a day (7) Constipation: Code(s): K59.00 - Constipation, unspecified Plan: increade oral fluids, eat more fiber and exercises Medications: New sennosides-docusate sodium 8.6-50 mg (Senna Plus) 2 tab-caps (2 x 8.6-50 mg) PO BEDTIME 60 caps 3RF K59.00 - Constipation, unspecified Discontinued docusate sodium (Colace) Discontinued Reason: Doctor's Order 100 mg PO DAILY 90 caps 3RF K59.00 - Constipation, unspecified Coding Level of Care Code Est Pt Level 4 (37786) Diagnoses Colon cancer screening Z12.11 Overweight (BMI 25.0-29.9) E66.3 Mixed hyperlipidemia E78.2 Hyperlipidemia type: mixed hyperlipidemia Gastroesophageal reflux disease without esophagitis K21.9 Esophagitis presence: without esophagitis Mild intermittent asthma without complication J45.20 Asthma complication type: uncomplicated Asthma persistence: intermittent Asthma severity: mild Hypertension I10 Constipation K59.00 Additional Codes PHQ-9 - 00589 - PHQ-9 Billing: ([id number])
[2023-10-24 10:10] VITALS: BP 144/82; PULSE 80; O2SAT 93; BMI 29.7
[2023-10-24 10:22] VITALS: BP 130/70
== END 2023-10-24 10:33 | disposition home or self-care (01) ==
PROVIDERS: PCP Internal Medicine; Visit Provider Internal Medicine
DX: E78.2 Mixed hyperlipidemia (principal); K21.9 Gastro-esophageal reflux disease without esophagitis; J45.20 Mild intermittent asthma, uncomplicated; I10 Essential (primary) hypertension; Z12.11 Encounter for screening for malignant neoplasm of colon; E66.3 Overweight; K59.00 Constipation, unspecified
CPT/HCPCS: 99214

== ENCOUNTER 2023-12-17 08:54 | Day surgery (SDC) | payer OTHER, SELFPAY ==
[2023-12-13 13:22] VITALS: BMI 29.1
--- NOTE | 2023-12-16 09:37 | HO.ANESPROP2 ---
Documented by User: Nohemy Aguilar NP 12/16/23 09:38 HPI - Anesthesia Eval Consult details Narrative: 63yo M for Colonoscopy PMFSH Active Problems Active Problems: All Active Problems Hypertension (Acute) Colon cancer screening (Acute) Overweight (BMI 25.0-29.9) (Acute) Insomnia (Acute) Hip pain, left (Acute) Sexually transmitted disease exposure (Acute) Peripheral arterial disease (Acute) Knee pain, bilateral (Acute) Hearing deficit (Acute) Annual physical exam (Acute) Impaired fasting blood sugar (Acute) Carpal tunnel syndrome of right wrist (Acute) Vitamin B12 deficiency (Acute) Right leg numbness (Acute) Anemia (Acute) Constipation (Acute) Osteoarthritis (Acute) Annual physical exam (Acute) Low back pain (Acute) Bilateral hand pain (Acute) Obesity (BMI 30-39.9) (Acute) Hyperlipidemia (Acute) Asthma (Acute) GERD (gastroesophageal reflux disease) (Acute) Past Medical History Medical History Blood pressure elevated without history of HTN Insomnia SOB (shortness of breath) on exertion Bilateral hand numbness Hard of hearing Obesity (BMI 30-39.9) BPH (benign prostatic hyperplasia) Vitamin D deficiency Hyperlipidemia Alcohol abuse Anxiety and depression Fatty liver Asthma Anemia GERD (gastroesophageal reflux disease) Family History Family History Father Medical history unknown Mother No problems noted. Sister Heart attack Other Breast cancer Surgical History Surgical History History of thumb surgery History of deviated nasal septum Social History Social History Housing: Apartment Are you a primary personal care worker to a significant other at home: No Do you presently have visiting nurse or other home services: No Alcohol intake: current Alcohol intake frequency: a few times a month Alcohol type: beer and wine Comment: once a week 6-8 glasses Patient Tobacco Use Status: Never used Tobacco Tobacco use type: Cigarette e-Cigarette/Vaping Use: Never Used Second Hand Smoke Exposure: No Use of substances other than those prescribed or required for medical reasons: No Have you been hit, kicked, punched, or otherwise hurt by someone within the past year? If so, by whom?: No Are you DNR?: No Advance Directives: No Advance Directives Information Provided: Yes Recently lost weight without trying: No service: No Current occupational status: unemployed Cognitive needs: No Hearing needs: No Vision needs: Yes Meds Allergies Allergy/AdvReac Type Severity Reaction Status Date / Time No Known Allergies Allergy Verified 10/24/23 10:10 [No Known Allergies*] Exam Height,Weight and Vital Signs: Height 5 ft 7 in Weight 84.141 kg Assessment and Plan Assessment Anesthesia Assessment: Chart Reviewed Documented by User: Cait Larose MD 12/17/23 11:00 [facility] Past Medical History Medical History Blood pressure elevated without history of HTN Insomnia SOB (shortness of breath) on exertion Bilateral hand numbness Hard of hearing Obesity (BMI 30-39.9) BPH (benign prostatic hyperplasia) Vitamin D deficiency Hyperlipidemia Alcohol abuse Anxiety and depression Fatty liver Asthma Anemia GERD (gastroesophageal reflux disease) Family History Family History Father Medical history unknown Mother No problems noted. Sister Heart attack Other Breast cancer Family history of problems with anesthesia: No Surgical History Surgical History History of thumb surgery History of deviated nasal septum History of Problems with Anesthesia: No Social History Social History Housing: Apartment Are you a primary personal care worker to a significant other at home: No Do you presently have visiting nurse or other home services: No Alcohol intake: current Alcohol intake frequency: a few times a month Alcohol type: beer and wine Comment: once a week 6-8 glasses Patient Tobacco Use Status: Never used Tobacco Tobacco use type: Cigarette e-Cigarette/Vaping Use: Never Used Second Hand Smoke Exposure: No Use of substances other than those prescribed or required for medical reasons: No Have you been hit, kicked, punched, or otherwise hurt by someone within the past year? If so, by whom?: No Are you DNR?: No Advance Directives: No Advance Directives Information Provided: Yes Recently lost weight without trying: No service: No Current occupational status: unemployed Cognitive needs: No Hearing needs: No Vision needs: Yes Meds Allergies Allergy/AdvReac Type Severity Reaction Status Date / Time No Known Allergies Allergy Verified 10/24/23 10:10 [No Known Allergies*] Exam Airway Mallampati Class: III TM Dist: <=3cm Neck ROM: Full Heart: rrr Lungs: cta Assessment and Plan Assessment Anesthesia Assessment: Anesthesia Plan Discussed Final Anesthetic Review Family History of Problems with Anesthesia: No History of Problems with Anesthesia: No NPO: Yes ASA Class: III Final Preanesthetic Review: No Changes in Pt Med Stat, Meds/Allgs Chart Reviewed, Consent Obtained/Reviewed and Anes Risks/Benef Reviewed Patient Risk: Intermediate Procedure Risk: Low Anesthetic Plan Anesthetic Plan: MAC: Disposition: Standard PACU
--- OUTSIDE RECORDS SUMMARY | 2023-12-17 08:56 | XMS_ITS | Continuity of Care Document ---
Author Organization [facility] Address [address] [place] [address]- Care Team Providers Care Liquor Grinding Mill Operator Name Role Phone Brain Robertson MD Primary Care Physician [place] [facility] [place]16[place]22 - 11/21/[address] [id number] Attending Physician: Brain Robertson MD Admitting Physician: Brain Robertson MD Patient Care team information Care Team Personnel Name: Brain Robertson MD Position: Reference Physician Member Role: PCP Address: Address: [address] [place] [id number] Care Team Related Persons Name: YANNICK LEWIS
--- OUTSIDE RECORDS SUMMARY | 2023-12-17 08:56 | XMS_ITS | Continuity of Care Document ---
Author Organization [facility] Address [address] [place] [address]- Care Team Providers Care Installer Apprentice Name Role Phone Brain Robertson MD Primary Care Physician [place] [facility] [place] - 03/01/[address] [address]- Attending Physician: Lora Jones Admitting Physician: Lora Jones Referring Physician: Admtr ArAnastasiya Patient Care team information Care Team Personnel Name: Brain Robertson MD Position: Reference Physician Member Role: PCP Address: Address: [address] [place] [address]- Care Team Related Persons Name: YANNICK LEWIS
[2023-12-17 10:05] VITALS: BMI 29.3
[2023-12-17] MEDS: Lactated Ringers 1,000 ML 100 ML IVCONT (10:23)
[2023-12-17 10:35] VITALS: PULSE 54; RESP 16; O2SAT 98
[2023-12-17] MEDS: Albuterol Sulfate (0.083%) 2.5 MG/3 ML VIAL.NEB INHALE (10:35)
--- NOTE | 2023-12-17 11:08 | MHC.SHP ---
Pre-Procedural Eval Section A - 24 Hr Update-Section A only Date of Service: 12/17/23 The patient is an INPATIENT: No Changes since office visit: No Cold of Flu in the past 2 weeks, No New Medical Problems, No Changes in Medication and No Patient answered all questions The patient has been examined within 24 hours of the surgical procedure. The History & Physical has been completed within 30 days and I have reviewed it.: Yes Section B - Complete if H&P > 30 days Chief Complaint: Encounter for screening for malignant neoplasm of Allergies: Allergies Allergy/AdvReac Type Severity Reaction Status Date / Time No Known Allergies Allergy Verified 10/24/23 10:10 [No Known Allergies*] Plan I have reviewed the history and physical and performed a pertinent physical examination on my patient. No changes have occurred unless specified. Time Spent With Patient Time: Total time managing care of this patient today ____ minutes.
[2023-12-17 11:36] VITALS: BP 108/64; PULSE 69; RESP 16; TEMP 37; O2SAT 93
[2023-12-17 11:51] VITALS: BP 136/81; PULSE 67; RESP 16; TEMP 37; O2SAT 96
--- NOTE | 2023-12-17 12:05 | OP_ITS ---
DATE OF SERVICE: 12/17/2023 SURGEON: Samy Munoz MD INDICATIONS: Colon cancer screening. PREOPERATIVE DIAGNOSIS: POSTOPERATIVE DIAGNOSIS: PROCEDURE PERFORMED: Colonoscopy to the terminal ileum. ESTIMATED BLOOD LOSS: COMPLICATIONS: ANESTHESIA: Monitored anesthesia care. ASSISTANTS: SPECIMENS: DESCRIPTION OF PROCEDURE: A history and physical performed. The risks and benefits of the procedure were explained to the patient and informed consent was obtained. The patient was placed in the left lateral decubitus position. A digital rectal exam was performed and was found to be normal. The Olympus pediatric video colonoscope was introduced into the rectum and advanced to the cecum. The cecum was identified by transillumination, palpation, and identification of ileocecal valve. Examination was performed. The scope was removed. He tolerated the procedure well and was returned to recovery area in stable condition. FINDINGS: The terminal ileum was normal. The visualized colonic mucosa was normal. The quality of prep was fair with a large amount of undigested food material limiting the sensitivity examination for detection of small polyps. This was washed and suctioned as best possible. No polyps were identified. There was mild sigmoid diverticulosis. Retroflexed examination showed moderate-sized internal hemorrhoids. IMPRESSION: Limited examination. RECOMMENDATION: Repeat colonoscopy in 6 to 12 months due to limitations of todays exam. MD SHELDON Castro/STUART / [id number] MTDD
[2023-12-17 12:06] VITALS: BP 128/77; PULSE 61; RESP 16; TEMP 37; O2SAT 95
== END 2023-12-17 12:32 | disposition home or self-care (01) ==
PROVIDERS: PCP Internal Medicine; Visit Provider Internal Medicine Gastroenterology
PROC: 0DJD8ZZ Inspection of Lower Intestinal Tract, Via Natural or Artificial Opening Endoscopic (ICD-10-PCS; CPT 45378; principal; 2023-12-17 10:50)
DX: Z12.11 Encounter for screening for malignant neoplasm of colon (principal); K57.30 Diverticulosis of large intestine without perforation or abscess without bleeding; K64.8 Other hemorrhoids; K59.00 Constipation, unspecified; K21.9 Gastro-esophageal reflux disease without esophagitis; K76.0 Fatty (change of) liver, not elsewhere classified; N40.0 Benign prostatic hyperplasia without lower urinary tract symptoms; E78.5 Hyperlipidemia, unspecified; J45.909 Unspecified asthma, uncomplicated; H91.90 Unspecified hearing loss, unspecified ear; E55.9 Vitamin D deficiency, unspecified; F41.8 Other specified anxiety disorders; Z79.899 Other long term (current) drug therapy; Z79.1 Long term (current) use of non-steroidal anti-inflammatories (NSAID)
CPT/HCPCS: G0121; 94640; J2003; J2704

== ENCOUNTER 2024-05-05 07:11 | Day surgery (SDC) | payer OTHER, SELFPAY ==
[2024-05-01 13:40] VITALS: BMI 28.2
--- OUTSIDE RECORDS SUMMARY | 2024-05-04 16:39 | XMS_ITS ---
Author Organization [facility] Address [address] [place] [address] Care Team Providers Care Certified Alcohol Drug Counselor Name Role Phone Brain Robertson MD Primary Care Provider Samy Garcia Jr Unavailable REASON FOR VISIT screening Encounters Encounter Location Date Provider Diagnosis [facility] [place] Out[place] [address] [place] [id number] 12/17/2023 Samy Munoz Jr Colon cancer screening Z12.11 ASSESSMENTS Encounter Date Diagnosis Assessment Notes Treatment Notes Treatment Clinical Notes 12/17/2023 Colon cancer screening (ICD-10 - Z12.11) PLAN OF TREATMENT Next Appt Details Provider Name:Samy concepcion Jr, 05/05/2024 07:30:00 AM, [address] [place] [address], [phone],
--- OUTSIDE RECORDS SUMMARY | 2024-05-04 16:40 | XMS_ITS ---
Author Organization [facility] Address [address] [place] [address] Care Team Providers Care Toll Collector Name Role Phone Brain Robertson MD Primary Care Provider Samy Garcia Jr Unavailable ALLERGIES No Known Allergies REASON FOR VISIT Patient presents today for a screening colonoscopy MEDICATIONS Medication SIG (Take, Route, Frequency, Duration) Notes Start Date End Date Status Senexon-S 8.6-50 MG Oral for 30 Active Meloxicam 15 MG TOME SEBASTIAN TABLETA TOD OS LOS D Oral for 30 Active Fluticasone Propionate HFA 110 MCG/ACT INHALE 2 PUFFS 2 TIMES A DAY Inhalation for 30 Active Albuterol Sulfate HFA 108 (90 Base) MCG/ACT TOME DOS INHALACIONES POR V A ORAL CADA SEIS HORAS CUANDO SEA NECESARIO Inhalation for 25 Active Atorvastatin Calcium 80 MG TOME SEBASTIAN TABL ETA TODOS LOS D AL ACOSTARSE POR 90 SILVA Oral for 90 Active Fenofibrate 160 MG Oral for 30 Active Zolpidem Tartrate 10 MG Oral for 30 Active Lisinopril-hydroCHLOROthia zide 10-12.5 MG Oral for 30 Active Simvastatin 20 MG TAKE 1 TABLET BY CAROLYNN TH EVERY DAY AT BEDTIME Oral for 30 Active SOCIAL HISTORY Sex Assigned At : Social History Observation Description Sex Assigned At Unknown Alcohol Screen Question Answer Notes Did you have a drink contain ing alcohol in the past year? Yes How often did you have a dri nk containing alcohol in the past year? 2 to 4 times a month (2 points) How many drinks did you have on a typical day when you were drinking in the past year? 7 to 9 drinks (3 points) How often did you have 6 or more drinks on one occasion in the past year? Weekly (3 points) Points 8 Interpretation Positive PROBLEMS Problem Type ICD Code Onset Dates Problem Status W/U Status Risk SNOMED Code Notes Problem Special screening for malignant neoplasms, colon (Z12.11) Active confirmed 026698239 Problem Constipation, unspecified constipation type (K59.00) Active confirmed 34498617 Problem Encounter for long-term (current) use of NSAIDs (Z79.1) Active confirmed 925569627626139 VITAL SIGNS Temperature 98.4 degrees Fahrenheit 11/18/19 24 Blood pressure systolic 000 mm Hg 11/18/19 24 Blood pressure diastolic 00 mm Hg 024 Height 67 in 11/18/2023 Weight 185 lb 8 oz lbs 11/18/2023 BMI 29.05 kg/m2 11/18/2023 Encounters Encounter Location Date Provider Diagnosis [facility] [address] [place] [address] 11/18/2023 Samy Munoz Jr Special screening for malignant neoplasms, colon Z12.11 ; Constipation, unspecified constipation type K59.00 and Encounter for long-term (current) use of NSAIDs Z79.1 ASSESSMENTS Encounter Date Diagnosis Assessment Notes Treatment Notes Treatment Clinical Notes 11/18/2023 Special screening for malignant neoplasms, colon (ICD-10 - Z12.11) 11/18/2023 Constipation, unspecified constipation type (ICD-10 - K59.00) 11/18/2023 Encounter for long-term (current) use of NSAIDs (ICD-10 - Z79.1) PLAN OF TREATMENT Future Test Test Name Order Date COLONOSCOPY 11/18/2023 Next Appt Details Follow Up: 1 Year, Reason: Provider Name:Samy concepcion Jr, 05/05/2024 07:30:00 AM, [address] [place] [address] , [place], [place], [phone], Progress Notes * Examination Category Sub-Category Detail Notes General Examination GENERAL APPEARANCE: in no ac fernando distress HEAD: normocephalic EYES: sclera non-icteric NECK/THYROID: no lymphadenopathy HEART: S1, S2 normal, no mu rmurs CHEST: normal shape and exp ansion LUNGS: clear to auscultatio n bilaterally ABDOMEN: soft, nontender, non distended, bowel sounds present, no organomegaly SKIN: anicteric EXTREMITIES: no clubbing, cyanosi s, or edema PSYCH: cognitive function i ntact ORAL CAVITY: mucosa moist
--- OUTSIDE RECORDS SUMMARY | 2024-05-04 16:40 | XMS_ITS ---
Author Organization [facility] Address [address] [place] [address] Care Team Providers Care Rabbet Operator Name Role Phone Brain Robertson MD Primary Care Provider Samy Garcia Jr Unavailable ALLERGIES No Known Allergies REASON FOR VISIT Patient presents today for a screening colon/to be repeated MEDICATIONS Medication SIG (Take, Route, Frequency, Duration) Notes Start Date End Date Status MiraLax (colon prep) 17 GM/SCOOP mixed with Gatorade or Crystal Light Orally begin at 5:00 p.m. the day before the procedure for 1 day 03/12/2024 Active Senexon-S 8.6-50 MG Oral for 30 Active [...] POR 90 SILVA Oral for 90 Active Simvastatin 20 MG TAKE 1 TABLET BY CAROLYNN TH EVERY DAY AT BEDTIME Oral for 30 Active Fenofibrate 160 MG Oral for 30 Active Zolpidem Tartrate 10 MG Oral for 30 Active Lisinopril-hydroCHLOROthia zide 10-12.5 MG Oral for 30 Active IMMUNIZATIONS Vaccine Route Administration Date Status Comme nts Influenza Unknown 03/09/2024 Refused SOCIAL HISTORY Sex Assigned At : Social [...] Weekly (3 points) Points 8 Interpretation Positive VITAL SIGNS Temperature 97.6 degrees Fahrenheit 03/09/20 24 Blood pressure systolic 000 mm Hg 03/09/20 24 Blood pressure diastolic 00 mm Hg 024 Height 67 in 03/09/2024 Weight 180 lbs 03/09/2024 BMI 28.19 kg/m2 03/09/2024 Encounters Encounter Location Date Provider Diagnosis [facility] [address] [place] [phone] 03/09/2024 Samy Munoz Jr Special screening for malignant neoplasms, colon Z12.11 and Encounter for long-term (current) use of NSAIDs Z79.1 ASSESSMENTS Encounter Date Diagnosis Assessment Notes Treatment Notes Treatment Clinical Notes 03/09/2024 Special screening for malignant neoplasms, colon (ICD-10 - Z12.11) Colonoscopy material was printed 03/09/2024 Encounter for long-term (current) use of NSAIDs (ICD-10 - Z79.1) 03/09/2024 Other Colonoscopy material was printed PLAN OF TREATMENT Medication Medication Name Sig Start Date Stop Date Notes MiraLax (colon prep) 17 GM/SCOOP mixed with Gatorade or Crystal Light Orally begin at 5:00 p.m. the day before the procedure for 1 day 03/12/2024 Treatment Notes Assessment Notes Special screening for malignant neoplasm s, colon Colonoscopy material was printed Other Colonoscopy material was printed Future Test Test Name Order Date COLONOSCOPY 03/12/2024 Next Appt Details Follow Up: 1 Year, Reason: Provider Name:Samy concepcion Jr, 05/05/2024 07:30:00 AM, [address] [place] [address] , [place], [place], [phone],
--- OUTSIDE RECORDS SUMMARY | 2024-05-04 16:40 | XMS_ITS | Patient Health Record ---
Author Organization [facility] Address [address] [place] [address] Care Team Providers Care Services Engineer Name Role Phone Brain Robertson MD Primary Care Provider Samy Garcia Jr Unavailable [phone] ALLERGIES No Known Allergies REASON FOR REFERRAL No Information MEDICATIONS Medication SIG (Take, Route, Frequency, Duration) Notes Start Date End Date Status Atorvastatin Calcium 80 MG TOME SEBASTIAN TABL ETA TODOS LOS D AL ACOSTARSE POR 90 SILVA Oral for 90 Active MiraLax (colon prep) 17 GM/SCOOP mixed with [...] CUANDO SEA NECESARIO Inhalation for 25 Active Simvastatin 20 MG TAKE 1 TABLET BY CAROLYNN TH EVERY DAY AT BEDTIME Oral for 30 Active Fenofibrate 160 MG Oral for 30 Active Zolpidem Tartrate 10 MG Oral for 30 Active Lisinopril-hydroCHLOROthia zide 10-12.5 MG Oral for 30 Active IMMUNIZATIONS Vaccine Route Administration Date Status Comme nts Influenza Unknown 01/29/2023 Administered Influenza Unknown 03/09/2024 Refused SOCIAL HISTORY Sex [...] for malignant neoplasms, colon (Z12.11) Active confirmed 381832431 Problem Encounter for long-term (current) use of NSAIDs (Z79.1) Active confirmed [id number] Problem Constipation, unspecified constipation type (K59.00) Active confirmed 49637672 VITAL SIGNS Temperature 97.6 degrees Fahrenheit 03/09/2024 Blood pressure diastolic 00 mm Hg 03/09/2024 Height 67 in 03/09/2024 Blood pressure systolic 000 mm Hg 03/09/2024 Weight 180 lbs 03/09/2024 BMI 28.19 kg/m2 03/09/2024 Encounters Encounter Location Date Provider Diagnosis [facility] [address] [place] [phone] 09/09/2023 Samy Munoz Jr [facility] [place] [address] [place] [phone] 12/17/2023 Samy Munoz Jr Colon cancer screening Z12.11 [facility] [address] [address] 11/18/2023 Samy Munoz Jr Special screening for malignant neoplasms, colon Z12.11 ; Constipation, unspecified constipation type K59.00 and Encounter for long-term (current) use of NSAIDs Z79.1 [facility] [address] [place] [address] 03/09/2024 Samy Munoz Jr Special screening for malignant neoplasms, colon Z12.11 and Encounter for long-term (current) use of NSAIDs Z79.1 [facility] [address] [address] 07/29/2023 Samy Munoz Jr [facility] [address] [address] 07/30/2023 Samy Munoz Jr ASSESSMENTS Encounter Date Diagnosis Assessment Notes Treatment Notes Treatment Clinical Notes 12/17/2023 Colon cancer screening (ICD-10 - Z12.11) 11/18/2023 Special screening for malignant neoplasms, colon (ICD-10 - Z12.11) 11/18/2023 Constipation, unspecified constipation type (ICD-10 - K59.00) 03/09/2024 Special screening for malignant neoplasms, colon (ICD-10 - Z12.11) Colonoscopy material was printed 03/09/2024 Encounter for long-term (current) use of NSAIDs (ICD-10 - Z79.1) 11/18/2023 Encounter for long-term (current) use of NSAIDs (ICD-10 - Z79.1) 03/09/2024 Other Colonoscopy material was printed PLAN OF TREATMENT Future Test Test Name Order Date COLONOSCOPY 09/09/2013 COLONOSCOPY 11/18/2023 COLONOSCOPY 03/12/2024 Next Appt Details Provider Name:Samy concepcion Jr, 05/05/2024 07:30:00 AM, [address] [place] [address] , [place], [place], [phone], Insurance Providers Payer Name Payer Address Payer Phone Subscriber Number Group Number Insured Name Patient Relationship to Insured Coverage Start Date Coverage End Date [facility] [address] Attn Claims ISAIAS Yi [id number] KELSEY LEWIS Self - patient is the insured MEDICAL (GENERAL) HISTORY Medical History History ICD Code Hyperlipidemia Gastroesophageal reflux disease BPH Asthma Hearing impairment Elevated BMI Vitamin D deficiency Anxiety/depression Fatty liver disease Surgical History Surgery Date(Month/Year)
[2024-05-05] MEDS: Lactated Ringers 1,000 ML 80 ML IVCONT (07:35)
[2024-05-05 07:42] VITALS: BP 154/89; PULSE 64; RESP 18; TEMP 36.7; O2SAT 96
[2024-05-05 07:44] VITALS: BMI 28.3
--- NOTE | 2024-05-05 08:28 | MHC.SHP ---
Pre-Procedural Eval Section A - 24 Hr Update-Section A only Date of Service: 05/05/24 Section B - Complete if H&P > 30 days Chief Complaint: screening Details of Present Illness: see H&P no changes Relevant Family History (Specify if Yes): No Relevant Social History: None Present Medications: see Short Stay Collaborative assessment Medical History: No relevant PMH History of Previous Operations: No relevant previous surgery Allergies: Allergies Allergy/AdvReac Type Severity Reaction Status Date / Time No Known Allergies Allergy Verified 10/24/23 10:10 [No Known Allergies*] Review of Systems Sugical H&P ROS: Negative: Constitution, Cardiovascular, Respiratory, Neurological, Psychiatric, Hem-Onc, Allergic/Immunologic, Gastrointestinal, Genitourinary, Musculoskeletal, Integumentary, Endocrine and Eyes/Ears/Nose/Throat Exam Surgical H&P Exam: Normal: HEENT, Normal: Heart, Normal: Lungs, Normal: Extremities, Normal: Abdomen, Normal: Skin and Normal: Neurological Plan Diagnosis/Plan: Unchanged I have reviewed the history and physical and performed a pertinent physical examination on my patient. No changes have occurred unless specified. Time Spent With Patient Time: Total time managing care of this patient today ____ minutes.
--- NOTE | 2024-05-05 08:43 | HO.ANESPROP2 ---
HPI - Anesthesia Eval Consult details Narrative: 64 M for colonoscopy [facility] Active Problems Active Problems: All Active Problems Hypertension (Acute) Colon cancer screening (Acute) Overweight (BMI 25.0-29.9) (Acute) Hip pain, left (Acute) Sexually transmitted disease exposure (Acute) Peripheral arterial disease (Acute) Knee pain, bilateral (Acute) Hearing deficit (Acute) Annual physical exam (Acute) Impaired fasting blood sugar (Acute) Carpal tunnel syndrome of right wrist (Acute) Vitamin B12 deficiency (Acute) Right leg numbness (Acute) Anemia (Acute) Constipation (Acute) Osteoarthritis (Acute) Annual physical exam (Acute) Low back pain (Acute) Bilateral hand pain (Acute) Insomnia (Acute) Obesity (BMI 30-39.9) (Acute) Hyperlipidemia (Acute) Asthma (Acute) GERD (gastroesophageal reflux disease) (Acute) Past Medical History Medical History Blood pressure elevated without history of HTN SOB (shortness of breath) on exertion Insomnia Bilateral hand numbness Hard of hearing Obesity (BMI 30-39.9) BPH (benign prostatic hyperplasia) Vitamin D deficiency Hyperlipidemia Alcohol abuse Anxiety and depression Fatty liver Asthma Anemia GERD (gastroesophageal reflux disease) Family History Family History Father Medical history unknown Mother No problems noted. Sister Heart attack Other Breast cancer Family history of problems with anesthesia: No Surgical History Surgical History (Updated 05/01/24 @ 13:40 by Ariela Hughes RN) H/O colonoscopy History of thumb surgery History of deviated nasal septum History of Problems with Anesthesia: No Social History Social History Housing: Apartment Are you a primary care nurse rn to a significant other at home: No Do you presently have visiting nurse or other home services: No Alcohol intake: current Alcohol intake frequency: a few times a month Alcohol type: beer and wine Comment: once a week 6-8 glasses Patient Tobacco Use Status: Never used Tobacco Tobacco use type: Cigarette e-Cigarette/Vaping Use: Never Used Second Hand Smoke Exposure: No Have you been hit, kicked, punched, or otherwise hurt by someone within the past year? If so, by whom?: No Are you DNR?: No Advance Directives: No Advance Directives Information Provided: Yes Recently lost weight without trying: No Nutrition Risks: No Nutritional Risk service: No Current occupational status: unemployed Cognitive needs: No Hearing needs: No Vision needs: Yes Meds Allergies Allergy/AdvReac Type Severity Reaction Status Date / Time No Known Allergies Allergy Verified 10/24/23 10:10 [No Known Allergies*] Active Medications: Current Medications Lactated Ringer's (Lr) 1,000 mls @ 80 mls/hr IVCONT .[id number] LEIGHA Last Admin: 05/05/24 07:35 Dose: 80 mls/hr Exam Height,Weight and Vital Signs: Height 5 ft 7 in Weight 181 lb Last Vital Signs Temp 98.0 F 05/05/24 07:42 Pulse 64 05/05/24 07:42 Resp 18 05/05/24 07:42 BP 154/89 H 05/05/24 07:42 Pulse Ox 96 05/05/24 07:42 O2 Del Method Room Air 05/05/24 07:42 Airway Mallampati Class: II TM Dist: >3cm Neck ROM: Full Partial: Upper Assessment and Plan Assessment Anesthesia Assessment: Anesthesia Plan Discussed and Chart Reviewed Final Anesthetic Review Family History of Problems with Anesthesia: No History of Problems with Anesthesia: No NPO: Yes ASA Class: II Final Preanesthetic Review: No Changes in Pt Med Stat, Meds/Allgs Chart Reviewed, Consent Obtained/Reviewed and Anes Risks/Benef Reviewed Patient Risk: Low Procedure Risk: Low Anesthetic Plan Anesthetic Plan: MAC: Disposition: Standard PACU
[2024-05-05 09:07] VITALS: BP 111/69; PULSE 68; RESP 20; TEMP 37; O2SAT 95
[2024-05-05 09:23] VITALS: BP 107/69; PULSE 54; RESP 16; TEMP 36.3; O2SAT 96
--- NOTE | 2024-05-05 09:41 | OP_ITS ---
DATE OF SERVICE: 05/05/2024 SURGEON: Samy Munoz MD INDICATIONS: Incomplete examination due to poor prep on 01/01, colon cancer screening. PREOPERATIVE DIAGNOSIS: POSTOPERATIVE DIAGNOSIS: PROCEDURE PERFORMED: Colonoscopy to the terminal ileum with snare polypectomy and biopsy. ESTIMATED BLOOD LOSS: COMPLICATIONS: ANESTHESIA: Monitored anesthesia care. ASSISTANTS: SPECIMENS: DESCRIPTION OF PROCEDURE: A history and physical were performed. The risks and benefits of the procedure were explained to the patient and informed consent was obtained. The patient was placed in the left lateral decubitus position. A digital rectal exam was performed and was found to be normal. The Olympus pediatric videocolonoscope was introduced into the rectum and advanced to the cecum. The cecum was identified by transillumination, palpation, and identification of ileocecal valve. Examination was performed. The scope was removed. He tolerated the procedure well and was taken to recovery area in stable condition. FINDINGS: The terminal ileum was examined and appeared normal. The visualized colonic mucosa was normal. The quality of the prep was good. Four polyps were identified and removed using a biopsy forceps and snare polypectomy with cold snare. All were less than 10 mm. These were located at 80 cm, 75 cm, 40 cm and in the rectum. Retroflexed examination showed moderate-sized internal hemorrhoids. IMPRESSION: Colon polyps. RECOMMENDATION: Follow up with the biopsy results. MD SHELDON Castro/STUART / [id number]
== END 2024-05-05 09:50 | disposition home or self-care (01) ==
PROVIDERS: PCP Internal Medicine; Visit Provider Internal Medicine Gastroenterology
PROC: 0DJD8ZZ Inspection of Lower Intestinal Tract, Via Natural or Artificial Opening Endoscopic (ICD-10-PCS; CPT 45378; principal; 2024-05-05 08:20)
DX: Z12.11 Encounter for screening for malignant neoplasm of colon (principal); D12.4 Benign neoplasm of descending colon; K63.5 Polyp of colon; K62.1 Rectal polyp; K64.8 Other hemorrhoids; K21.9 Gastro-esophageal reflux disease without esophagitis; K76.0 Fatty (change of) liver, not elsewhere classified; N40.0 Benign prostatic hyperplasia without lower urinary tract symptoms; E78.5 Hyperlipidemia, unspecified; J45.909 Unspecified asthma, uncomplicated; H91.90 Unspecified hearing loss, unspecified ear; E55.9 Vitamin D deficiency, unspecified; F41.8 Other specified anxiety disorders; Z79.1 Long term (current) use of non-steroidal anti-inflammatories (NSAID); Z79.51 Long term (current) use of inhaled steroids; Z79.899 Other long term (current) drug therapy
CPT/HCPCS: 45385; 45380; 88300; 88305; J2003; J2704

== ENCOUNTER 2024-05-22 09:30 | Outpatient (REF) | payer OTHER, SELFPAY ==
--- NOTE | ~2024-05-22 | XR_ITS ---
EXAMINATION: XR CHEST CLINICAL INFORMATION: J45.20 - Mild intermittent asthma, uncomplicated COMPARISON: 05/16/2022. TECHNIQUE: 2 views of the chest were obtained. FINDINGS: The cardiac, hilar, and mediastinal contours are normal. The lungs are clear bilaterally. There is no pneumothorax or pleural effusion. There is no focal osseous or soft tissue abnormality. XR/XR chest 2V IMPRESSION: Normal chest. Electronically signed by: Riki aHnna MD 05/22/2024 01:07 PM EDT
== END 2024-05-22 09:31 | disposition home or self-care (01) ==
LOC: HO.XRAY 09:30
PROVIDERS: PCP Internal Medicine; Visit Provider Internal Medicine
DX: Z00.00 Encounter for general adult medical examination without abnormal findings (principal); Z23 Encounter for immunization; J45.20 Mild intermittent asthma, uncomplicated; E78.2 Mixed hyperlipidemia; K21.9 Gastro-esophageal reflux disease without esophagitis; D64.9 Anemia, unspecified; I10 Essential (primary) hypertension; E66.3 Overweight; G47.00 Insomnia, unspecified; K59.00 Constipation, unspecified; F41.1 Generalized anxiety disorder
CPT/HCPCS: 71046; 90471; 90656; 96127; 99397

== ENCOUNTER 2024-05-22 09:30 | Outpatient (AMB) | payer OTHER, SELFPAY ==
--- NOTE | 2024-05-22 09:51 | A.OFFPC_ITS ---
Vital Signs 05/22/24 09:52 Height 5 ft 7 in Weight 182 lb 4 oz BMI 28.5 BP 110/74 Blood Pressure Location Lt brachial Position Sitting Pulse 62 Pulse Source Pulse Oximeter Temp 97.8 F Temp Source Temporal Artery Scan Pulse Oximetry (%) 94 Oxygen Delivery Method Room Air Intake Visit Reasons: annual exam Intake Note: Patient is here today for a physical. Toxicology Teacher Required: Yes Toxicology Teacher Language: Hand Compositor Name: Tennille (friend) Information Interpreted: non-clinical & clinical (pt decline production control specialist service, prefer friend to translate) Board Filler: Present Accompanied by: Friend Allergies No Known Allergies [No Known Allergies*] Allergy (Verified 05/22/24 09:52) Medication List - Last Reconciled 05/22/24 by Brain Robertson MD albuterol sulfate 90 mcg/actuation (Ventolin HFA) 2 puffs inhalation Q6H PRN atorvastatin 80 mg PO BEDTIME 90 days fenofibrate 160 mg PO DAILY fluticasone propionate 110 mcg/actuation 2 inhalations inhalation BID lisinopril-hydrochlorothiazide 10-12.5 mg 1 tab PO DAILY meloxicam 15 mg PO DAILY sennosides-docusate sodium 8.6-50 mg (Senna Plus) 2 tab-caps (2 x 8.6-50 mg) PO BEDTIME Tobacco use date assessed: 05/22/24 Fall risk assessment: No Falls in past year Last assessed Fall Risk: 05/22/24 Dental Screening Dental Screen Date: 05/22/24 Did you have a dental visit in the last 12 months?: Yes Did you have a dental problem in the last 6 months where you did not have access to dental care?: No Was dental information given to patient?: Patient has dentist HPI annual exam HPI Details frind interpreting tunisian. zolpidem not working [facility] Medical History (Updated 05/22/24 @ 11:05 by Brain Robertson MD) Colon cancer screening Blood pressure elevated without history of HTN SOB (shortness of breath) on exertion Insomnia Bilateral hand numbness Hard of hearing Obesity (BMI 30-39.9) BPH (benign prostatic hyperplasia) Vitamin D deficiency Hyperlipidemia Alcohol abuse Anxiety and depression Fatty liver Asthma Anemia GERD (gastroesophageal reflux disease) Surgical History H/O colonoscopy History of thumb surgery History of deviated nasal septum Family History Father Medical history unknown Mother No problems noted. Sister Heart attack Other Breast cancer Social History Housing: Apartment Are you a primary women's health care nurse practitioner to a significant other at home: No Do you presently have visiting nurse or other home services: No Alcohol intake: current Alcohol intake frequency: a few times a month Alcohol type: beer and wine Comment: once a week 6-8 glasses Patient Tobacco Use Status: Never used Tobacco Tobacco use type: Cigarette e-Cigarette/Vaping Use: Never Used Second Hand Smoke Exposure: No service: No Current occupational status: unemployed Cognitive needs: Yes (Cane) Hearing needs: No Vision needs: Yes Questionnaire PHQ-9 Over the last 2 weeks, how often have you been bothered by any of the following problems? 1. Little interest or pleasure in doing things: not at all 2. Feeling down, depressed, or hopeless: not at all 3. Trouble falling or staying asleep, or sleeping too much: not at all 4. Feeling tired or having little energy: not at all 5. Poor appetite or overeating: not at all 6. Feeling bad about yourself - or that you are a failure or have let yourself or your family down: not at all 7. Trouble concentrating on things, such as reading the newspaper or watching television: not at all 8. Moving or speaking so slowly that other people could have noticed. Or the opposite - being so fidgety or restless that you have been moving around a lot more than usual: not at all 9. Thoughts that you would be better off or of hurting yourself in some way: not at all Total score: 0 Depression Screening Interpretation: Negative Depression Screening Done: Yes Source: Developed by Drs. Pavan Thomas, Leanne Sam, Mathew Wray and colleagues, with an educational mario from [employer]. Thrive Questionnaire Date Thrive assessed: 05/22/24 I am a: Patient What is your living situation today?: I have a steady place to live Within the past 12 months, did the food you bought not last and you didn't have the money to get more?: Never true Within the past 12 months, did you worry whether your food would run out before you got money to buy more?: Never true Do you have trouble paying for medicines?: No Do you have trouble getting transportation to medical appointments?: No Do you have trouble paying your heating and electricity bill?: No Do you have trouble taking care of your child, family member or friend?: No Do you have trouble with day-to-day activities such as bathing, preparing meals, shopping, managing finances, etc.?: No Are you currently unemployed and looking for a job?: No Are you interested in more education?: No Please select the resources that you would like help with: None Currently or been in a relationship where the following occur: No concerns reported THRIVE Score: 0 AUDIT C Alcohol Use Questionnaire (AUDIT-C) 1. How often do you have a drink containing alcohol?: Monthly or less 2. How many drinks containing alcohol do you have on a typical day when you are drinking?: 1 or 2 Total Score: 1 JOCELYN-7 AMB Questionnaire JOCELYN-7 Date JOCELYN - 7 assessed: 05/22/24 Feeling nervous, anxious, or on edge: 1 = Several days Not being able to stop or control worryin = Several days Worrying too much about different things: 1 = Several days Trouble relaxin = Not at all Being so restless that it is hard to sit still: 0 = Not at all Becoming easily annoyed or irritable: 0 = Not at all Feeling afraid as if something awful might happen: 1 = Several days Total JOCELYN-7 score (0-4 normal; 5-9 mild; 10-14 moderate; 15-21 severe): 4 Source: Developed by Drs. Pavan Thomas, Leanne Sam, Mathew Wray and colleagues, with an educational mario from [employer]. Review of Systems Const Denies poor appetite and Denies weakness Eyes Denies no additional complaints ENT Reports Normal hearing present, Denies dizziness, Denies nasal congestion, Denies tinnitus and Denies sore throat Card Denies chest pain, Denies syncope, Denies rapid heart rate and Denies dyspnea Resp Denies cough and Denies dyspnea GI Denies change in stool character, Reports constipation, Denies diarrhea, Denies nausea and Denies vomiting Denies dysuria and Denies urinary frequency Neuro Reports Normal hearing present, Denies confusion, Denies dizziness, Denies syncope and Denies weakness Psych Denies confusion Physical exam (Primary Care) Vital Signs: Last Vital Signs Temp 97.8 F 05/22/24 09:52 Pulse 62 05/22/24 09:52 BP 110/74 05/22/24 09:52 Pulse Ox 94 05/22/24 09:52 Oxygen Delivery Method Room Air 05/22/24 09:52 BMI result Body Mass Index 28.5 Tobacco/Smoking Status: Tobacco use Status Tobacco use date assessed 05/22/24 05/22/24 09:59 Patient Tobacco Use Status Never used Tobacco 05/22/24 09:51 Tobacco use type Cigarette 05/22/24 09:51 e-Cigarette/Vaping Use Never Used 05/22/24 09:51 PHQ-9: PHQ-9 Score PHQ-9: Total score 0 05/22/24 11:15 Depression Screening Interpretation: Negative Thrive Assessment: Date of Thrive Assessment Date Thrive assessed 05/22/24 05/22/24 09:59 Currently or been in a relationship where the following occur: No concerns reported Const General: No confusion Orientation/consciousness: No confusion HENMT Head: Yes normocephalic Ears: external ears normal and TM's normal bilaterally Face and sinus: Yes normal facial exam Mouth: moist mucous membranes Throat: Yes tonsils normal Eyes Conjunctivae: conjunctivae normal Pupils: Equal, round and reactive pupils present and Pupil accommodation reflex normal Direct Ophthalmoscopy: normal light reflex Neck Neck: No lymphadenopathy Thyroid: Thyroid normal Chest Chest palpation & inspection: normal inspection of the chest Resp Effort & Inspection: normal respiratory effort and no audible wheezes Auscultation: clear to auscultation bilaterally, no crackles, no wheezes and lung sounds not diminished Cardio Rate: regular rate Rhythm: regular rhythm Peripheral pulses: radial pulses present and dorsalis pedis present GI Other: colon test just done Palpation (GI): no masses Auscultation: normal bowel sounds and normoactive bowel sounds Rectal Exam - Male: Yes deferred Male General Exam: Yes normal external exam Skin General skin exam: no rashes or lesions noted Rashes: no rashes Neuro General: No confusion Cranial nerves: Yes Equal, round and reactive pupils present and Yes Normal hearing present Cognition (Neuro): normal cognition Gait exam (Neuro): Normal gait present Motor exam (neuro): 5/5 motor strength present throughout Deep tendon reflexes (DTR's): Right brachioradialis reflex intensity grade: 2+, Left brachioradialis reflex intensity grade: 2+, Right patellar reflex intensity grade: 2+ and Left patellar reflex intensity grade: 2+ Extrem General: No edema Office Procedures Flu Questionnaire Does the patient have a severe egg allergy?: No Does the patient have severe life threatening allergies?: No Does the patient have a fever or illness today?: No Has the patient ever had Guillain-[place] Syndrome?: No Has the patient ever had any past reaction to a flu shot?: No Immunizations Fluarix Triv 4231-0448 (PF) 45 mcg (15 mcg x 3)/0.5 mL IM syringe Performing Provider: Brain Robertson MD Performing [facility] [place] [facility] Administered by: Ashley Wilder CMA on 05/22/24 11:15 Dose Route Admin Location Dispensed Lot Number Expiration Date NDC Real Property Appraiser 0.5 mL IM Left Deltoid 0.5 mL [id number] 09/07/24 [id number] [employer] VIS Given Date VIS Provided VIS Publication Date 05/22/24 Single Vaccine 20 Eligibility Eligibility Date Funding Source Not [facility] Eligible 05/22/24 Private Coding Level of Care Code Est Pt Prev Care >65y(24314) Diagnoses Annual physical exam Z00.00 Mild intermittent asthma without complication J45.20 Asthma complication type: uncomplicated Asthma persistence: intermittent Asthma severity: mild Mixed hyperlipidemia E78.2 Hyperlipidemia type: mixed hyperlipidemia Gastroesophageal reflux disease without esophagitis K21.9 Esophagitis presence: without esophagitis Anemia D64.9 Hypertension I10 Overweight (BMI 25.0-29.9) E66.3 Insomnia G47.00 Constipation K59.00 Generalized anxiety disorder F41.1 Assessment & Plan Assessment & Plan (1) Annual physical exam: Code(s): Z00.00 - Encounter for general adult medical examination without abnormal findings Category: Medical Plan: Patient is advised to eat healthy, keep well hydrated, keep active and have adeq uate sleep. (2) Asthma: Comment: PFT 2011 Code(s): J45.909 - Unspecified asthma, uncomplicated Category: Medical Qualifiers: Asthma complication type: uncomplicated Asthma persistence: intermittent Asthma severity: mild Qualified Code(s): J45.20 - Mild intermittent asthma, uncomplicated Plan: Continue with albuterol inhaler as needed and on Flovent (3) Hyperlipidemia: Code(s): E78.5 - Hyperlipidemia, unspecified Category: Medical Qualifiers: Hyperlipidemia type: mixed hyperlipidemia Qualified Code(s): E78.2 - Mixed hyperlipidemia Plan: Avoid fried foods, chicken skin, eggs, butter margarine, pastries and meat. Be it pork or beef they have a lot of cholesterol LDL goal of less than 130 and triglyceride of less than 150 on fenofibrate and atorvastatin (4) GERD (gastroesophageal reflux disease): Code(s): K21.9 - Gastro-esophageal reflux disease without esophagitis Category: Medical Qualifiers: Esophagitis presence: without esophagitis Qualified Code(s): K21.9 - Gastro-esophageal reflux disease without esophagitis Plan: Avoid the foods that causes that usually spicy foods, tomato products, juices, coffee, soda and foods that your sensitive to. After eating do not lie down, allow 3-4 hours before in lie down. And keep the head of bed above 30 degrees to avoid the acid from going up. (5) Anemia: Code(s): D64.9 - Anemia, unspecified Category: Medical Plan: Will continue to monitor (6) Hypertension: Code(s): I10 - Essential (primary) hypertension Category: Medical Plan: Continue with blood pressure medication. Decrease salt intake and exercise on lisinopril hydrochlorothiazide 10/12.5 mg once a day (7) Overweight (BMI 25.0-29.9): Code(s): E66.3 - Overweight Category: Medical Plan: Diet and exercise (8) Insomnia: Code(s): G47.00 - Insomnia, unspecified Category: Medical (9) Constipation: Code(s): K59.00 - Constipation, unspecified Category: Medical (10) Insomnia: Code(s): G47.00 - Insomnia, unspecified Category: Medical (11) Generalized anxiety disorder: Code(s): F41.1 - Generalized anxiety disorder Category: Medical Plan History of Present Illness The patient is a 64-year-old male presenting for a wellness examination and ongoing management of chronic conditions including essential hypertension, GERD, asthma, hypercholesterolemia, insomnia, and peripheral arterial disease. Blood pressure is controlled with a combination of lisinopril and hydrochlorothiazide. GERD symptoms have persisted despite lifestyle modifications, with continued heartburn managed with dietary precautions and trial of medications. Asthma does not frequently bother him, and he uses an albuterol inhaler as needed, though reports scant need due to absence of notable shortness of breath. Hypercholesterolemia is managed with fenofibrate and atorvastatin, aiming for LDL and triglycerides goals that have been trending better over time. Despite use of zolpidem, sleep remains disrupted with nightmares, necessitating review of alternate management. The patient experiences constipation, usually relieved with [id number] Senna, though efforts to increase dietary fiber and water intake are ongoing. Following discovery of a tubular adenoma on prior colonoscopy, colon cancer screening with clinical support specialist follow-up remains crucial. Anxiety episodes are documented, affecting mobility particularly in challenging living conditions on a high floor with limited facilities. Health Maintenance - Colonoscopy last completed April 2024 showing tubular adenoma. Recommend monitoring. - Blood work in March 2023 revealed mild anemia with normal electrolytes, renal, blood sugar, and liver function. Improved cholesterol profile in September 2023. - Patient occasionally takes laxatives like Senna; proposal made for Linzess use. - Heartburn management: recommended avoidance of spicy foods, tomato products, juices, soda, and coffee. - Activity level improvement highlighted to manage weight and peripheral arterial disease. - Encourage dietary fiber consumption and adequate hydration. - Discussed sleep hygiene and trial of alternate medications like trazodone or ramelteon. - Flu vaccination offered during this visit; pneumonia vaccine due since last was in 2019. Social History - Lives in an apartment on the sixth floor, mobility affected by peripheral arterial disease. - Experiences anxiety related to home environment; no counselor currently consulted but suggested. - Reports regular alcohol consumption on weekends, notes excessive amount (8-12 drinks). - Denies smoking and recreational drug use. - Constipation related dietary habits discussed, low vegetable intake reported. - Anxiety particularly exacerbated by environmental factors (e.g., fear of heights, insect infestations). Review of Systems - General: Denies recent nausea, vomiting, or fever. - Cardiovascular: Reports no chest heaviness or ischemic symptoms. - Gastrointestinal: Reports heartburn; constipation persisting despite reduced Senna use. - Respiratory: Denies frequent shortness of breath recently. - Neurological: Reports insomnia with associated nightmares. - Psychiatric: Reports anxiety affecting mobility and coping with living conditions; denies recent counseling engagement. Physical Exam General: Cooperative, overweight, healthy appearing, comfortable, no acute distress and well developed Orientation: Patient oriented x3 Limitations: No limitations Head: Normal to inspection Ears: Hearing grossly normal bilaterally Nose: Normal external nose present Face and sinus: Normal facial exam Eyes: Appearance normal, both eyes and all related structures Neck: Normal visual inspection and Yes full ROM Respiratory: Normal respiratory effort but patient experiences shortness of breath. Clear to auscultation bilaterally Cardiovascular: Regular rate and rhythm. Normal S1 and S2 GI: Normal to inspection. Soft to palpation and nontender Skin: No rashes or lesions noted Neuro: Patient oriented x3 Extremities: Normal to inspection Results - Labs: March 2023 results indicated mild anemia, improved cholesterol profile by September 2023. - Tests: Colonoscopy April 2024 revealed tubular adenoma. - Imaging: Chest x-ray advised to further assess respiratory concerns. Plan I have recommended the continuation of lisinopril/hydrochlorothiazide for blood pressure management, and omeprazole has been added for his GERD symptoms. The patient needs follow-up with his clinical support specialist due to the previous finding of a tubular adenoma. Asthma control is well-managed with albuterol inhaler as needed. For insomnia, I propose a switch to trazodone or ramelteon. The patient's hypercholesterolemia management plan will continue with his current l ipid-lowering agents, and his diet and activity level should be reviewed regularly. The patient's constipation may benefit from Linzess after attempts with dietary adjustments. He should consider anxiety counseling to address his living situation and mobility concerns. Regular exercise and activity increase were advised to support peripheral arterial disease and general well-being. Lastly, the patient should adhere to healthier alcohol consumption practices. Patient was informed and verbally consented to the use of an ambient scribe for clinic note documentation during this visit. Discussion Notes I discussed with the patient the management options for his GERD, suggesting the addition of omeprazole and lifestyle changes such as dietary modifications. I emphasized the importance of follow-up with a clinical support specialist post- colonoscopy findings for surveillance of the tubular adenoma. For insomnia, we explored switching from zolpidem to potentially more effective agents like trazodone. His peripheral arterial disease symptoms should improve with physical activity, and I recommended initiation of regular exercise. We addressed issues of anxiety and proposed counseling for better management. The patient should remain vigilant on constipation management through diet and potential pharmacologic aids like Linzess. Counseling on limiting alcohol intake to align with current guidelines was also provided. Follow-up was recommended for further evaluation of the discussed interventions and their outcomes. Patient Instructions - Continue lisinopril/hydrochlorothiazide for blood pressure management as instructed. - Avoid trigger foods and incorporate omeprazole for heartburn. - Use albuterol inhaler as needed for asthma symptoms. - Take prescribed medications for hypercholesterolemia as discussed. - Implement dietary changes and try Linzess for managing constipation. - Limit alcohol intake, reducing to no more than 2 drinks per occasion. - Engage in regular exercise to improve overall health and manage peripheral arterial disease. - Consider scheduling with a counselor to address anxiety issues. - Schedule and attend follow-up with the clinical support specialist for surveillance. - Take the prescribed sleep medication daily and monitor its efficacy. - Stay hydrated and incorporate fiber into the diet for bowel health. - Return for follow-up care in three months to evaluate management plan effects. Orders: Orders PFT pulmonary function test Today J45.20 - Mild intermittent asthma, uncomplicated XR chest 2V Today J45.20 - Mild intermittent asthma, uncomplicated Influenza [id number] Immunization Today Z23 - Encounter for immunization Referrals Psychiatry Referral F41.1 - Generalized anxiety disorder Medications: New omeprazole 20 mg PO DAILY 30 caps 2RF K21.9 - Gastro-esophageal reflux disease without esophagitis linaclotide (Linzess) 145 mcg PO DAILY 30 caps 0RF K59.00 - Constipation, unspecified ramelteon 8 mg PO BEDTIME 30 tabs 0RF G47.00 - Insomnia, unspecified
[2024-05-22 09:52] VITALS: BP 110/74; PULSE 62; TEMP 36.6; O2SAT 94; BMI 28.5
--- OUTSIDE RECORDS SUMMARY | 2024-05-22 10:23 | XMS_ITS ---
Author Organization [facility] Address [address] [place] [address] Care Team Providers Care Political Theory Professor Name Role Phone Brain Robertson MD Primary Care Provider Samy Garcia Jr Unavailable REASON FOR VISIT screening Encounters Encounter Location Date Provider Diagnosis [facility] [place] Outpatient [address], [place] [id number] 05/05/2024 Samy Munoz Jr Colon cancer screening Z12.11 and Colon polyps K63.5 Assessments Encounter Date Diagnosis (ICD Code) Assessment Notes Treatment Notes Treatment Clinical Notes Section Notes 05/05/2024 Colon cancer screening (ICD-10 - Z12.11) 05/05/2024 Colon polyps (ICD-10 - K63.5) Plan Of Treatment No Information Progress Notes * ZANE LEWISSHARLAOB: [birth year] (64 yo M)Acc No.[id number]:05/05/2024 COLON WITH MAC Patient:?ZANE LEWISO Provider:?Samy Munoz MD :[id number]???Age:64 Y???Sex:Male Lukasz e:05/05/2024 Address:[address] [place] [address] Pcp:Brain Robertson MD Subjective: * Chief Complaints: * ???1. Screening. * Medical History:? Objective: * Vitals:? Assessment: * Assessment: 1.?Colon cancer screening - Z12.11 (Primary)???2.?Colon polyps - K63.5??? Plan: * Treatment: * Procedure Codes:?79936 LESIO N REMOVAL COLONOSCOPY, 45574 COLONOSCOPY AND BIOPSY, Modifiers: 59 , 0529F INTRVL 3+YRS PTS CLNSCP DOCD, Modifiers: 1P * * The named appointment provid er may or may not be the originator of this progress note, and it is not deemed complete until electronically signed by the appointment provider. Sign off status: Pending * Provider:?Samy Munoz MD Date:?0 05/05/2024 Generated for Jhoan mandujano/Paula/Yulianaitting on:?05/22/2024 10:23 AM EDT
--- OUTSIDE RECORDS SUMMARY | 2024-05-22 10:23 | XMS_ITS ---
Author Organization [facility] Address [address] [place] [address] Care Team Providers Care Tipple Boss Name Role Phone Brain Robertson MD Primary Care Provider Samy Garcia Jr Unavailable [phone] Allergies No Known Allergies REASON FOR VISIT Patient presents today for a screening colon/to be repeated Medications Medication SIG (Take, Route, Frequency, Duration) Notes [...] zide 10-12.5 MG Oral for 30 Active Immunizations Vaccine Route Administration Date Status Comme nts Influenza Unknown 03/09/2024 Refused Social History Alcohol Screen Question Answer Notes Did you [...] Weekly (3 points) Points 8 Interpretation Positive Vital Signs Temperature 97.6 degrees Fahrenheit 03/09/20 24 Blood pressure systolic 000 mm Hg 03/09/20 24 Blood pressure diastolic 00 mm Hg 024 Height 67 in 03/09/2024 Weight 180 lbs 03/09/2024 BMI 28.19 kg/m2 03/09/2024 Encounters Encounter Location Date Provider Diagnosis [facility] [address] [place] [address] 03/09/2024 Samy Munoz Jr Special screening for malignant neoplasms, colon Z12.11 and Encounter for long-term (current) use of NSAIDs Z79.1 Assessments Encounter Date Diagnosis (ICD Code) Assessment Notes Treatment Notes Treatment Clinical Notes Section Notes 03/09/2024 Special screening for malignant neoplasms, colon (ICD-10 - Z12.11) Colonoscopy material was printed We discussed colonoscopy today. We discussed risks and benefits of the procedure today. He understands these and agrees to proceed. He is advised to use a 2 day prep and will residue diet before the procedure. He is advised to stop meloxicam one week before the procedure. 03/09/2024 Encounter for long-term (current) use of NSAIDs (ICD-10 - Z79.1) We discussed colonoscopy today. We discussed risks and benefits of the procedure today. He understands these and agrees to proceed. He is advised to use a 2 day prep and will residue diet before the procedure. He is advised to stop meloxicam one week before the procedure. 03/09/2024 Other Colonoscopy material was printed We discussed colonoscopy today. We discussed risks and benefits of the procedure today. He understands these and agrees to proceed. He is advised to use a 2 day prep and will residue diet before the procedure. He is advised to stop meloxicam one week before the procedure. Plan Of Treatment Medication Medication Name Sig Start Date Stop [...] Appt Details Follow Up: 1 Year, Reason: Progress Notes * KATHRYN LEWISOB: [birth year] (64 yo M)Acc No.[id number]:03/09/2024 Progress Notes Patient:?KELSEY LEWIS Provider:?Samy Munoz MD :1960???Age:64 Y???Sex:Male Lukasz e:03/09/2024 Address:[address] [place] [address] Pcp:Brain Robertson MD Subjective: * Chief Complaints: * ???1. Patient presents today for a screening colon/to be repeated. * HPI: ???New symptom(s):? The patient is a pleasant 64-year-old man seen today in followup. He underwent colonoscopy in December of this year. The exam was limited by a poor prep. We reviewed this today. Followup was recommended in 6-12 months because of his incomplete prep, and we discussed this today. He has no rectal bleeding or change in his bowel habits. Weight and appetite have been stable. Diverticulosis was noted at the time of his last examination. * Medical History:?Hyperlipide felipe, Gastroesophageal reflux disease, BPH, Asthma, Hearing impairment, Elevated BMI, Vitamin D deficiency, Anxiety/depression, Fatty liver disease. * Family History:?Mother: joanne beauchamp 91 yrs, diagnosed with HTN (hypertension).? No family history of liver cancer or colon cancer. * Social History:?Tobacco Use:?Tobacco Use/Smoking?Are you a: nonsmoker.?Drugs/Alcohol:?Alcohol Screen?Did you have a drink containing alcohol in the past year??Yes,?How often did you have a drink containing alcohol in the past year??2 to 4 times a month (2 points),?How many drinks did you have on a typical day when you were drinking in the past year??7 to 9 drinks (3 points),?How often did you have 6 or more drinks on one occasion in the past year??Weekly (3 points),?Points?8,?Interpretation?Positive.?Miscellaneous:?Marital status: single. Occupation: [employer]. * Medications:?Taking Simvasta tin 20 MG Tablet TAKE 1 TABLET BY MOUTH EVERY DAY AT BEDTIME Oral , Taking Fenofibrate 160 MG Tablet Oral , Taking Zolpidem Tartrate 10 MG Tablet Oral , Taking Lisinopril-hydroCHLOROthiazide 10-12.5 MG Tablet Oral , Taking Atorvastatin Calcium 80 MG Tablet TOME SEBASTIAN TABLETA TODOS LOS D AL ACOSTARSE POR 90 SILVA Oral , Taking Senexon-S 8.6-50 MG Tablet Oral , Taking Meloxicam 15 MG Tablet TOME SEBASTIAN TABLETA TODOS LOS D Oral , Taking Fluticasone Propionate HFA 110 MCG/ACT Aerosol INHALE 2 PUFFS 2 TIMES A DAY Inhalation , Taking Albuterol Sulfate HFA 108 (90 Base) MCG/ACT Aerosol Solution TOME DOS INHALACIONES POR V A ORAL CADA SEIS HORAS CUANDO SEA NECESARIO Inhalation , Medication List reviewed and reconciled with the patient * Allergies:?N.K.D.A. Objective: * Vitals:?Wt: 180 lbs, Ht: 67 in, BMI:28.19 Index, BP: 000/00 mm Hg, Temp: 97.6. * Examination: ???General Examination: ???On examination today, he appears well. Skin is anicteric. Lungs are clear. Heart shows regular rate and rhythm. Abdomen is soft without focal mass or tenderness. Extremities are without edema. Assessment: * Assessment: 1.?Encounter for long-term ( current) use of NSAIDs - Z79.1 (Primary)?2.?Special screening for malignant neoplasms, colon - Z12.11? We discussed colonoscopy tod ay. We discussed risks and benefits of the procedure today. He understands these and agrees to proceed. He is advised to use a 2 day prep and will residue diet before the procedure. He is advised to stop meloxicam one week before the procedure. Plan: * Treatment: 2.?Others? Notes: Colonoscopy material was printed?? * Immunizations:? Influenza (Not administered - Refused: Patient decision) * Procedure Codes:?3017F COLOR ECTAL CA SCREEN DOC REV, G9745 DOC RSN FOR NOT SCREEN/REC F/U HBP * Preventive Medicine:? ??Counseling:?Care goal follow-up plan:?Above Normal BMI Follow-up?Giving encouragement to exercise,?BMI management provided?Yes.? ??Screenings:?Fall Risk Screening?Fall Risk Assessment:?No falls in the past year,?Screening:?No falls in the past year,?Assessment:?Not performed, no reason specified,?Plan of Care:?Not documented, no reason specified.? * Follow Up:?1 Year * * Sign off status: Completed true * Provider:?Samy Munoz MD Date:?1 Generated for Jhoan mandujano/Paula/eTransmitting on:?05/22/2024 10:23 AM EDT History and Physical Notes * HPI (History of Present Illness) Category Sub-Category Detail Notes Category Not es New symptom(s) The patient i s a pleasant 64-year-old man seen today in followup. He underwent colonoscopy in December of this year. The exam was limited by a poor prep. We reviewed this today. Followup was recommended in 6-12 months because of his incomplete prep, and we discussed this today. He has no rectal bleeding or change in his bowel habits. Weight and appetite have been stable. Diverticulosis was noted at the time of his last examination. Examination Category Sub-Category Detail Notes Category Not es General Examination On exami nation today, he appears well. Skin is anicteric. Lungs are clear. Heart shows regular rate and rhythm. Abdomen is soft without focal mass or tenderness. Extremities are without edema.
--- OUTSIDE RECORDS SUMMARY | 2024-05-22 10:23 | XMS_ITS ---
Author Organization [facility] Address [address] [place] [address] Care Team Providers Care Notereader Name Role Phone Brain Robertson MD Primary Care Provider Samy Garcia Jr [phone] REASON FOR VISIT pathology/3 yr colon recall Encounters Encounter Location Date Provider Diagnosis [facility] [address] [place] [address] 05/07/2024 Samy Munoz Jr Plan Of Treatment No Information Progress Notes * KATHRYN LEWISOB: [birth year] (64 yo M)Acc No.[id number]:05/07/2024 Patient:?JOSHUAZANEO :1960???Age:64 Y???Sex:Male Address:[address] [place] [address] , [place], [address] * true * Date:? Generated for Jhoan mandujano/Paula/eTransmitting on:?05/22/2024 10:23 AM EDT
--- OUTSIDE RECORDS SUMMARY | 2024-05-22 10:23 | XMS_ITS | Patient Health Record ---
Author Organization [facility] Address [address] [place] [address] Care Team Providers Care Hog Dropper Name Role Phone Brain Robertson MD Primary Care Provider Samy Garcia Jr Unavailable Allergies No Known Allergies Results Component Value Reference Range Notes Pathology Reviewed date:05/07/2024 09:14:06 PM Interpretation: Performing Lab:[facility], [address] [place] [phone] Notes/Report: Name: KapilRoque nguyen Age/Sex: 64/M : 1960 Unit#: [id number] Attend Dr: Samy Munoz MD Re05/05/24 Status : [facility] Location: [facility] Disch: SPEC : [id number] RECD: 05/05/24 STATUS: JACKI DUNN NUM: [id number] DOTTIE: 05/05/[address] [facility] [address]: Samy Munoz MD ENTERED: 05/05/24 SP TYPE: Surgical OTHR DR: Brain Robertson MD ORDERED: HE Stain/ , Gross Micro L4/4 COMMENTS: Dr. Peñaloza rd notified via email 05/05/24 @ 2147. Diagnosis A. Colon, at 80 cm, polyp: Tubular adenoma; negative for high-grade dysplasia and carcinoma. B. Colon, at 75 cm, polyp: Tubular adenoma; negative for high-grade dysplasia and carcinoma. C. Colon, at 40 cm, polyp: No tissue present for evaluation. D. Colon, rectal deborah yp: Colonic mucosa with mild hyperplastic changes and no adenomatous dysplasia. Clinical History Pre-Op Dx: Screening Post-Op Dx: Colon polyps Microscopic Description Microscopic sections reviewed. Material Received A. Polyp at 80 cm. B. Polyp at 75 cm. C. Polyp at 40 cm. D. Rectal polyp Gross Description Received in four parts. Part A: Received in formalin labeled ?polyp at 80 cm are 4 hernandez and hernandez-pink rectangular and papular tissue f ragments ranging from 0.3-0.4 cm, submitted in toto in a cassette labeled A. Part B: Received in formalin labeled ?polyp at 75 cm? is a 0.2 cm hernandez-pink papular tissue fragment, submitted in toto in a cassette labeled B. Part C: Received in a specimen container labeled ?polyp at 40 cm? are approximately 10 cc of clear formalin. N o tissue, mucus or blood is identified. Gross description only. The specimen container is retained. CONTINUED ON NEXT PAGE Name: Roque Dick to Age/Sex: 64/M : 1960 Unit#: [id number] Attend Dr: Samy Munoz MD Re05/05/24 Status : [facility] Location: [place] Disch: SPEC : [id number] RECD: 05/05/24 STATUS: JACKI DUNN NUM: [id number] DOTTIE: 05/05/[address] [facility] [address]: Samy Munoz MD ENTERED: 05/05/24 41 SP TYPE: Surgical OTHR DR: Brain Robertson MD ORDERED: HE Stain/12 , Gross Micro L4/4 COMMENTS: Dr. Peñaloza rd notified via email 05/05/24 @ 1121. Gross Description (Continued) Part D: Received in formalin labeled ?rectal polyp? are 2 hernandez irregular tissue fragments measuring 0.2 and 0. 3 cm, submitted in toto in a cassette labeled D. CEDS Copies To: Samy Munoz MD [address] [place], [place] [id number] Brain Robertson MD [facility] Primary Care,[address] [place] [address] Signed (si gnature on file) Nette Mario 05/07/24 1417 END OF REPORT Reason For Referral No Information Medications Medication SIG (Take, Route, Frequency, Duration) [...] Simvastatin 20 MG TAKE 1 TABLET BY EVERY DAY AT BEDTIME Oral for 30 Active Fenofibrate 160 MG Oral for 30 Active Zolpidem Tartrate 10 MG Oral for 30 Active Lisinopril-hydroCHLOROthia zide 10-12.5 MG Oral for 30 Active Immunizations Vaccine Route Administration Date Status Comme nts Influenza Unknown 01/29/2023 Administered Influenza Unknown 03/09/2024 Refused Social History Alcohol [...] Weekly (3 points) Points 8 Interpretation Positive Problems Problem Type SNOMED Code ICD Code Onset Dates Problem Status W/U Status Risk Notes Problem 761478854 Special screening for malignant neoplasms, colon (Z12.11) Active confirmed Problem [id number] Encounter for long-term (current) use of NSAIDs (Z79.1) Active confirmed Problem 97026753 Constipation, unspecified constipation type (K59.00) Active confirmed Vital Signs Temperature 97.6 degrees Fahrenheit 03/09/2024 Blood pressure diastolic 00 mm Hg 03/09/2024 Height 67 in 03/09/2024 Blood pressure systolic 000 mm Hg 03/09/2024 Weight 180 lbs 03/09/2024 BMI 28.19 kg/m2 03/09/2024 Encounters Encounter Location Date Provider Diagnosis [facility] [address] [place] [phone] 12/17/2023 Samy Munoz Jr Colon cancer screening Z12.11 [facility] [address] [place] [id number] 05/05/2024 Samy Munoz Jr Colon cancer screening Z12.11 and Colon polyps K63.5 [facility] [address] [place] [phone] 11/18/2023 Samy Munoz Jr Special screening for malignant neoplasms, colon Z12.11 ; Constipation, unspecified constipation type K59.00 and Encounter for long-term (current) use of NSAIDs Z79.1 [facility] [address] [place] [address] 03/09/2024 Samy Munoz Jr Special screening for malignant neoplasms, colon Z12.11 and Encounter for long-term (current) use of NSAIDs Z79.1 [facility] [address] [place] [phone] 07/29/2023 Samy Munoz Jr [facility] [address] [place] [phone] 07/30/2023 Samy Munoz Jr [facility] [address] [place] [phone] 05/07/2024 Samy Munoz Jr Assessments Encounter Date Diagnosis (ICD Code) Assessment Notes Treatment Notes Treatment Clinical Notes Section Notes 12/17/2023 Colon cancer screening (ICD-10 - Z12.11) 05/05/2024 Colon cancer screening (ICD-10 - Z12.11) 05/05/2024 Colon polyps (ICD-10 - K63.5) 11/18/2023 Special screening for malignant neoplasms, colon (ICD-10 - Z12.11) We discussed constipation today. We recommended he continue to use stool softeners. He can also use MiraLax on a p.r.n. basis. We discussed the high-fiber diet. He is due for colorectal cancer screening. This will be arranged. He understands risks and benefits and agrees to proceed. He is advised to stop meloxicam one week before the procedure. 11/18/2023 Constipation, unspecified constipation type (ICD-10 - K59.00) We discussed constipation today. We recommended he continue to use stool softeners. He can also use MiraLax on a p.r.n. basis. We discussed the high-fiber diet. He is due for colorectal cancer screening. This will be arranged. He understands risks and benefits and agrees to proceed. He is advised to stop meloxicam one week before the procedure. 03/09/2024 Special screening for malignant neoplasms, colon [...] stop meloxicam one week before the procedure. 11/18/2023 Encounter for long-term (current) use of NSAIDs (ICD-10 - Z79.1) We discussed constipation today. We recommended he continue to use stool softeners. He can also use MiraLax on a p.r.n. basis. We discussed the high-fiber diet. He is due for colorectal cancer screening. This will be arranged. He understands risks and benefits and agrees to proceed. He is advised to stop meloxicam one [...] week before the procedure. Plan Of Treatment Future Test Test Name Order Date COLONOSCOPY 09/09/2013 COLONOSCOPY 11/18/2023 COLONOSCOPY 03/12/2024 Insurance Providers Payer Name Payer Address Payer Phone Subscriber Number Group Number Insured Name Patient Relationship to Insured Coverage Start Date Coverage End Date [facility] [address] Attn Claims ISAIAS Yi [id number] KELSEY DICK Self - patient is the insured Medical (General) History Medical History History ICD Code Hyperlipidemia Gastroesophageal reflux disease BPH Asthma Hearing impairment Elevated BMI Vitamin D deficiency Anxiety/depression Fatty liver disease Surgical History Surgery Date(Month/Year)
== END 2024-05-22 11:23 | disposition home or self-care (01) ==
LOC: HO.HMCH 09:31
PROVIDERS: PCP Internal Medicine; Visit Provider Internal Medicine
DX: Z00.00 Encounter for general adult medical examination without abnormal findings (principal); J45.20 Mild intermittent asthma, uncomplicated; E78.2 Mixed hyperlipidemia; K21.9 Gastro-esophageal reflux disease without esophagitis; D64.9 Anemia, unspecified; I10 Essential (primary) hypertension; E66.3 Overweight; G47.00 Insomnia, unspecified; K59.00 Constipation, unspecified; F41.1 Generalized anxiety disorder; Z23 Encounter for immunization

== ENCOUNTER → 2024-05-22 11:38 | Outpatient (BNV) | payer OTHER, SELFPAY | PROVIDERS: PCP Internal Medicine; Visit Provider Radiology Diagnostic Radiology | DX: J45.20 Mild intermittent asthma, uncomplicated (principal) | CPT/HCPCS: 71046 ==

== ENCOUNTER 2024-07-02 13:29 | Outpatient (REF) | payer OTHER, SELFPAY ==
--- NOTE | 2024-07-02 13:36 | PFT_ITS ---
Spirometry [] Lung Volumes [] Diffusion Capacity [] Methacholine Challenge [] Flow Volume Loops [] MVV [] MIP/MEP(Max inspiratory pressure/Max expiratory pressure) [] 6 Minute Walk Test [] ABG [] Interpretation [] MTDD
[2024-07-02 14:20] VITALS: PULSE 58; O2SAT 96
== END 2024-07-02 13:30 | disposition home or self-care (01) ==
LOC: HO.RESP 13:29
PROVIDERS: PCP Internal Medicine; Visit Provider Internal Medicine
DX: J45.20 Mild intermittent asthma, uncomplicated (principal)
CPT/HCPCS: 94010; 94640; 94727; 94729

== ENCOUNTER → 2024-07-02 13:36 | Outpatient (BNV) | payer OTHER, SELFPAY | PROVIDERS: PCP Internal Medicine; Visit Provider Internal Medicine Pulmonary Disease | DX: J45.20 Mild intermittent asthma, uncomplicated (principal) | CPT/HCPCS: 94060; 94727; 94729 ==

== ENCOUNTER 2024-09-01 11:31 | Outpatient (AMB) | payer OTHER, SELFPAY ==
--- OUTSIDE RECORDS SUMMARY | 2023-12-17 06:50 | XMS_ITS ---
Author Organization [facility] Address [address] [place] [address] Care Team Providers Care Maritime Guard Name Role Phone Brain Robertson MD Primary Care Provider Samy Garcia Jr Unavailable [phone] REASON FOR VISIT screening Encounters Encounter Location Date Provider Diagnosis [facility] [place] [address] [place], [place] [phone] 12/17/2023 Samy Munoz Jr Colon cancer screening Z12.11 Assessments Encounter Date Diagnosis (ICD Code) Assessment Notes Treatment Notes Treatment Clinical Notes Section Notes 12/17/2023 Colon cancer screening (ICD-10 - Z12.11) Plan Of Treatment No Information Progress Notes * KATHRYN LEWISOB: 958 (64 yo M)Acc No.[id number]:12/17/2023 COLON WITH MAC Patient: KELSEY GARCIA Provider: Tylor Munoz MD :1960 A ge:63 Y S ex:Male Date:12/17/2023 Address:[address] [place], [place] [id number] Pcp:Brain Robertson MD Subjective: * Chief Complaints: * 1 . Screening. * Medical History: Objective: * Vitals: Assessment: * Assessment: 1. C olon cancer screening - Z12.11 (Primary) Plan: * Treatment: * Procedure Codes: 4 5378 DIAGNOSTIC COLONOSCOPY * * The named appointment provid er may or may not be the originator of this progress note, and it is not deemed complete until electronically signed by the appointment provider. Sign off status: Pending * Provider: Tylor Munoz MD Date: 1 Generated for Jhoan mandujano/Paula/Carrillo on: 0 09/01/2024 01:13 PM EDT
[2024-09-01 11:37] VITALS: BP 132/80; PULSE 90; O2SAT 94; BMI 29.5
--- NOTE | 2024-09-01 11:37 | A.OFFPC_ITS ---
Vital Signs 09/01/24 11:37 Height 5 ft 7 in Weight 188 lb 2 oz BMI 29.5 BP 132/80 Blood Pressure Location Lt brachial Position Sitting Pulse 90 Pulse Source Pulse Oximeter Pulse Oximetry (%) 94 Oxygen Delivery Method Room Air Intake Visit Reasons: JOCELYN, insomnia Blending Technician Required: No Accompanied by: Self / Same As Patient Allergies No Known Allergies (No Known Allergies*) Allergy (Verified 09/01/24 11:38) Tobacco use date assessed: 09/01/24 Fall risk assessment: No Falls in past year Last assessed Fall Risk: 09/01/24 Dental Screening Dental Screen Date: 09/01/24 Did you have a dental visit in the last 12 months?: Yes Did you have a dental problem in the last 6 months where you did not have access to dental care?: No Was dental information given to patient?: Patient has dentist [facility] Medical History (Updated 05/22/24 @ 11:05 by Brain Robertson MD) Colon cancer screening Blood pressure elevated without history of HTN SOB (shortness of breath) on exertion Insomnia Bilateral hand numbness Hard of hearing Obesity (BMI 30-39.9) BPH (benign prostatic hyperplasia) Vitamin D deficiency Hyperlipidemia Alcohol abuse Anxiety and depression Fatty liver Asthma Anemia GERD (gastroesophageal reflux disease) Surgical History H/O colonoscopy History of thumb surgery History of deviated nasal septum Family History Father Medical history unknown Mother No problems noted. Sister Heart attack Other Breast cancer Social History Housing: Apartment Are you a primary career guidance technician to a significant other at home: No Do you presently have visiting nurse or other home services: No Alcohol intake: current Alcohol intake frequency: a few times a month Alcohol type: beer and wine Comment: once a week 6-8 glasses Patient Tobacco Use Status: Never used Tobacco Tobacco use type: Cigarette e-Cigarette/Vaping Use: Never Used Second Hand Smoke Exposure: No service: No Current occupational status: unemployed Cognitive needs: Yes (Cane) Hearing needs: No Vision needs: Yes Questionnaire PHQ-9 Over the last 2 weeks, how often have you been bothered by any of the following problems? 1. Little interest or pleasure in doing things: not at all 2. Feeling down, depressed, or hopeless: not at all 3. Trouble falling or staying asleep, or sleeping too much: not at all 4. Feeling tired or having little energy: not at all 5. Poor appetite or overeating: not at all 6. Feeling bad about yourself - or that you are a failure or have let yourself or your family down: not at all 7. Trouble concentrating on things, such as reading the newspaper or watching television: not at all 8. Moving or speaking so slowly that other people could have noticed. Or the opposite - being so fidgety or restless that you have been moving around a lot more than usual: not at all 9. Thoughts that you would be better off or of hurting yourself in some way: not at all Total score: 0 Source: Developed by Drs. Pavan Thmoas, Leanne Sam, Mathew Wray and colleagues, with an educational mario from [employer]. Thrive Questionnaire Date Thrive assessed: 09/01/24 I am a: Patient What is your living situation today?: I have a steady place to live Within the past 12 months, did the food you bought not last and you didn't have the money to get more?: Never true Within the past 12 months, did you worry whether your food would run out before you got money to buy more?: Never true Do you have trouble paying for medicines?: No Do you have trouble getting transportation to medical appointments?: No Do you have trouble paying your heating and electricity bill?: No Do you have trouble taking care of your child, family member or friend?: No Do you have trouble with day-to-day activities such as bathing, preparing meals, shopping, managing finances, etc.?: No Are you currently unemployed and looking for a job?: No Are you interested in more education?: No Please select the resources that you would like help with: None Currently or been in a relationship where the following occur: No concerns reported THRIVE Score: 0 AUDIT C Alcohol Use Questionnaire (AUDIT-C) 1. How often do you have a drink containing alcohol?: Never 3. How often do you have six or more drinks on one occasion?: Never Total Score: 0 JOCELYN-7 AMB Questionnaire JOCELYN-7 Date JOCELYN - 7 assessed: 09/01/24 Feeling nervous, anxious, or on edge: 0 = Not at all Not being able to stop or control worryin = Not at all Worrying too much about different things: 0 = Not at all Trouble relaxin = Not at all Being so restless that it is hard to sit still: 0 = Not at all Becoming easily annoyed or irritable: 0 = Not at all Feeling afraid as if something awful might happen: 0 = Not at all Total JOCELYN-7 score (0-4 normal; 5-9 mild; 10-14 moderate; 15-21 severe): 0 Source: Developed by Drs. Pavan Thomas, Leanne Sam, Mathew Wray and colleagues, with an educational mario from [employer]. Physical exam (Primary Care) Vital Signs: Last Vital Signs Pulse 90 09/01/24 11:37 BP 132/80 09/01/24 11:37 Pulse Ox 94 09/01/24 11:37 Oxygen Delivery Method Room Air 09/01/24 11:37 BMI result Body Mass Index 29.5 Tobacco/Smoking Status: Tobacco use Status Tobacco use date assessed 09/01/24 09/01/24 11:42 Patient Tobacco Use Status Never used Tobacco 09/01/24 11:42 Tobacco use type Cigarette 09/01/24 11:42 e-Cigarette/Vaping Use Never Used 09/01/24 11:42 PHQ-9: PHQ-9 Score PHQ-9: Total score 0 09/01/24 12:03 Thrive Assessment: Date of Thrive Assessment Date Thrive assessed 09/01/24 09/01/24 11:42 Currently or been in a relationship where the following occur: No concerns reported Const General: alert; No acute distress Eyes Conjunctivae: conjunctivae normal Resp Auscultation: clear to auscultation bilaterally Cardio Rate: regular rate Rhythm: regular rhythm GI Inspection: Yes normal to inspection Extrem General: Yes normal to inspection and No edema Coding Level of Care Code Est Pt Level 4 (27601) Complex EM visit Add On G2211 Diagnoses Hypertension I10 Mixed hyperlipidemia E78.2 Hyperlipidemia type: mixed hyperlipidemia Impaired fasting blood sugar R73.01 Overweight (BMI 25.0-29.9) E66.3 Gastroesophageal reflux disease without esophagitis K21.9 Esophagitis presence: without esophagitis Insomnia G47.00 Assessment & Plan Assessment & Plan (1) Hypertension: Code(s): I10 - Essential (primary) hypertension Category: Medical Plan: Continue with blood pressure medication. Decrease salt intake and exercise patient is on lisinopril hydrochlorothiazide and will need blood work (2) Hyperlipidemia: Code(s): E78.5 - Hyperlipidemia, unspecified Category: Medical Qualifiers: Hyperlipidemia type: mixed hyperlipidemia Qualified Code(s): E78.2 - Mixed hyperlipidemia Plan: Avoid fried foods, chicken skin, eggs, butter margarine, pastries and meat. Be it pork or beef they have a lot of cholesterol LDL goal of less than 130 and triglyceride of less than 150 on atorvastatin and fenofibrate patient needs blood work (3) Impaired fasting blood sugar: Code(s): R73.01 - Impaired fasting glucose Category: Medical Plan: Decrease the amount of carbohydrate intake, pasta, bread, rice and potatoes are all sugar and that is aside from all the sweet stuff, remember that fruits are good but they are Sweet also. (4) Overweight (BMI 25.0-29.9): Code(s): E66.3 - Overweight Category: Medical Plan: Diet and exercise (5) GERD (gastroesophageal reflux disease): Code(s): K21.9 - Gastro-esophageal reflux disease without esophagitis Category: Medical Qualifiers: Esophagitis presence: without esophagitis Qualified Code(s): K21.9 - Gastro-esophageal reflux disease without esophagitis Plan: Avoid the foods that causes that usually spicy foods, tomato products, juices, coffee, soda and foods that your sensitive to. After eating do not lie down, allow 3-4 hours before in lie down. And keep the head of bed above 30 degrees to avoid the acid from going up. (6) Insomnia: Code(s): G47.00 - Insomnia, unspecified Category: Medical Plan History of Present Illness The patient is a 64-year-old male presenting for a follow-up visit. The patient has a history of asthma, which has been managed with regular medication and monitoring. He also has hypercholesterolemia, for which he is on atorvastatin and fenofibrate, with a target LDL cholesterol level of less than 130 mg/dL and triglycerides less than 150 mg/dL. The patient has impaired glucose tolerance, and lifestyle modifications including diet and exercise have been recommended. He also has peripheral arterial disease, which is being monitored regularly. Hypertension is another chronic condition for which the patient is taking lisinopril and hydrochlorothiazide. Regular blood work is required to monitor renal function and electrolyte levels. The patient also has generalized anxiety disorder, which is being managed with appropriate therapy. Preventative care measures include a colon cancer screening with a stool test, last conducted in April 2024. Health Maintenance - Colon cancer screening with stool test conducted in April 2024 - Blood work for renal function and electrolytes - Fasting blood test for glucose, cholesterol, and kidney function Social History Review of Systems Physical Exam Results - Pulmonary function test in June showed moderate restrictive ventilatory defect with no bronchodilator response, decreased expiratory reserve volume suggesting extrathoracic restriction likely from abdominal obesity - Chest X-ray in May showed normal chest - Blood work in March 2023 showed mild anemia Plan The patient will continue with current asthma management and regular monitoring. For hypercholesterolemia, the patient will maintain atorvastatin and fenofibrate therapy, with a goal to achieve LDL cholesterol less than 130 mg/dL and triglycerides less than 150 mg/dL. Lifestyle modifications, including diet and exercise, are recommended for impaired glucose tolerance. Peripheral arterial disease will be monitored regularly. Hypertension management includes lisinopril and hydrochlorothiazide, with regular blood work to monitor renal function and electrolytes. Generalized anxiety disorder will continue to be managed with appropriate therapy. Preventative care includes a colon cancer screening with a stool test, last conducted in April 2024. A fasting blood test is scheduled to assess glucose, cholesterol, and kidney function. Patient was informed and verbally consented to the use of an ambient scribe for clinic note documentation during this visit. Discussion Notes I discussed with the patient the importance of maintaining current asthma management and the goals for hypercholesterolemia treatment, including the target LDL and triglyceride levels. We reviewed the need for lifestyle modifications to manage impaired glucose tolerance and the importance of regular monitoring for peripheral arterial disease. I emphasized the necessity of regular blood work to monitor renal function and electrolytes due to hypertension treatment. We also discussed the management of generalized anxiety disorder and the continuation of therapy. Preventative care measures, including the colon cancer screening and the upcoming fasting blood test, were also addressed. Patient Instructions - Continue current asthma medications and monitoring. - Maintain atorvastatin and fenofibrate therapy for cholesterol management. - Follow lifestyle modifications for glucose tolerance, including diet and exercise. - Monitor blood pressure regularly and adhere to hypertension medications. - Attend scheduled fasting blood test for glucose, cholesterol, and kidney function. - Continue therapy for anxiety management. Orders: Orders Complete Blood Count Auto Diff Today E78.2 - Mixed hyperlipidemia Comprehensive Met. Panel Today E78.2 - Mixed hyperlipidemia Free T4 (Free Thyroxine) Today E78.2 - Mixed hyperlipidemia Thyroid Stimulating Hormone Today E78.2 - Mixed hyperlipidemia Lipid Panel Today E78.00 - Pure hypercholesterolemia, unspecified, E78.2 - Mixed hyperlipidemia Vitamin B12 and Folate Today E78.2 - Mixed hyperlipidemia Prostate Specific Antigen Scr Today E78.2 - Mixed hyperlipidemia Hemoglobin A1c Today E78.2 - Mixed hyperlipidemia Medications: Refilled zolpidem 10 mg PO BEDTIME PRN 30 tabs 1RF sleep G47.00 - Insomnia, unspecified Discontinued ramelteon Discontinued Reason: Patient Completed Course 8 mg PO BEDTIME 30 tabs 0RF G47.00 - Insomnia, unspecified
== END 2024-09-01 12:17 | disposition home or self-care (01) ==
LOC: HO.HMCH 11:32
PROVIDERS: PCP Internal Medicine; Visit Provider Internal Medicine
DX: I10 Essential (primary) hypertension (principal); E78.2 Mixed hyperlipidemia; R73.01 Impaired fasting glucose; E66.3 Overweight; K21.9 Gastro-esophageal reflux disease without esophagitis; G47.00 Insomnia, unspecified

== ENCOUNTER → 2024-09-01 11:31 | Outpatient (BNVA) | payer OTHER, SELFPAY | PROVIDERS: PCP Internal Medicine; Visit Provider Internal Medicine | DX: K21.9 Gastro-esophageal reflux disease without esophagitis (principal); G47.00 Insomnia, unspecified; I10 Essential (primary) hypertension; E78.2 Mixed hyperlipidemia; E66.3 Overweight; R73.01 Impaired fasting glucose; J45.909 Unspecified asthma, uncomplicated; Z68.29 Body mass index [BMI] 29.0-29.9, adult | CPT/HCPCS: 96127; 99212 ==

== ENCOUNTER 2024-09-21 08:06 | Outpatient (REF) | payer OTHER, SELFPAY ==
--- OUTSIDE RECORDS SUMMARY | 2023-12-17 06:50 | XMS_ITS ---
Author Organization [facility] Address [address] [place] [address] Care Team Providers Care Kitchen Worker Name Role Phone Brain Robertson MD Primary Care Provider Samy Garcia Jr Unavailable REASON FOR VISIT screening Encounters Encounter Location Date Provider Diagnosis [facility] Outpatient [address] [place], [place] [phone] 12/17/2023 Samy Munoz Jr Colon cancer screening Z12.11 Assessments Encounter Date Diagnosis (ICD Code) Assessment Notes Treatment Notes Treatment Clinical Notes Section Notes 12/17/2023 Colon cancer screening (ICD-10 - Z12.11) Plan Of Treatment No Information Progress Notes * KATHRYN LEWISOB: 958 (64 yo M)Acc No.[id number]:12/17/2023 COLON WITH MAC Patient: KELSEY GARCIA Provider: Tylor Munoz MD :1960 A ge:63 Y S ex:Male Date:12/17/2023 Address:[address] [place], [place] [phone] Pcp:Brain Robertson MD Subjective: * Chief Complaints: [...] 1 Generated for Jhoan mandujano/Paula/Carrillo on: 0 09/21/2024 08:09 AM SHANNON
[2024-09-21 08:16] LABS: MANUAL DIFF FLAG NO
[2024-09-21 08:43] LABS: Hematocrit 41.1 % (42.0-52.0); Hemoglobin 13.3 g/dl (14.0-18.0); Imm Gran Abs Auto 0.05 X10*3/uL (0.00-0.03); Imm Gran Pct Auto 0.5 % (0.0-0.4); Lymphocytes Absolute Auto 2.7 X10*3/uL (1.2-4.9); Mean Corpuscular HGB Conc 32.4 g/dl (31.0-36.0); Mean Corpuscular Hemoglobin 29.2 pg (27.0-33.0); Mean Corpuscular Volume 90.1 fL (80.0-98.0); NRBC Abs Auto 0.000 X10*3/uL (0.0-0.012); NRBC Pct Auto 0.0 /100WBC (0.0-0.2); Platelet Count 229 X10*3/uL (160-400); Red Blood Count 4.56 X10*6/uL (4.60-5.80); White Blood Count 9.3 X10*3/uL (4.8-10.8)
[2024-09-21 08:51] LABS: Hemoglobin A1C 125.7773 umol/L; Total Hemoglobin (HGBA1C) 3553.6454 umol/L
[2024-09-21 09:19] LABS: Anion Gap 12 (12-20); Blood Urea Nitrogen 15 mg/dL (9-16); Calcium 9.5 mg/dL (8.4-10.2); Carbon Dioxide 26 mmol/L (22-29); Chloride 105 mmol/L (96-108); Estimated Glomerular Filt Rate > 60; Potassium 3.7 mmol/L (3.3-5.1); Sodium 139 mmol/L (135-145)
[2024-09-21 09:20] LABS: Alanine Aminotransferase 29 U/L (0-40); Albumin Level 4.5 g/dL (3.5-5.0); Alkaline Phosphatase 42 U/L (39-117); Aspartate Amino Transferase 21 U/L (5-37); Cholesterol 206 mg/dL (<200); HDL Cholesterol 43 mg/dL (>40); Total Protein 7.3 g/dL (6.5-8.0); Triglycerides 214 mg/dL (<150)
[2024-09-21 09:43] LABS: Free T4 (Free Thyroxine) 0.88 ng/dL (0.71-1.85); Thyroid Stimulating Hormone 1.54 uIU/mL (0.32-4.0)
[2024-09-21 09:46] LABS: Folate 10.0 ng/mL (> or = 4.0); Vitamin B12 490 pg/mL (200-900)
== END 2024-09-21 08:07 | disposition home or self-care (01) ==
LOC: HO.LAB 08:06
PROVIDERS: PCP Internal Medicine; Visit Provider Internal Medicine
DX: E78.2 Mixed hyperlipidemia (principal)
CPT/HCPCS: 36415; 80053; 80061; 82607; 82746; 83036; 84153; 84439; 84443; 85025

== ENCOUNTER 2024-12-21 13:59 | Outpatient (AMB) | payer OTHER, SELFPAY ==
--- OUTSIDE RECORDS SUMMARY | 2023-09-09 07:00 | XMS_ITS ---
Author Organization [facility] Address [address] [place] [address] Care Team Providers Care Warrant Server Name Role Phone Brain Robertson MD Primary Care Provider Samy Garcia Jr REASON FOR VISIT Patient presents today for a screening colonoscopy Encounters Encounter Location Date Provider Diagnosis [facility] [address] [place] [address] 09/09/2023 Samy Munoz Jr Plan Of Treatment No Information Progress Notes * KATHRYN LEWISOB: [birth year] (64 yo M)Acc No.[id number]:09/09/2023 Progress Notes Patient: KELSEY GARCIA Provider: Tylor Munoz MD :1960 A ge:63 Y S ex:Male Date:09/09/2023 Address:[address] [place], [place] [id number] Pcp:Brain Robertson MD Subjective: * Chief Complaints: * 1 . Patient presents today for a screening colonoscopy. * Medical History: Objective: * Vitals: Assessment: Plan: * Treatment: * * The named appointment provid er may or may not be the originator of this progress note, and it is not deemed complete until electronically signed by the appointment provider. Sign off status: Pending * Provider: Tylor Munoz MD Date: 0 09/09/2023 Generated for Kuldipi ng/Fahaig/eTransmitting on: 02:02 PM EDT
--- OUTSIDE RECORDS SUMMARY | 2023-12-17 06:50 | XMS_ITS ---
Author Organization [facility] Address [address] [place] [address] Care Team Providers Care Telehealth Nurse Educator Name Role Phone Brain Robertson MD Primary Care Provider Samy Garcia Jr Unavailable REASON FOR VISIT screening Encounters Encounter Location Date Provider Diagnosis [facility] [place] [address] [place], [place] [phone] 12/17/2023 Samy Munoz Jr Colon cancer screening Z12.11 Assessments Encounter Date Diagnosis (ICD Code) Assessment Notes Treatment Notes Treatment Clinical Notes Section Notes 12/17/2023 Colon cancer screening (ICD-10 - Z12.11) Plan Of Treatment No Information Progress Notes * KATHRYN LEWISOB: 958 (64 yo M)Acc No.[id number]:12/17/2023 COLON WITH MAC Patient: KELSEY GARCIA Provider: yTlor Munoz MD :1960 A ge:63 Y S ex:Male Date:12/17/2023 Address:[address] [place], [place] [id number] Pcp:Brain Robertson MD Subjective: * Chief Complaints: [...] Date: 1 Generated for Jhoan mandujano/Paula/Carrillo on: 1 02:01 PM RUBIOT
--- OUTSIDE RECORDS SUMMARY | 2024-05-05 03:30 | XMS_ITS ---
Author Organization [facility] Address [address] [place] [address] Care Team Providers Care Mutual Fund Sales Agent Name Role Phone Brain Robertson MD Primary Care Provider Samy Garcia Jr Unavailable [phone] REASON FOR VISIT screening Encounters Encounter Location Date Provider Diagnosis [facility] [place] [facility] [address] [place] [phone] 05/05/2024 Samy Munoz Jr Colon cancer screening Z12.11 and Colon polyps K63.5 Assessments Encounter Date Diagnosis (ICD Code) Assessment Notes Treatment Notes Treatment Clinical Notes Section Notes 05/05/2024 Colon cancer screening (ICD-10 - Z12.11) 05/05/2024 Colon polyps (ICD-10 - K63.5) Plan Of Treatment No Information Progress Notes * KATHRYN LEWISOB: [birth year] (64 yo M)Acc No.[id number]:05/05/2024 COLON WITH MAC Patient: KELSEY GARCIA Provider: Tylor Munoz MD :1960 A ge:64 Y S ex:Male Date:05/05/2024 Address:[address] [place] [address] Pcp:Brain Robertson MD Subjective: * Chief Complaints: * 1 . Screening. * Medical History: Objective: * Vitals: Assessment: * Assessment: 1. C olon cancer screening - Z12.11 (Primary) 2 . C olon polyps - K63.5? Plan: * Treatment: * Procedure Codes: 4 5385 LESION REMOVAL COLONOSCOPY, 07964 COLONOSCOPY AND BIOPSY, Modifiers: 59 , 0529F INTRVL 3+YRS PTS CLNSCP DOCD, Modifiers: 1P * * The named appointment provid er may or may not be the originator of this progress note, and it is not deemed complete until electronically signed by the appointment provider. Sign off status: Pending * Provider: Tylor Munoz MD Date: 0 05/05/2024 Generated for Jhoan mandujano/Paula/Yulianaitting on: 1 02:02 PM EDT
--- OUTSIDE RECORDS SUMMARY | 2024-12-21 14:02 | XMS_ITS | Patient Health Record ---
Author Organization [facility] Address [address] [place] [address] Care Team Providers Care Rn Endocrinology Name Role Phone Brain Robertson MD Primary Care Provider Samy Garcia Jr Unavailable Allergies No Known Allergies Results Component Value Reference Range Notes Pathology Reviewed date:05/07/2024 09:14:06 PM Interpretation: Performing Lab:[facility], [address] [place] [phone] Notes/Report: Reason For Referral No Information Medications Medication SIG (Take, Route, Frequency, Duration) Notes Start Date End Date Status Atorvastatin Calcium 80 MG TOME SEBASTIAN TABL ETA TODOS LOS D AL ACOSTARSE POR 90 SILVA Oral; Duration: 90 Active MiraLax (colon prep) 17 GM/SCOOP mixed with Gatorade or Crystal Light Orally begin at 5:00 p.m. the day before the procedure; Duration: 1 day 03/12/2024 Active Senexon-S 8.6-50 MG Oral; Duration: 30 Active Meloxicam 15 MG TOME SEBASTIAN TABLETA TOD OS LOS D Oral; Duration: 30 Active Fluticasone Propionate HFA 110 MCG/ACT INHALE 2 PUFFS 2 TIMES A DAY Inhalation; Duration: 30 Active Albuterol Sulfate HFA 108 (90 Base) MCG/ACT TOME DOS INHALACIONES POR V A ORAL CADA SEIS HORAS CUANDO SEA NECESARIO Inhalation; Duration: 25 Active Simvastatin 20 MG TAKE 1 TABLET BY CAROLYNN TH EVERY DAY AT BEDTIME Oral; Duration: 30 Active Fenofibrate 160 MG Oral; Duration: 30 Active Zolpidem Tartrate 10 MG Oral; Duration: 30 Active Lisinopril-hydroCHLOROthia zide 10-12.5 MG Oral; Duration: 30 Active Immunizations Vaccine Route Administration Date [...] Problem Status W/U Status Risk Notes Problem Screening for malignant neoplasm of colon ([id number]) Special screening for malignant neoplasms, colon (Z12.11) Active confirmed Problem terminal carman current use of non-steroidal anti-inflammator y drug ([id number] ) Encounter for long-term (current) use of NSAIDs (Z79.1) Active confirmed Problem Constipation ([id number]) Constipation, unspecified constipation type (K59.00) Active confirmed Vital Signs Temperature 97.6 degrees Fahrenheit 03/09/2024 Blood pressure diastolic 00 mm Hg 03/09/2024 Height 67 in 03/09/2024 Blood pressure systolic 000 mm Hg 03/09/2024 Weight 180 lbs 03/09/2024 BMI 28.19 kg/m2 03/09/2024 Encounters Encounter Location Date Provider Diagnosis [facility] [address] [place] [id number] 05/05/2024 Samy Munoz Jr Colon cancer screening Z12.11 and Colon polyps K63.5 [facility] [address] [place] [phone] 03/09/2024 Samy Munoz Jr Special screening for malignant neoplasms, colon Z12.11 and Encounter for long-term (current) use of NSAIDs Z79.1 [facility] [address] [place] [phone] 05/07/2024 Samy Munoz Jr Assessments Encounter Date Diagnosis (ICD Code) Assessment Notes Treatment Notes Treatment Clinical Notes Section Notes 05/05/2024 Colon cancer screening (ICD-10 - Z12.11) 05/05/2024 Colon polyps (ICD-10 - K63.5) 03/09/2024 Special screening for malignant neoplasms, colon [...] Insured Coverage Start Date Coverage End Date [facility] [address] Attn Claims ISAIAS Yi [id number] KELSEY LEWIS Self - patient is the insured Medical (General) History Medical History History ICD Code Hyperlipidemia Gastroesophageal reflux disease BPH Asthma Hearing impairment Elevated BMI Vitamin D deficiency Anxiety/depression Fatty liver disease Surgical History Surgery Date(Month/Year)
[2024-12-21 14:28] VITALS: BP 148/82; PULSE 74; O2SAT 98; BMI 29.0
--- NOTE | 2024-12-21 14:28 | MHC.PC.OV ---
Vital Signs 12/21/24 14:28 Height 5 ft 7 in Weight 185 lb BMI 29.0 BP 148/82 H Blood Pressure Location Lt brachial Position Sitting Pulse 74 Pulse Source Pulse Oximeter Pulse Oximetry (%) 98 Oxygen Delivery Method Room Air Intake Visit Reasons: insomnia Allergies No Known Allergies (No Known Allergies*) Allergy (Verified 12/21/24 14:29) Tobacco use date assessed: 09/01/24 Fall risk assessment: No Falls in past year Last assessed Fall Risk: 12/21/24 Dental Screening Dental Screen Date: 09/01/24 [facility] Medical History (Updated 12/21/24 @ 14:45 by Brain Robertson MD) Peripheral arterial disease Colon cancer screening Blood pressure elevated without history of HTN SOB (shortness of breath) on exertion Insomnia Bilateral hand numbness Hard of hearing Obesity (BMI 30-39.9) BPH (benign prostatic hyperplasia) Vitamin D deficiency Hyperlipidemia Alcohol abuse Anxiety and depression Fatty liver Asthma Anemia GERD (gastroesophageal reflux disease) Surgical History H/O colonoscopy History of thumb surgery History of deviated nasal septum Family History Father Medical history unknown Mother No problems noted. Sister Heart attack Other Breast cancer Social History Housing: Apartment Are you a primary skin care technician to a significant other at home: No Do you presently have visiting nurse or other home services: No Alcohol intake: current Alcohol intake frequency: a few times a month Alcohol type: beer and wine Comment: once a week 6-8 glasses Patient Tobacco Use Status: Never used Tobacco Tobacco use type: Cigarette e-Cigarette/Vaping Use: Never Used Second Hand Smoke Exposure: No service: No Current occupational status: unemployed Cognitive needs: Yes (Cane) Hearing needs: No Vision needs: Yes Questionnaire Thrive Questionnaire Date Thrive assessed: 09/01/24 I am a: Patient What is your living situation today?: I have a steady place to live Within the past 12 months, did the food you bought not last and you didn't have the money to get more?: Never true Within the past 12 months, did you worry whether your food would run out before you got money to buy more?: Never true Do you have trouble paying for medicines?: No Do you have trouble getting transportation to medical appointments?: No Do you have trouble paying your heating and electricity bill?: No Do you have trouble taking care of your child, family member or friend?: No Do you have trouble with day-to-day activities such as bathing, preparing meals, shopping, managing finances, etc.?: No Are you currently unemployed and looking for a job?: No Are you interested in more education?: No Please select the resources that you would like help with: None Currently or been in a relationship where the following occur: No concerns reported THRIVE Score: 0 JOCELYN-7 AMB Questionnaire JOCELYN-7 Date JOCELYN - 7 assessed: 09/01/24 Source: Developed by Drs. Pavan Thomas, Leanne Sam, Mathew Wray and colleagues, with an educational mario from [employer]. Physical exam (Primary Care) Vital Signs: Last Vital Signs Pulse 74 12/21/24 14:28 BP 148/82 H 12/21/24 14:28 Pulse Ox 98 12/21/24 14:28 Oxygen Delivery Method Room Air 12/21/24 14:28 BMI result Body Mass Index 29.0 Tobacco/Smoking Status: Tobacco use Status Tobacco use date assessed 09/01/24 12/21/24 14:32 Patient Tobacco Use Status Never used Tobacco 12/21/24 14:32 Tobacco use type Cigarette 12/21/24 14:32 e-Cigarette/Vaping Use Never Used 12/21/24 14:32 Thrive Assessment: Date of Thrive Assessment Date Thrive assessed 09/01/24 12/21/24 14:32 Currently or been in a relationship where the following occur: No concerns reported Const General: alert; No acute distress Eyes Conjunctivae: conjunctivae normal Resp Auscultation: clear to auscultation bilaterally Cardio Rate: regular rate Rhythm: regular rhythm GI Inspection: Yes normal to inspection Extrem General: Yes normal to inspection and No edema Office Procedures Flu Questionnaire Does the patient have a severe egg allergy?: No Does the patient have severe life threatening allergies?: No Does the patient have a fever or illness today?: No Has the patient ever had Guillain-[place] Syndrome?: No Has the patient ever had any past reaction to a flu shot?: No Immunizations Fluarix [id number] (PF) 45 mcg (15 mcg x 3)/0.5 mL IM syringe Performing Provider: Brain Robertson MD [facility] [place] [facility] Administered by: Ashley Wilder CMA on 12/21/24 14:35 Dose Route Admin Location Dispensed Lot Number Expiration Date NDC Letterer 0.5 mL IM Left Deltoid 0.5 mL [id number] 09/07/25 09123-994-83 Ogone VIS Given Date VIS Provided VIS Publication Date 12/21/24 Single Vaccine 24 Eligibility Eligibility Date Funding Source Not [facility] Eligible 12/21/24 Private Coding Level of Care Code Est Pt Level 4 (04222) Complex EM visit Add On G2211 Diagnoses Hypertension I10 Mixed hyperlipidemia E78.2 Hyperlipidemia type: mixed hyperlipidemia Overweight (BMI 25.0-29.9) E66.3 Impaired fasting blood sugar R73.01 Gastroesophageal reflux disease without esophagitis K21.9 Esophagitis presence: without esophagitis Anemia D64.9 Mild intermittent asthma without complication J45.20 Asthma complication type: uncomplicated Asthma persistence: intermittent Asthma severity: mild Insomnia G47.00 Assessment & Plan Assessment & Plan (1) Hypertension: Code(s): I10 - Essential (primary) hypertension Category: Medical Plan: Continue with blood pressure medication. Decrease salt intake and exercise on lisinopril hydrochlorothiazide 10/12.5 mg once a day (2) Hyperlipidemia: Code(s): E78.5 - Hyperlipidemia, unspecified Category: Medical Qualifiers: Hyperlipidemia type: mixed hyperlipidemia Qualified Code(s): E78.2 - Mixed hyperlipidemia Plan: Avoid fried foods, chicken skin, eggs, butter margarine, pastries and meat. Be it pork or beef they have a lot of cholesterol LDL goal of less than 130 and triglyceride of less than 150 on atorvastatin 80 mg once a day fenofibrate 160 mg once a day (3) Overweight (BMI 25.0-29.9): Code(s): E66.3 - Overweight Category: Medical Plan: Diet and exercise (4) Impaired fasting blood sugar: Code(s): R73.01 - Impaired fasting glucose Category: Medical Plan: Decrease the amount of carbohydrate intake, pasta, bread, rice and potatoes are all sugar and that is aside from all the sweet stuff, remember that fruits are good but they are Sweet also. (5) GERD (gastroesophageal reflux disease): Code(s): K21.9 - Gastro-esophageal reflux disease without esophagitis Category: Medical Qualifiers: Esophagitis presence: without esophagitis Qualified Code(s): K21.9 - Gastro-esophageal reflux disease without esophagitis Plan: Avoid the foods that causes that usually spicy foods, tomato products, juices, coffee, soda and foods that your sensitive to. After eating do not lie down, allow 3-4 hours before in lie down. And keep the head of bed above 30 degrees to avoid the acid from going up. (6) Anemia: Code(s): D64.9 - Anemia, unspecified Category: Medical Plan: Continuing to monitor (7) Asthma: Comment: PFT 2011 Code(s): J45.909 - Unspecified asthma, uncomplicated Category: Medical Qualifiers: Asthma complication type: uncomplicated Asthma persistence: intermittent Asthma severity: mild Qualified Code(s): J45.20 - Mild intermittent asthma, uncomplicated Plan: On albuterol inhaler. (8) Insomnia: Code(s): G47.00 - Insomnia, unspecified Category: Medical Plan: On zolpidem. Discussed about the medication Plan History of Present Illness The patient is a 64-year-old male presenting with the management of chronic conditions including GERD, hypercholesterolemia, asthma, hypertension, and anxiety disorder. The patient has a history of Gastroesophageal Reflux Disease (GERD) and is advised to monitor his diet to manage symptoms. He is currently on medication to manage his reflux symptoms. The patient has been diagnosed with hypercholesterolemia and is on atorvastatin and fenofibrate to manage his cholesterol levels. His LDL cholesterol is 121 mg/dL, and triglycerides are 214 mg/dL, which are above the desired levels. Dietary modifications have been recommended to help lower these levels. The patient has a history of asthma and uses an albuterol inhaler as needed, approximately once a month. Hypertension is managed with lisinopril and hydrochlorothiazide, with a dosage of 10/12.5 mg once daily. The patient has a history of anxiety disorder and is currently on zolpidem for sleep disturbances. The medication is noted to be habit-forming but not addictive. The patient has mild anemia with a hemoglobin level of 13.3 g/dL, which has been stable for five years. Dietary advice includes increasing iron intake through green leafy vegetables. Preventative care measures include a colon cancer screening completed in April 2024 and an influenza vaccination recently administered. The patient is also advised to consider the shingles vaccination, which is a two-part series. Health Maintenance - Colon cancer screening completed in April 2024 - Influenza vaccination recently administered - Shingles vaccination recommended, two-part series Social History - Exercise: Advised to engage in regular physical activity to improve cholesterol levels - Diet: Advised to avoid fried foods, fast foods, and high-fat meats to manage cholesterol and triglyceride levels Review of Systems - Cardiovascular: Denies chest pain or palpitations - Respiratory: Reports using albuterol inhaler as needed, denies frequent wheezing or dyspnea - Gastrointestinal: Reports stable GERD symptoms with current management - Neurological: Reports using zolpidem for sleep disturbances, denies other neurological symptoms Physical Exam Results - Labs: Hemoglobin 13.3 g/dL, LDL cholesterol 121 mg/dL, triglycerides 214 mg/dL - Labs: Electrolytes, renal function, liver function, B12, folic acid, and thyroid levels all within normal limits Plan Patient was informed and verbally consented to the use of an ambient scribe for clinic note documentation during this visit. 1. Gastroesophageal Reflux Disease (Gerd) The patient is advised to continue monitoring his diet to manage GERD symptoms and continue current medication regimen. 2. Hypercholesterolemia The patient is on atorvastatin and fenofibrate to manage cholesterol levels, with dietary modifications recommended to further reduce LDL and triglyceride levels. 3. Asthma The patient uses an albuterol inhaler as needed, approximately once a month, to manage asthma symptoms. 4. Hypertension Hypertension is managed with lisinopril and hydrochlorothiazide, 10/12.5 mg once daily. 5. Anxiety Disorder The patient is currently on zolpidem for sleep disturbances related to anxiety disorder, with a discussion on the habit-forming nature of the medication. 6. Mild Anemia The patient is advised to increase dietary iron intake through green leafy vegetables to manage mild anemia. Discussion Notes I discussed with the patient the importance of dietary modifications to manage cholesterol and triglyceride levels, emphasizing the need to avoid high-fat foods. We also reviewed the use of zolpidem for sleep disturbances, noting its habit-forming potential, and the need for regular monitoring of asthma symptoms with the use of an albuterol inhaler. Preventative care measures, including the recent influenza vaccination and the recommendation for a shingles vaccination, were also discussed. Patient Instructions - Continue current medications as prescribed. - Monitor diet to manage cholesterol and GERD symptoms. - Use albuterol inhaler as needed for asthma symptoms. - Consider shingles vaccination, available at pharmacies. - Follow up for regular monitoring of chronic conditions. Orders: Orders Influenza [id number] Immunization Today Z23 - Encounter for immunization Referrals Psychiatry Referral F41.1 - Generalized anxiety disorder
== END 2024-12-21 15:00 | disposition home or self-care (01) ==
LOC: HO.HMCH 14:00
PROVIDERS: PCP Internal Medicine; Visit Provider Internal Medicine
DX: I10 Essential (primary) hypertension (principal); E78.2 Mixed hyperlipidemia; E66.3 Overweight; R73.01 Impaired fasting glucose; K21.9 Gastro-esophageal reflux disease without esophagitis; D64.9 Anemia, unspecified; J45.20 Mild intermittent asthma, uncomplicated; G47.00 Insomnia, unspecified; Z23 Encounter for immunization

== ENCOUNTER → 2024-12-21 13:59 | Outpatient (BNVA) | payer OTHER, SELFPAY | PROVIDERS: PCP Internal Medicine; Visit Provider Internal Medicine | DX: I10 Essential (primary) hypertension (principal); Z23 Encounter for immunization; E78.2 Mixed hyperlipidemia; E66.3 Overweight; Z68.29 Body mass index [BMI] 29.0-29.9, adult; R73.01 Impaired fasting glucose; K21.9 Gastro-esophageal reflux disease without esophagitis; D64.9 Anemia, unspecified; J45.20 Mild intermittent asthma, uncomplicated; G47.00 Insomnia, unspecified; Z79.899 Other long term (current) drug therapy | CPT/HCPCS: 90471; 90656; 99212 ==